=== PATIENT | male | born 1945 | race Caucasian/White ===

== ENCOUNTER 2017-07-12 12:04 | Emergency (ER) | payer OTHER, MEDICARE ==
[~2017-07-12] VITALS: Ht 179.1 cm; Wt 80.9 kg
[~2017-07-12 12:04] MED LIST: ASPI81TA21 PO; ATEN25TA PO; CLOP1TAB54 PO; FISHOIL PO; GEMF600T PO; LISI-729 PO; MULT-506 PO; NITR0.4S UT; ROSU5TAB PO
[2017-07-12 12:20] VITALS: Ht 179.1 cm; Wt 80.9 kg
[2017-07-12] MEDS ORDERED: ASPIRIN 81 MG CHEW PO STA (12:36)
[2017-07-12 12:46] VITALS: TEMP 36.6
--- NOTE | 2017-07-12 12:54 | DIAGNOSTIC IMAGING REPORT ---
CHEST ONE VIEW PORTABLE CLINICAL HISTORY: chest pain dyspnea COMPARISON STUDY: 08/10/2014 FINDINGS: The bones soft tissues and hemidiaphragms are normal. The cardiomediastinal silhouette is normal. The lungs are clear. The pulmonary vasculature is normal. IMPRESSION: Negative chest. The above report was generated using voice recognition software. It may contain grammatical, syntax or spelling errors. Electronically signed by: Abhi Razo M.D. 07/12/2017 12:53 PM Dictated Date/Time: 07/12/2017 12:51 PM
[2017-07-12] MEDS ORDERED: AMLO2.5T PO (13:04)
[2017-07-12] MEDS ORDERED: ATEN50TA8 PO (13:04)
--- NOTE | 2017-07-12 13:09 | EMERGENCY ROOM VISIT NOTE ---
History Report prepared by Carie: Betzy Soares Under the Supervision of: Dr. Giselle Parr M.D. First contact with patient: 12:28 Chief Complaint: CHEST PAIN Stated Complaint: CHEST PAINS-REF BY History of Present Illness The patient is a 72 year old male who presents to the Emergency Room with complaints of intermittent chest pain that initially began this morning when he woke. The patient's states that the patient complained of chest pain at 15 -20 minutes apart. The patient states that the pain lasts 2 seconds at a time. The patient states that this has happened in the past. He states that he took three nitro prior to arrival. The patient states that his last pain was at 1147. He reports a history of stents. The patient states that he took 81 mg of Aspirin today prior to arrival. The patient's reports that this happened to the patient while at a volleyball game a few months ago, noting that the patient's blood pressure was high at the time. The patient denies being a smoker, but was a heavy smoker in the past. He quit in 2007. Source of History: patient Onset: this morning when he woke Position: chest Timing: intermittent Review of Systems See HPI for pertinent positives & negatives. A total of 10 systems reviewed and were otherwise negative. Past Medical & Surgical Medical Problems: (1) Atherosclerotic coronary vascular disease (2) Dyslipidemia (3) History of basal cell carcinoma (4) HTN (hypertension) Surgical Problems: (1) History of inguinal hernia repair (2) S/P angioplasty with stent Family History Blood clots FH: HTN (hypertension) FH: cancer Social History Smoking Status: Never Smoker Alcohol Use: none Drug Use: none Marital Status: Housing Status: lives with significant other Occupation Status: retired Current/Historical Medications Scheduled Amlodipine (Norvasc), 2.5 MG PO HS Aspirin Enteric Coated (Ecotrin Or Generic), 81 MG PO QPM Atenolol (Tenormin), 50 MG PO QAM Clopidogrel Bisulfate (Plavix), 75 MG PO QAM Fish Oil (Oreana-3), 1 CAP PO BID Gemfibrozil (Lopid), 600 MG PO BID Lisinopril (Zestril), 5 MG PO QAM Multivitamin (Multivitamin), 0.5 TABLET PO BID Rosuvastatin Calcium (Crestor), 20 MG PO QPM Scheduled PRN Nitroglycerin (Nitrostat), 0.4 MG UT PRN PRN for Chest Pain Allergies Coded Allergies: Amoxicillin (Verified Allergy, Unknown, Rash, 07/12/17) Source- PT and GMS. Sulfa Antibiotics (Verified Adverse Reaction, Unknown, nausea, 07/12/17) Physical Exam Vital Signs Date Time Temp Pulse Resp B/P (MAP) Pulse Ox O2 Delivery O2 Flow Rate FiO2 07/12/17 15:08 181/94 193/98 07/12/17 14:28 55 15 157/98 97 Room Air 07/12/17 13:30 50 15 151/83 95 Room Air 07/12/17 13:02 58 18 147/83 95 Room Air 07/12/17 12:46 36.6 55 16 141/87 95 Room Air 07/12/17 12:35 52 07/12/17 12:30 95 Room Air 07/12/17 12:20 53 18 183/79 98 Room Air Physical Exam Vital signs reviewed. General: Well-appearing male, in no significant distress. HEENT: No scleral icterus, PERRLA, neck supple. Atraumatic. Cardiovascular: Regular rate and rhythm, no extra sounds. Pulmonary: Clear to auscultation bilaterally, normal work of breathing. Abdomen: Soft, nontender, nondistended, positive bowel sounds. Musculoskeletal: Atraumatic, no peripheral edema. Neurologic: Patient awake alert and oriented x 3, full strength in all 4 extremities. Cranial nerves 2 through 12 grossly intact. Skin: Warm, dry, no rash Medical Decision & Procedures ER Provider Diagnostic Interpretation: X-ray results as stated below per interpretation by me and the radiologist: CHEST ONE VIEW PORTABLE CLINICAL HISTORY: chest pain dyspnea COMPARISON STUDY: 08/10/2014 FINDINGS: The bones soft tissues and hemidiaphragms are normal. The cardiomediastinal silhouette is normal. The lungs are clear. The pulmonary vasculature is normal. IMPRESSION: Negative chest. The above report was generated using voice recognition software. It may contain grammatical, syntax or spelling errors. Electronically signed by: Abhi Razo M.D. 07/12/2017 12:53 PM Dictated Date/Time: 07/12/2017 12:51 PM Laboratory Results 07/12/17 12:39 Red Blood Count 4.31, Mean Corpuscular Volume 90.3, Mean Corpuscular Hemoglobin 31.8, Mean Corpuscular Hemoglobin Concent 35.2, Mean Platelet Volume 10.9, Neutrophils (%) (Auto) 58.7, Lymphocytes (%) (Auto) 29.2, Monocytes (%) (Auto) 6.0, Eosinophils (%) (Auto) 5.3, Basophils (%) (Auto) 0.6, Neutrophils # (Auto) 3.85, Lymphocytes # (Auto) 1.91, Monocytes # (Auto) 0.39, Eosinophils # (Auto) 0.35, Basophils # (Auto) 0.04 07/12/17 12:39 Test 07/12/17 12:39 07/12/17 14:28 White Blood Count 6.55 K/uL (4.8-10.8) Red Blood Count 4.31 M/uL (4.7-6.1) Hemoglobin 13.7 g/dL (14.0-18.0) Hematocrit 38.9 % (42-52) Mean Corpuscular Volume 90.3 fL (80-100) Mean Corpuscular Hemoglobin 31.8 pg (25-34) Mean Corpuscular Hemoglobin Concent 35.2 g/dl (32-36) Platelet Count 155 K/uL (130-400) Mean Platelet Volume 10.9 fL (7.4-10.4) Neutrophils (%) (Auto) 58.7 % Lymphocytes (%) (Auto) 29.2 % Monocytes (%) (Auto) 6.0 % Eosinophils (%) (Auto) 5.3 % Basophils (%) (Auto) 0.6 % Neutrophils # (Auto) 3.85 K/uL (1.4-6.5) Lymphocytes # (Auto) 1.91 K/uL (1.2-3.4) Monocytes # (Auto) 0.39 K/uL (0.11-0.59) Eosinophils # (Auto) 0.35 K/uL (0-0.5) Basophils # (Auto) 0.04 K/uL (0-0.2) RDW Standard Deviation 43.5 fL (36.4-46.3) RDW Coefficient of Variation 13.2 % (11.5-14.5) Immature Granulocyte % (Auto) 0.2 % Immature Granulocyte # (Auto) 0.01 K/uL (0.00-0.02) Prothrombin Time 11.4 SECONDS (9.0-12.0) Prothromb Time International Ratio 1.1 (0.9-1.1) Activated Partial Thromboplast Time 28.0 SECONDS (21.0-31.0) Partial Thromboplastin Ratio 1.1 Anion Gap 7.0 mmol/L (3-11) Est Creatinine Clear Calc Drug Dose 50.0 ml/min Estimated GFR () 59.0 Estimated GFR (Non- 50.9 BUN/Creatinine Ratio 19.9 (10-20) Calcium Level 9.5 mg/dl (8.5-10.1) Total Bilirubin 0.8 mg/dl (0.2-1) Direct Bilirubin 0.2 mg/dl (0-0.2) Aspartate Amino Transf (AST/SGOT) 20 U/L (15-37) Alanine Aminotransferase (ALT/SGPT) 29 U/L (12-78) Alkaline Phosphatase 77 U/L (45-117) Total Creatine Kinase 175 U/L (39-308) Creatine Kinase MB 3.1 ng/ml (0.5-3.6) Creatine Kinase MB Ratio 1.8 (0-3.0) Total Protein 7.5 gm/dl (6.4-8.2) Albumin 4.2 gm/dl (3.4-5.0) Lipase 320 U/L (73-393) Bedside Troponin I < 0.030 ng/ml (0-0.045) Laboratory results per my review. Medications Administered Medications (Trade) Dose Ordered Sig/Sher Route Start Time Stop Time Status Last Admin Dose Admin Aspirin (Aspirin Chew) 243 mg NOW STAT PO 07/12/17 12:36 07/12/17 12:39 DC 07/12/17 13:02 243 MG ECG Indication: chest pain Rate (beats per minute): 50 Rhythm: sinus bradycardia Findings: 1st degree AV block, RBBB, no acute ischemic change ED Course 1235: Past medical records reviewed. The patient was evaluated in room D4B. A complete history and physical examination was performed. 1236: Ordered Aspirin 243 mg PO. 1423: I reevaluated the patient and he is resting comfortably. I discussed the test results with him and I discussed the treatment plan. He verbalized complete understanding and agreement. He is ready to go home. Medical Decision Differential diagnoses includes acute coronary syndrome, pulmonary embolus, aortic dissection, musculoskeletal pain, pneumonia, pleural effusion, pneumothorax, gastritis, peptic ulcer disease. This pt was evaluated and appears to be in no distress. EKG was performed and reveals no acute ischemia. IV access was obtained and pt was placed on the patient monitor. He was given 3 additional baby ASA. CXR is clear. Pt is noted to be moderately HTN. He states his BP consistently rusn 130s/80s at home. He admits to eating at [facility] last night for dinner. His previous BP in the hospital have been elevated for the last several years. Cardiac enzymes are negative x 2, CXR is clear. Pt pain is atypical and maybe r/t BP and salt intake. He is currently pain free. He was educated on the findings and a low Na diet. Pt will f.u with cards as scheduled or sooner if needed. He does monitor BP at home. I do not feel that medication changes are warranted at this time. He will return to the ED for worsening of symptoms or any medical concerns. Medication Reconcilliation Current Medication List: was personally reviewed by me Blood Pressure Screening Patient's blood pressure: Elevated blood pressure Blood pressure disposition: Referred to PCP Impression Primary Impression: Atypical chest pain Additional Impression: Hypertension Scribe Attestation The scribe's documentation has been prepared under my direction and personally reviewed by me in its entirety. I confirm that the note above accurately reflects all work, treatment, procedures, and medical decision making performed by me. Departure Information Dispostion Home / Self-Care Referrals Emiliano Mathis M.D. (PCP) Tenzin Pitt M.D. Forms Call Back Authorization, HOME CARE DOCUMENTATION FORM, IMPORTANT VISIT INFORMATION Patient Instructions My [facility] Additional Instructions Diagnosis: Atypical chest pain, hypertension Please monitor your sodium intake, keep it less than 2000 mg and a day. Continue your medications as prescribed. Monitor your blood pressure 1 time daily, at the same time each day. Follow-up with cardiology as scheduled, call them sooner for any additional issues. Return to the ER for worsening of symptoms or any medical concerns. Problem Qualifiers
[2017-07-12 13:28] LABS: INR 1.1 (0.9-1.1); PARTIAL THROMBOPLASTIN RATIO 1.1; PROTHROMBIN TIME (PATIENT) 11.4 SECONDS (9.0-12.0)
[2017-07-12 13:36] LABS: BASO % 0.6 %; BASO ABS # 0.04 K/uL (0-0.2); COMPLETE YES; EOS % 5.3 %; HEMATOCRIT 38.9 % (42-52); IG% 0.2 %; LYMPH % 29.2 %; LYMPH ABS # 1.91 K/uL (1.2-3.4); MEAN CELL VOLUME 90.3 fL (80-100); MEAN CORPUSCULAR HEMOGLOBIN 31.8 pg (25-34); MEAN CORPUSCULAR HGB CONC 35.2 g/dl (32-36); MEAN PLATELET VOLUME 10.9 fL (7.4-10.4); NEUT % 58.7 %; PLATELET COUNT 155 K/uL (130-400); RED BLOOD COUNT 4.31 M/uL (4.7-6.1); WHITE BLOOD COUNT 6.55 K/uL (4.8-10.8)
[2017-07-12 13:39] LABS: BUN/CREATININE RATIO 19.9 (10-20); CALCIUM 9.5 mg/dl (8.5-10.1); CREATININE 1.36 mg/dl (0.60-1.40); POTASSIUM 3.9 mmol/L (3.5-5.1)
[2017-07-12 13:44] LABS: CKMB/CK RATIO 1.8 (0-3.0)
[2017-07-12 14:28] VITALS: PULSE 55; O2SAT 97
[2017-07-12 15:08] VITALS: BP 193/98
== END 2017-07-12 14:55 | disposition home or self-care (01) ==
LOC: C.EDB 12:05 → C.EDD 14:55
DX: R07.89 Other chest pain (principal); I10 Essential (primary) hypertension; I25.10 Atherosclerotic heart disease of native coronary artery without angina pectoris; E78.5 Hyperlipidemia, unspecified; Z85.828 Personal history of other malignant neoplasm of skin; Z95.5 Presence of coronary angioplasty implant and graft; Z80.9 Family history of malignant neoplasm, unspecified; Z82.49 Family history of ischemic heart disease and other diseases of the circulatory system; Z79.82 Long term (current) use of aspirin; Z79.899 Other long term (current) drug therapy

== ENCOUNTER 2021-12-17 22:12 | Inpatient (IN) ==
[2021-12-17] MEDS ORDERED: fentaNYL citrate 100 MCG/2 ML VIAL IV STA ×2 (22:27→22:58)
[2021-12-17] MEDS ORDERED: SODIUM CHLORIDE 0.9% 1000ML 1,000 ML IV SCH (22:30)
--- NOTE | 2021-12-17 22:45 | Emergency Department Note ---
Impression & Plan Syncope, Abdominal pain, ABLA (acute blood loss anemia), Acute GI bleeding ED Provider Note Provider: Kumar Wells MD DATE OF SERVICE: 12/17/2021 CHIEF COMPLAINT: Syncope, intermittent lower abdominal pain HISTORY OF PRESENT ILLNESS: Patient is a 76-year-old gentleman past medical history significant for HLD, renal artery stenosis, AAA peripheral vascular disease, hypertension, CAD, CKD, autonomic neuropathy, syncope, GI bleed and bacteremia, pneumonia presenting here today via ambulance from home. Report is that the patient evidently had a syncopal event tonight. Was seen here 2 days ago and diagnosed with pneumonia and started on doxycycline. Patient states he was in the bathroom was unable to get details of exactly what happened but that he had passed out. Patient states having some intermittent cramping lower abdominal discomfort and pain. States he feels like he needs to have a bowel movement. Reports some black stools today but not diarrhea. Denies any juliette bloody diarrhea. Denies nausea to me at this time. Denies any chest pain or shortness of breath. Denies striking his head today. EMS report the patient's is coming as well and reported them that she does not want the patient to have additional CAT scans. Patient was hospitalized at the beginning of November for syncope with later transferred to [facility] for GI evaluation of small area of bleeding on nuclear blood scan here. Patient/arrival states is very similar to initial presentation in November. Transfer to [facility] at that time and did not have additional significant intervention. Patient is on Plavix. She reports he was in the bathroom after dinner and became sweaty and pale appearing and then she assisted him down as he passed out and would not wake up. He did vomit up some berries that he had earlier today but she denies it was blood. She reports he did not strike his head. reports that the patient evidently is high and then orthostatic and low blood pressures. REVIEW OF SYSTEMS: A total of 10 review of systems was obtained and negative ex cept as stated above in the HPI. PAST MEDICAL HISTORY: As noted above MEDICATIONS: Reviewed home medications SOCIAL HISTORY: Lives at home with PHYSICAL EXAM: GENERAL: alert and oriented in bed intermittently complaining of lower abdominal pain. Head: normocephalic and atraumatic EYES: No injection, discharge or icterus. NECK: Trachea midline. Supple. ENT: Mucous membranes pink and moist. LUNGS: Airway patent. No retractions. Breath sounds clear with good air entry bilaterally. HEART: Regular rate and rhythm. No chest wall tenderness ABDOMEN: Soft and non-tender, without guarding or rebound. Some intermittent lower abdominal pain but no tenderness on exam or large mass appreciated Rectal: With nurse glass novelty maker Trisha at bedside assisted with changing and clean the patient with some incontinence and is brief. There was a small approximately 2 cm area of black stool at the rectum which was cleaned and Hemoccult positive. NO red blood noted. BACK: No bilateral flank tenderness. SKIN: Acyanotic, warm, diaphoretic somewhat pale in appearance. EXTREMITIES: Without swelling, tenderness or deformity NEUROLOGICAL: No focal deficits. No aphasia. No facial droop or slurred speech. EK bpm normal sinus rhythm with right bundle branch block. No acute ST segment elevation but some slightly increased V1 T wave inversions noted with a QTC of 44. CONTINUOUS CARDIAC MONITORING: was ordered and showed a heart rate of 70s-90s bpm in normal sinus rhythm 1 view chest x-ray per my interpretation no evidence of pneumothorax or significant pleural effusions. There is some bibasilar haziness but no clear lobular pneumonia. Patient's laboratory studies and imaging reviewed. Differential includes Infection, dehydration, metabolic abnormality, hypo/hyperglycemia, electrolyte disturbance, anemia, hypoxia, cardiac sources, intracerebral event, toxicologic, neurologic, as well as other pathologies. IMPRESSION/MEDICAL DECISION MAKING: Patient with a complex past medical history and I did try to review the medical record as able. Additional history from the patient's here. Syncopal here. Intermittent lower abdominal discomfort crampy in nature. Black stools Hemoccult positive the patient did recently start iron supplementation orally. Patient's hemoglobin was checked and basic blood work. No significant trauma is reported. Patient denies chest pain to me. Blood pressures have been variable here. again reports he did not strike his head. There are some question of lower GI bleed and a AVM in the colon evidently not recently intervened upon. The patient is on Plavix. Did receive a total of 1 L of normal saline between EMS and his initial arrival here. Hemoglobin today in the fives. Recent transfusion peer discussed with patient and at bedside. Discussed risk and benefits they wish to proceed with transfusion and they were in agreement. Discussed would like to exclude any AAA issue and ensure that this is a lower GI bleed causing hemoglobin issue and his syncope. Given this they are agreeable to CT and a CT scan of the abdomen pelvis will be completed. Renal function appears near baseline. No significant leukocytosis today. Negative blood cultures from 2 days ago noted in the chart. Doubt this represents sepsis at this point. 2 units of packed red blood cells were ordered initially. Given several doses of fentanyl for pain. Given some Protonix although I doubt this is an upper GI bleed based on the history available to me. Chest x-ray without clear effusions or large lobar pneumonia but has been on treatment with doxycycline. Somewhat hypoxic here likely partially related to his low hemoglobin. Some transient low blood pressures improved some fluid resuscitation. Patient did have 2 black and maroon stools while here again consistent more with a GI bleed. Lactate minimally elevated at 2.5. Review of the CT scan without obvious evidence of aortic dissection or bleed at this point. Final report is below. Discussed with the hospitalist further care here. Patient after the 2 bowel movements and is no longer having abdominal pain. DIAGNOSIS: Acute blood loss anemia, lower GI bleed, lower abdominal pain, syncope DISPOSITION: Hospitalist will evaluate Patient was agreeable with this plan. Critical Care I have personally spent 55 minutes of critical care time in the direct management of this patient. This includes bedside care, interpretation of diagnostic studies, and testing, discussion with consultants, patient, and family members, and other required patient management activities. These 55 minutes is in excess of all separately billable procedures. Preliminary Findings Only See Final Report For Complete Findings CTA ABDOMEN & PELVIS With Contrast: No active GI bleeding visualized. Scattered diverticula without diverticulitis. No bowel obstruction or inflammation. Normal appendix. Liver, spleen, pancreas, adrenal glands are unremarkable. Cholelithiasis without cholecystitis or biliary dilatation. No hydronephrosis. Left kidney cyst. Aortoiliac atherosclerosis. Fusiform infrarenal abdominal aortic aneurysm measuring up to 3.9 cm. Celiac artery is patent. Stenosis in the proximal splenic artery branch. SMA is patent. Bilateral renal arteries are patent. Moderate stenosis proximal right renal artery. CED is patent. Bilateral iliac arteries are patent. Urinary bladder is normal. Prostate is enlarged. No acute osseous findings. Radiologist: Ana Maria Weiss M.D. Study ready at 00:30 and initial results transmitted at 00:42 Past Med/Surg History Medical History (Updated 12/18/21 @ 00:13 by Kumar Wells M.D.) Anemia Iron deficiency anemia 2/2 chronic blood loss (FOBT positive) s/p EGD/Colonscopy 10/24/21 @ [facility] Atypical chest pain Hx of chronic atypical chest pain x several years. [place] "food related" per spouse. No recent issues/rare occurrences. CAD (coronary artery disease) 2003 (stents x2), 2004 (stents x3), 2005 (stents x 2) Chronic kidney disease Follows with nephrology ([facility]); CKD 3B Heart failure Follows with cardiology ([facility]) High cholesterol Controlled History of skin cancer s/p excision HTN (hypertension) Controlled with meds Peripheral vascular disease Follows with vascular (Dr. Najera) Recurrent UTI Renal artery stenosis R Surgical History History of cardiac cath 2003 (stents x2), 2004 (stents x3), 2005 (stents x 2) History of colonoscopy Colonoscopy + EGD (10/24/21): @ [facility], History of esophagogastroduodenoscopy (EGD) History of foot surgery Toe removal History of herniorrhaphy Family History Mother Heart disease Hypertension Family history of reaction to anesthesia PONV Social History Smoking Status: Never smoker Tobacco Type: Cigarettes Second Hand Exposure: No; Hx Alcohol Use: No Hx Substance Use: No Preferred Language: Serbian Communication Ability: Effective Neurophysiological Technician Required: No Beliefs That Will Affect Care: None marital status: Current Living Situation: Spouse current occupational status: retired Feels Safe at Home: Yes Assistive Devices: Glasses, Oxygen - Continuous and Walker Allergies Allergies Allergy/AdvReac Type Severity Reaction Status Date / Time amoxicillin Allergy Intermediate Rash Verified 12/17/21 23:08 linezolid AdvReac Intermediate DIZZINESS, Verified 12/17/21 23:08 CHEST PAIN AFTER 4TH DOSE. Sulfa (Sulfonamide AdvReac Intermediate Hives Verified 12/17/21 23:08 Antibiotics) Home Meds Home Medications Medication Instructions Recorded Confirmed atenolol 25 mg tablet 25 mg PO DAILY 05/18/20 12/17/21 gemfibrozil 600 mg tablet 600 mg PO BID 05/18/20 12/17/21 omega [id number]-[id number]-fish oil 1,200 mg 2 cap PO DAILY 05/18/20 12/17/21 (144 mg-216 mg) capsule (Fish Oil) rosuvastatin 20 mg tablet 20 mg PO DAILY 05/18/20 12/17/21 multivitamin 1 tab PO DAILY 06/13/21 12/17/21 amlodipine 2.5 mg tablet 2.5 mg PO DAILY 11/04/21 12/17/21 omeprazole 20 mg capsule,delayed 20 mg PO QAM 11/04/21 12/17/21 release aspirin 81 mg tablet,delayed 81 mg PO DAILY 12/17/21 12/17/21 release budesonide 1 mg/2 mL suspension 1 mg INHALATION DAILY 12/17/21 12/17/21 for nebulization (Pulmicort) clopidogrel 75 mg tablet 75 mg PO DAILY 12/17/21 12/17/21 ferrous sulfate 325 mg (65 mg 325 mg PO Q OTHER DAY 12/17/21 12/17/21 iron) tablet ipratropium 0.5 mg-albuterol 3 mg 3 ml INHALATION Q4H PRN 12/17/21 12/17/21 (2.5 mg base)/3 mL nebulization soln Previous Rx's Medication Instructions Recorded finasteride 5 mg tablet 5 mg PO DAILY #30 tab 11/16/21 doxycycline hyclate 100 mg capsule 100 mg PO BID 10 Days #20 cap 12/15/21 Results & Data (ED) Vital Signs Vital Signs - 24 hr 12/17/21 22:46 12/17/21 22:52 12/17/21 23:24 Temperature 36.5 C Temperature Source Oral Pulse Rate 76 72 Pulse Rhythm Regular Pulse Strength Normal Respiratory Rate 20 19 Respiratory Effort / Characteristics Non-Labored Respiratory Depth Normal Respiratory Pattern Regular Blood Pressure 91/48 L Blood Pressure [Right Arm] Blood Pressure Mean 62 Blood Pressure Mean [Right Arm] Blood Pressure Position Lying Blood Pressure Position [Right Arm] Pulse Oximetry 98 98 Oxygen Delivery Method Room Air Nasal Cannula Nasal Cannula Oxygen Flow Rate 4 4 Sepsis Recent Fever Within 48 Hours No Sepsis New/Unexplained Change in Mental Status Yes Sepsis Action Taken by Nursing No Action Required 12/17/21 23:25 Temperature Temperature Source Pulse Rate Pulse Rhythm Pulse Strength Respiratory Rate 20 Respiratory Effort / Characteristics Non-Labored Respiratory Depth Normal Respiratory Pattern Regular Blood Pressure Blood Pressure [Right Arm] 111/65 Blood Pressure Mean Blood Pressure Mean [Right Arm] 80 Blood Pressure Position Blood Pressure Position [Right Arm] Lying Pulse Oximetry 94 Oxygen Delivery Method Nasal Cannula Oxygen Flow Rate 4 Sepsis Recent Fever Within 48 Hours Sepsis New/Unexplained Change in Mental Status Sepsis Action Taken by Nursing Laboratory Data Result diagrams: 12/17/21 22:36 12/17/21 22:36 Lab Results 12/17/21 12/17/21 12/17/21 Range/Units 22:36 22:36 22:36 WBC 9.55 (4.8-10.8) K/uL RBC 2.03 L (4.7-6.1) M/uL Hgb 5.9 L* (14.0-18.0) g/dL POC Hgb (14.0-18.0) g/dl Hct 19.0 L* (42-52) % POC Hct (42-52) % MCV 93.6 (80-100) fL MCH 29.1 (25-34) pg MCHC 31.1 L (32-36) g/dL RDW Std Deviation 66.2 H (36.4-46.3) fL RDW Coeff of Jong 19.9 H (11.5-14.5) % Plt Count 216 (130-400) K/uL MPV 10.4 (7.4-10.4) fL Immature Gran % (Auto) 0.4 % Neut % (Auto) 82.4 % Lymph % (Auto) 11.2 % [place] % (Auto) 4.1 % Eos % (Auto) 1.7 % Baso % (Auto) 0.2 % Neut # (Auto) 7.87 H (1.4-6.5) K/uL Lymph # (Auto) 1.07 L (1.2-3.4) K/uL [place] # (Auto) 0.39 (0.11-0.59) K/uL Eos # (Auto) 0.16 (0-0.5) K/uL Baso # (Auto) 0.02 (0-0.2) K/uL Immature Gran # (Auto) 0.04 H (0.00-0.02) K/uL Polychromasia 1+ Anisocytosis Present Echinocytes 1+ Acanthocytes (Spur) 1+ PT (9.0-12.0) Seconds INR (0.9-1.1) POC Sodium (135-144) mmol/L Sodium 141 (136-145) mmol/L POC Potassium (3.3-5.0) mmol/L Potassium 4.2 (3.5-5.1) mmol/L POC Chloride (101-112) mmol/L Chloride 114 H (98-107) mmol/L Carbon Dioxide 16 L (21-32) mmol/L POC Total CO2 (24-31) mmol/L Anion Gap 11 (3-11) POC Anion Gap (16-25) mmol/L POC BUN (7-18) mg/dl BUN 52 H (6-23) mg/dl Creatinine 1.84 H (0.6-1.4) mg/dl POC Creatinine (0.6-1.3) mg/dl Est Cr Clr Drug Dosing 33.4 ml/min Est GFR ( Amer) 39.8 ml/min Est GFR (Non-Af Amer) 34.3 ml/min BUN/Creatinine Ratio 28.3 H (10-20) Glucose 185 H (70-99(Fasting)) mg/dl POC Glucose (other) (70-99) mg/dl Lactate (0.4-2.0) mmol/L Calcium 8.2 L (8.5-10.1) mg/dl POC Ioniz Calcium David (1.12-1.32) mmol/l Magnesium 2.1 (1.7-2.4) mg/dl Total Bilirubin 0.4 (0.2-1.0) mg/dl AST 13 (13-39) U/L ALT 9 (7-52) U/L Alkaline Phosphatase 52 (34-104) U/L Troponin I High Sens 14.0 (0-20) pg/ml Total Protein 4.8 L (6.0-8.3) gm/dl Albumin 3.1 L (3.4-5.0) gm/dl Globulin 1.7 L (2.5-4.0) gm/dl Albumin/Globulin Ratio 1.8 (0.9-2) Lipase (11-82) U/L TSH 3.189 (0.300-4.500) uIu/ml POC Stool Occult Blood (Negative) SARS-CoV-2, RNA, NAAT (NEGATIVE) Blood Type Antibody Screen Crossmatch 12/17/21 12/17/21 12/17/21 Range/Units 22:36 22:47 22:57 WBC (4.8-10.8) K/uL RBC (4.7-6.1) M/uL Hgb (14.0-18.0) g/dL POC Hgb 5.4 L* (14.0-18.0) g/dl Hct (42-52) % POC Hct 16 L* (42-52) % MCV (80-100) fL MCH (25-34) pg MCHC (32-36) g/dL RDW Std Deviation (36.4-46.3) fL RDW Coeff of Jong (11.5-14.5) % Plt Count (130-400) K/uL MPV (7.4-10.4) fL Immature Gran % (Auto) % Neut % (Auto) % Lymph % (Auto) % [place] % (Auto) % Eos % (Auto) % Baso % (Auto) % Neut # (Auto) (1.4-6.5) K/uL Lymph # (Auto) (1.2-3.4) K/uL [place] # (Auto) (0.11-0.59) K/uL Eos # (Auto) (0-0.5) K/uL Baso # (Auto) (0-0.2) K/uL Immature Gran # (Auto) (0.00-0.02) K/uL Polychromasia Anisocytosis Echinocytes Acanthocytes (Spur) PT (9.0-12.0) Seconds INR (0.9-1.1) POC Sodium 141 (135-144) mmol/L Sodium (136-145) mmol/L POC Potassium 4.1 (3.3-5.0) mmol/L Potassium (3.5-5.1) mmol/L POC Chloride 114 H (101-112) mmol/L Chloride (98-107) mmol/L Carbon Dioxide (21-32) mmol/L POC Total CO2 16 L (24-31) mmol/L Anion Gap (3-11) POC Anion Gap 17.0 (16-25) mmol/L POC BUN 57 H (7-18) mg/dl BUN (6-23) mg/dl Creatinine (0.6-1.4) mg/dl POC Creatinine 1.8 H (0.6-1.3) mg/dl Est Cr Clr Drug Dosing ml/min Est GFR ( Amer) ml/min Est GFR (Non-Af Amer) ml/min BUN/Creatinine Ratio (10-20) Glucose (70-99(Fasting)) mg/dl POC Glucose (other) 184 H (70-99) mg/dl Lactate (0.4-2.0) mmol/L Calcium (8.5-10.1) mg/dl POC Ioniz Calcium David 1.18 (1.12-1.32) mmol/l Magnesium (1.7-2.4) mg/dl Total Bilirubin (0.2-1.0) mg/dl AST (13-39) U/L ALT (7-52) U/L Alkaline Phosphatase (34-104) U/L Troponin I High Sens (0-20) pg/ml Total Protein (6.0-8.3) gm/dl Albumin (3.4-5.0) gm/dl Globulin (2.5-4.0) gm/dl Albumin/Globulin Ratio (0.9-2) Lipase 100 H (11-82) U/L TSH (0.300-4.500) uIu/ml POC Stool Occult Blood (Negative) SARS-CoV-2, RNA, NAAT NEGATIVE (NEGATIVE) Blood Type Antibody Screen Crossmatch 12/17/21 12/17/21 12/17/21 Range/Units 23:21 23:35 23:35 WBC (4.8-10.8) K/uL RBC (4.7-6.1) M/uL Hgb (14.0-18.0) g/dL POC Hgb (14.0-18.0) g/dl Hct (42-52) % POC Hct (42-52) % MCV (80-100) fL MCH (25-34) pg MCHC (32-36) g/dL RDW Std Deviation (36.4-46.3) fL RDW Coeff of Jong (11.5-14.5) % Plt Count (130-400) K/uL MPV (7.4-10.4) fL Immature Gran % (Auto) % Neut % (Auto) % Lymph % (Auto) % [place] % (Auto) % Eos % (Auto) % Baso % (Auto) % Neut # (Auto) (1.4-6.5) K/uL Lymph # (Auto) (1.2-3.4) K/uL [place] # (Auto) (0.11-0.59) K/uL Eos # (Auto) (0-0.5) K/uL Baso # (Auto) (0-0.2) K/uL Immature Gran # (Auto) (0.00-0.02) K/uL Polychromasia Anisocytosis Echinocytes Acanthocytes (Spur) PT 13.0 H (9.0-12.0) Seconds INR 1.2 H (0.9-1.1) POC Sodium (135-144) mmol/L Sodium (136-145) mmol/L POC Potassium (3.3-5.0) mmol/L Potassium (3.5-5.1) mmol/L POC Chloride (101-112) mmol/L Chloride (98-107) mmol/L Carbon Dioxide (21-32) mmol/L POC Total CO2 (24-31) mmol/L Anion Gap (3-11) POC Anion Gap (16-25) mmol/L POC BUN (7-18) mg/dl BUN (6-23) mg/dl Creatinine (0.6-1.4) mg/dl POC Creatinine (0.6-1.3) mg/dl Est Cr Clr Drug Dosing ml/min Est GFR ( Amer) ml/min Est GFR (Non-Af Amer) ml/min BUN/Creatinine Ratio (10-20) Glucose (70-99(Fasting)) mg/dl POC Glucose (other) (70-99) mg/dl Lactate 2.5 H* (0.4-2.0) mmol/L Calcium (8.5-10.1) mg/dl POC Ioniz Calcium David (1.12-1.32) mmol/l Magnesium (1.7-2.4) mg/dl Total Bilirubin (0.2-1.0) mg/dl AST (13-39) U/L ALT (7-52) U/L Alkaline Phosphatase (34-104) U/L Troponin I High Sens (0-20) pg/ml Total Protein (6.0-8.3) gm/dl Albumin (3.4-5.0) gm/dl Globulin (2.5-4.0) gm/dl Albumin/Globulin Ratio (0.9-2) Lipase (11-82) U/L TSH (0.300-4.500) uIu/ml POC Stool Occult Blood Positive A (Negative) SARS-CoV-2, RNA, NAAT (NEGATIVE) Blood Type Antibody Screen Crossmatch 12/17/21 Range/Units 23:35 WBC (4.8-10.8) K/uL RBC (4.7-6.1) M/uL Hgb (14.0-18.0) g/dL POC Hgb (14.0-18.0) g/dl Hct (42-52) % POC Hct (42-52) % MCV (80-100) fL MCH (25-34) pg MCHC (32-36) g/dL RDW Std Deviation (36.4-46.3) fL RDW Coeff of Jong (11.5-14.5) % Plt Count (130-400) K/uL MPV (7.4-10.4) fL Immature Gran % (Auto) % Neut % (Auto) % Lymph % (Auto) % [place] % (Auto) % Eos % (Auto) % Baso % (Auto) % Neut # (Auto) (1.4-6.5) K/uL Lymph # (Auto) (1.2-3.4) K/uL [place] # (Auto) (0.11-0.59) K/uL Eos # (Auto) (0-0.5) K/uL Baso # (Auto) (0-0.2) K/uL Immature Gran # (Auto) (0.00-0.02) K/uL Polychromasia Anisocytosis Echinocytes Acanthocytes (Spur) PT (9.0-12.0) Seconds INR (0.9-1.1) POC Sodium (135-144) mmol/L Sodium (136-145) mmol/L POC Potassium (3.3-5.0) mmol/L Potassium (3.5-5.1) mmol/L POC Chloride (101-112) mmol/L Chloride (98-107) mmol/L Carbon Dioxide (21-32) mmol/L POC Total CO2 (24-31) mmol/L Anion Gap (3-11) POC Anion Gap (16-25) mmol/L POC BUN (7-18) mg/dl BUN (6-23) mg/dl Creatinine (0.6-1.4) mg/dl POC Creatinine (0.6-1.3) mg/dl Est Cr Clr Drug Dosing ml/min Est GFR ( Amer) ml/min Est GFR (Non-Af Amer) ml/min BUN/Creatinine Ratio (10-20) Glucose (70-99(Fasting)) mg/dl POC Glucose (other) (70-99) mg/dl Lactate (0.4-2.0) mmol/L Calcium (8.5-10.1) mg/dl POC Ioniz Calcium David (1.12-1.32) mmol/l Magnesium (1.7-2.4) mg/dl Total Bilirubin (0.2-1.0) mg/dl AST (13-39) U/L ALT (7-52) U/L Alkaline Phosphatase (34-104) U/L Troponin I High Sens (0-20) pg/ml Total Protein (6.0-8.3) gm/dl Albumin (3.4-5.0) gm/dl Globulin (2.5-4.0) gm/dl Albumin/Globulin Ratio (0.9-2) Lipase (11-82) U/L TSH (0.300-4.500) uIu/ml POC Stool Occult Blood (Negative) SARS-CoV-2, RNA, NAAT (NEGATIVE) Blood Type A Positive Antibody Screen NEGATIVE Crossmatch See Detail Administered Medications Discontinued Medications Fentanyl Citrate (Fentanyl Citrate 100 Mcg/2 Ml Vial) 25 mcg IV NOW STA Stop: 12/17/21 22:28 Last Admin: 12/17/21 22:41 Dose: 25 mcg Documented by: [id number] Fentanyl Citrate (Fentanyl Citrate 100 Mcg/2 Ml Vial) 25 mcg IV NOW STA Stop: 12/17/21 22:59 Last Admin: 12/17/21 23:12 Dose: 25 mcg Documented by: [id number] Sodium Chloride (Nss 1000ml) 1,000 mls @ 999 mls/hr IV .Q1H1M LOLA Stop: 12/17/21 23:30 Last Admin: 12/17/21 22:44 Dose: 999 mls/hr Documented by: [id number] Ioversol (Optiray 320 125ml) 119 ml IV ONCE ONE Stop: 12/18/21 00:25 Last Admin: 12/18/21 00:24 Dose: 119 ml Documented by: [id number] Discharge Plan Visit Data Chief Complaint: Syncope Stated Complaint: SYNCOPAL EPISODE/ABDOINAL PAIN, DIARRHEA ED Provider: Kumar Wells Discharge Problem: Syncope, Abdominal pain, ABLA (acute blood loss anemia), Acute GI bleeding Patient Disposition: Being Evaluated by Hospitalist Forms Stand Alone Forms: [facility] [employer] Prescriptions Prescriptions: No Action finasteride 5 mg tablet 5 mg PO DAILY Qty: 30 RF: 5 atenolol 25 mg Tablet 25 mg PO DAILY RF: 0 gemfibrozil 600 mg Tablet 600 mg PO BID RF: 0 rosuvastatin 20 mg Tablet 20 mg PO DAILY RF: 0 omega 3-ylk-kby-fish oil [Fish Oil] 1,200 (144-216) mg Capsule 2 cap PO DAILY RF: 0 multivitamin Tablet 1 tab PO DAILY RF: 0 amlodipine 2.5 mg tablet 2.5 mg PO DAILY RF: 0 omeprazole 20 mg capsule,delayed release(DR/EC) 20 mg PO QAM RF: 0 doxycycline hyclate 100 mg capsule 100 mg PO BID 10 Days Qty: 20 RF: 0 clopidogrel 75 mg tablet 75 mg PO DAILY RF: 0 aspirin 81 mg Tablet,Delayed Release (Dr/Ec) 81 mg PO DAILY RF: 0 ipratropium-albuterol [DuoNeb] 0.5 mg-3 mg(2.5 mg base)/3 mL Solution For Nebulization 3 ml INHALATION Q4H PRN (Reason: Dyspnea) RF: 0 ferrous sulfate 325 mg (65 mg iron) tablet 325 mg PO Q OTHER DAY RF: 0 budesonide [Pulmicort] 1 mg/2 mL Suspension For Nebulization 1 mg INHALATION DAILY RF: 0 Referrals Referrals: Jelani Wallace DO [Primary Care Provider] - Discharge Problem: Syncope Qualifiers: Syncope type: unspecified Qualified Code(s): R55 - Syncope and collapse Abdominal pain Qualifiers: Abdominal location: lower abdomen, unspecified Qualified Code(s): R10.30 - Lower abdominal pain, unspecified
[2021-12-17 23:00] LABS: iSTAT Creatinine 1.8 mg/dl (0.6-1.3); iSTAT Hemoglobin 5.4 g/dl (14.0-18.0); iSTAT Ionized Calcium 1.18 mmol/l (1.12-1.32); iSTAT Potassium 4.1 mmol/L (3.3-5.0)
[2021-12-17 23:14] LABS: Hemoglobin 5.9 g/dL (14.0-18.0); Mean Corpuscular Hemoglobin 29.1 pg (25-34); Mean Corpuscular Hgb Conc 31.1 g/dL (32-36); Mean Corpuscular Volume 93.6 fL (80-100); Mean Platelet Volume 10.4 fL (7.4-10.4); Platelet Count 216 K/uL (130-400); RDW Coefficient of Variation 19.9 % (11.5-14.5); RDW Standard Deviation 66.2 fL (36.4-46.3); Red Blood Count 2.03 M/uL (4.7-6.1); White Blood Count 9.55 K/uL (4.8-10.8)
[2021-12-17 23:21] LABS: Acanthocytes 1+; Anisocytosis Present; Basophils # (auto) 0.02 K/uL (0-0.2); Basophils % (auto) 0.2 %; Echinocytes 1+; Eosinophils # (auto) 0.16 K/uL (0-0.5); Eosinophils % (auto) 1.7 %; Immature Granulocytes # (auto) 0.04 K/uL (0.00-0.02); Immature Granulocytes % (auto) 0.4 %; Lymphocytes # (auto) 1.07 K/uL (1.2-3.4); Lymphocytes % (auto) 11.2 %; Monocytes # (auto) 0.39 K/uL (0.11-0.59); Monocytes % (auto) 4.1 %; Neutrophils # (auto) 7.87 K/uL (1.4-6.5); Neutrophils % (auto) 82.4 %; Polychromasia 1+
[2021-12-17 23:25] LABS: Albumin Globulin Ratio 1.8 (0.9-2); Albumin Level 3.1 gm/dl (3.4-5.0); BUN Creatinine Ratio 28.3 (10-20); Bilirubin,Total 0.4 mg/dl (0.2-1.0); Calcium 8.2 mg/dl (8.5-10.1); Creatinine Clr Calc Pharmacy 33.4 ml/min; Est GFR (African American) 39.8 ml/min; Est GFR (Non-African American) 34.3 ml/min; Globulin 1.7 gm/dl (2.5-4.0); Magnesium 2.1 mg/dl (1.7-2.4); Potassium 4.2 mmol/L (3.5-5.1); Total Protein 4.8 gm/dl (6.0-8.3)
[2021-12-17] MEDS ORDERED: SODIUM CHLORIDE 0.9% 250 ML IV PRN (23:29)
[2021-12-17] MEDS ORDERED: PANTOprazole 80 MG in DEXTROSE 5% 100 ML IV STA (23:45)
[2021-12-17 23:55] LABS: INR 1.2 (0.9-1.1)
[2021-12-18] MEDS ORDERED: OPTIRAY 320 125ml IV ONE (00:24)
[2021-12-18] MEDS ORDERED: HYDROmorphone INJ 0.5 MG/0.5 ML SYR IV STA (01:47)
[2021-12-18 02:18] LABS: Adenovirus F 40/41 PCR Not Detected (NotDetected); Astrovirus PCR Not Detected (NotDetected); Campylobacter PCR Not Detected (NotDetected); Cryptosporidium PCR Not Detected (NotDetected); Cyclospora cayetanensis PCR Not Detected (NotDetected); Entamoeba histolytica PCR Not Detected (NotDetected); Enteroaggregative E.coli(EAEC) Not Detected (NotDetected); Enteropathogenic E.coli (EPEC) Not Detected (NotDetected); Enterotoxigenic E.coli (ETEC) Not Detected (NotDetected); Giardia lamblia PCR Not Detected (NotDetected); Norovirus GI/GII PCR Not Detected (NotDetected); Plesiomonas shigelloides PCR Not Detected (NotDetected); Rotavirus A PCR Not Detected (NotDetected); Salmonella PCR Not Detected (NotDetected); Sapovirus PCR Not Detected (NotDetected); Shiga-like Toxin E.coli (STEC) Not Detected (NotDetected); Shigella/Enteroinvasive E.coli Not Detected (NotDetected); Vibrio cholerae PCR Not Detected (NotDetected); Vibrio species PCR Not Detected (NotDetected); Yersinia enterocolitica PCR Not Detected (NotDetected)
[2021-12-18] MEDS ORDERED: ONDANSETRON INJ 2 MG/ML 2 ML VIAL ONE (02:19)
[2021-12-18 03:47] LABS: Cdiff Antigen Negative; Cdiff Toxin A+B Negative Cdiff Toxin (Negative)
[2021-12-18] MEDS ORDERED: SODIUM CHLORIDE 0.9% 250 ML IV PRN (04:35)
[2021-12-18] MEDS ORDERED: NITROGLYCERIN SL 0.4 MG/TAB TAB SL PRN (04:35)
[2021-12-18] MEDS ORDERED: HYDROmorphone INJ 0.5 MG/0.5 ML SYR IV PRN (04:35)
[2021-12-18] MEDS ORDERED: SODIUM CHLORIDE 0.9% 1000ML 1,000 ML IV SCH (04:35)
[2021-12-18] MEDS ORDERED: ONDANSETRON INJ 2 MG/ML 2 ML VIAL IV PRN (04:35)
[2021-12-18] MEDS ORDERED: ALBUT/IPRATROP 3MG/0.5MG NEB 3 ML VIAL INH PRN (04:35)
[2021-12-18] MEDS ORDERED: SODIUM BICARB 8.4% INJ 50 MEQ/50 ML SYR IV ONE (04:35)
[2021-12-18 04:53] LABS: Appearance Urine Clear (Clear); Bacteria Urine Automated Negative (Negative); Bilirubin Urine Negative (Negative); Blood Urine 1+ (Negative); Color Urine Yellow; Epithelial Cell Urine Auto 0-5 /lpf (0-5); Glucose Urine UA Negative (Negative); Ketones Urine Negative (Negative); Leukocyte Esterase Urine Negative (Negative); Nitrite Urine Negative (Negative); Protein Urine Negative (Negative); RBC Urine Automated 0-4 /hpf (0-4); Specific Gravity Urine 1.034 (1.000-1.030); Urobilinogen Urine Negative (Negative); WBC Urine Automated 0 /hpf (0-5)
[2021-12-18] MEDS ORDERED: FUROSEMIDE INJ 20 MG/2 ML VIAL IV ONE (05:00)
--- NOTE | 2021-12-18 05:29 | History and Physical Report ---
DATE OF ADMISSION: 12/18/2021. CHIEF COMPLAINT: Syncope. GI bleed. 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 The patient was recently in the hospital in November 04 with syncope at that time after iron infusion. 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 He received 3 units of PRBC scans and he also had bleeding scan, which showed small nonfocal radiotracer uptake within the right mid pelvis and was transferred to [facility] for device assisted enteroscopy. At that time, cultures also grew Streptococcus salivarius and Streptococcus viridans blood cultures and was on antibiotics. At [facility] no procedure was done as his bleeding stopped and he was advised for 2 weeks of IV Rocephin. His strep culture bacteremia was thought to be from dental care or translocated from the GI. Patient again today he was sleeping in the bed and he became pale and his tried to wake him up, he passed out for 1-2 minutes, then she assisted him to go to bathroom. He had another episode and passed out and EMS came and brought him here. As per the , first time when he passed out when he woke up, he was not confused, on second time he was slightly confused, but when he was in the stretcher seemed to come back to normal.In the ER, he is also having maroon-colored stools and diarrhea and abdominal pain. Hemoglobin was 5.9. 2 units of PRBCs ordered in the ER. Hemodynamically stable. Denies any headache. Complains of some dizziness. No blurred visions, no earache, no runny nose, no sore throat, no cough, no chest pain, no shortness of breath, no nausea or vomiting. Having severe abdominal pain and diarrhea currently, normal bladder movements. No swelling in the legs.As per bee recently PCP started on Doxycycline for possible touch of pneumonia. ALLERGIES: AMOXICILLIN, LINEZOLID, SULFA ANTIBIOTICS. PAST MEDICAL HISTORY: As mentioned above. PAST SURGICAL HISTORY: Colonoscopy, EGD, foot surgery, cardiac stent placement, inguinal hernia repair. FAMILY HISTORY: Significant for father had brain cancer, mother has heart valve replacements, uncle had [place]. SOCIAL HISTORY: , lives with . Quit smoking in 2003, smoked 1 pack a day for 30 years. No alcohol use. No drug use. REVIEW OF SYSTEMS: As per HPI. Rest of review of systems is negative. MEDICATIONS: Currently the patient is on amlodipine 2.5 mg p.o. daily, aspirin 81 mg p.o. daily, atenolol 25 mg p.o. daily, Pulmicort 1 inhalation daily, Plavix 75 mg p.o. daily, ferrous sulfate 325 mg p.o. every other day, finasteride 5 mg p.o. daily, gemfibrozil 600 mg p.o. b.i.d., DuoNebs q. 4 hours p.r.n., multivitamins 1 tablet p.o. daily, [place] fish oil 2 capsules p.o. daily, omeprazole 20 mg p.o. a.m., atorvastatin 20 mg p.o. daily. PHYSICAL EXAMINATION: GENERAL: The patient is alert, oriented, not in acute distress. VITAL SIGNS: Temperature 36.7, pulse 80, respiratory rate 18, blood pressure 136/73, and oxygen 98% on room air. HEENT: Pupils equal, round and reactive to light. Oral mucosa moist. NECK: No JVD, no neck masses. CARDIOVASCULAR: S1 and S2 heard. Regular rate and rhythm. No murmur, no gallop. RESPIRATORY SYSTEM: Normal AP diameter. No accessory muscle use. No wheezing, no crackles. ABDOMEN: Soft, bowel sounds present. Mild diffuse discomfort, no guarding, no rigidity, no distention. CENTRAL NERVOUS SYSTEM: Cranial nerves II through XII are grossly intact, nonfocal. EXTREMITIES: No edema, no erythema. LABORATORY DATA: WBC 9.5, hemoglobin 5.9, hematocrit 19, platelets 216. PT 13, INR 1.2. Sodium 141, potassium 4.2, chloride 114, CO2 of 16, BUN 52, creatinine 1.8, serum glucose 185. Lactate 1.5, calcium 8.2, magnesium 2.1, total bilirubin 0.4, AST 13, ALT 9, alkaline phosphatase 52. Troponin I high sensitivity 14, lipase 100. TSH 3.8. Stool occult blood positive, C. diff detected. SARS-CoV-2 RNA negative. IMAGING DATA: CT of abdomen and pelvis preliminary report, no active bleeding, moderate stenosis proximal right renal artery. CED is patent, bilateral iliac arteries are patent. Prostate is enlarged. Normal appendix, fusiform infrarenal abdominal aortic aneurysm measuring up to 3.9 cm. ASSESSMENT AND PLAN: This is a 76-year-old male who presents with syncope secondary to GI bleed and anemia. 1. Syncope, most secondary to GI bleed and anemia. He had a similar episode on 11/04/2021 at that time his echo was fine. Getting 2 units of PRBC. Consult GI in the a.m. for further recommendations. 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 Further recommendation as per GI. We will keep him n.p.o., IV fluids. Continue Protonix drip. is upset that nothing was done at [facility] on last transfer and does not want to go if not needed.Jermaine as recently had bacteremia probably translocation from GI.Holding aspirin and plavix. Will follow hand h. iv fluids. Pain control. 2. Clostridium difficile positive probably secondary to recent antibiotics for bacteremia. We will place him on p.o. vancomycin. 3. Hypertension: Continue his home medication of atenolol, amlodipine and beta tom. 4. Chronic kidney disease stage III: Baseline creatinine of 1.7, seems to be close to baseline. We will follow the labs. 5. History of coronary artery disease, status post stent, holding his aspirin and Plavix for GI bleed. Continue his metoprolol, statin . 6. Hyperlipidemia: On statin and gemfibrozil. 7. Gastroesophageal reflux disease: Currently on Protonix drip. 8. History of iron deficiency anemia. Currently, acute blood loss anemia. Getting PRBC transfusion and iron supplements. 9. Peripheral vascular disease, on statin. Holding aspirin and Plavix. 10. Abdominal aortic aneurysm 3.9 cm on the CAT scan. Followup. 11. Renal artery stenosis: Needs followup. 12. Deep venous thrombosis prophylaxis: Sequential compression devices for now. DISPOSITION: Closely monitor in tele floor. Level 1 full code Disposition to be determined. Job ID: [id number] [facility]
[2021-12-18] MEDS ORDERED: cefTRIAXone SODIUM 1,000 MG in DEXTROSE 5% 50 ML IV SCH (06:00)
[2021-12-18] MEDS: VANCOMYCIN HCL 250 MG/5 ML SOLN PO SCH ×4 (06:06→18:15)
[2021-12-18] MEDS: RASPBERRY SYRUP 5 ML UDP PO SCH ×3 (06:07→18:15)
[2021-12-18] MEDS: PANTOprazole 40 MG in DEXTROSE 5% 100 ML IV SCH ×4 (06:45→21:06)
[2021-12-18] MEDS: FINASTERIDE 5 MG TAB PO SCH (08:39)
[2021-12-18] MEDS: ATENOLOL 25 MG TABLET PO SCH (08:39)
[2021-12-18] MEDS: gemfibroziL 600 MG TAB PO SCH ×2 (08:39→20:07)
[2021-12-18] MEDS: ROSUVASTATIN CALCIUM 20 MG TAB PO SCH (08:40)
[2021-12-18] MEDS: FERROUS SULFATE 325 MG TAB PO SCH (08:40)
[2021-12-18] MEDS: amLODIPine BESYLATE 5 MG TAB PO SCH (08:40)
--- NOTE | 2021-12-18 08:41 | CT Scan Report ---
CT angio abdomen pelvis w con HISTORY: Generalized abdominal pain, low hemoglobin. Assess for bleed. TECHNIQUE: Multiaxial CT images of the abdomen and pelvis were performed upon the intravenous adminis tration of contrast to evaluate the major arterial structures. Maximal intensity projection images we re also obtained. COMPARISON STUDY: Abdomen and pelvis CT 11/04/2021. FINDINGS: Mild focal narrowing at the proximal celiac artery. The superior mesenteric artery, inferio r mesenteric artery, and common iliac arteries are patent. Extensive calcified plaque within the aort a and iliac arteries with mild multifocal narrowing within the left external iliac artery. The right external iliac artery is patent. There is up to 50% stenosis within the right common femoral artery a nd greater than 75% stenosis at the takeoff of the right superficial femoral artery. There is a focal area of greater than 75% stenosis within the proximal left superficial femoral artery. Bilobed infra renal abdominal aortic aneurysm measuring up to 3.9 cm in diameter. There is also a small suprarenal abdominal aortic aneurysm measuring 3.7 cm in diameter. The heart is mildly enlarged. Mild to moderat e stenosis within the proximal bilateral renal arteries. Patchy groundglass densities within the right lung base with bronchial wall thickening. This may repr esent a pneumonia could be secondary to aspiration. No pneumoperitoneum. No pneumatosis. No fractures within the visualized osseous structures. No retroperitoneal hematoma. Distended and fluid-filled st omach. No bowel wall thickening or obstruction. Colonic diverticulosis. No evidence for acute diverti culitis. Normal appendix. Fluid-filled colon. No retroperitoneal lymphadenopathy. Stable hypodense le jose rafael within the left hepatic lobe likely representing a cyst. Cholelithiasis. No gallbladder wall thi ckening. The spleen and adrenal glands are unremarkable. A 1 cm hypodense lesion within the body of t he pancreas on image 170. No hydronephrosis. A 5.6 cm cyst within the upper pole the left kidney. The re is also an indeterminate 8 mm hypodense lesion within the interpolar region of the left kidney. Mi ld bilateral cortical renal scarring is noted. The bladder is mildly distended. The prostate gland is enlarged. IMPRESSION: 1. Distended and fluid-filled stomach, unchanged. This may represent gastroparesis. 2. No bowel wall thickening or obstruction. 3. Fluid-filled colon. This could be due to diarrhea illness/gastroenteritis or represent the patient 's history of a GI bleed. 4. Abdominal aortic aneurysms again noted measuring up to 3.9 cm. 5. Cholelithiasis. 6. Patchy airspace opacities within the right lung base which have progressed. This may represent a p neumonia and could be due to aspiration. 7. Multifocal stenoses within the bilateral superficial femoral arteries. 8. Additional findings as described above. ACT 112: Negative or not required by law. Electronically signed by: Leandro Perez M.D. 12/18/2021 8:38 AM
--- NOTE | 2021-12-18 08:49 | XRay Report ---
XR chest 1V portable HISTORY: syncope COMPARISON: Chest 12/15/2021. FINDINGS: No pneumothorax. No pleural effusions. The cardiac silhouette remains borderline enlarged. There is right greater the left patchy hazy airspace opacities with interstitial thickening. IMPRESSION: Right greater than left patchy hazy airspace opacities with interstitial thickening. This may represe nt asymmetric pulmonary edema or an atypical pneumonia. ACT 112: Negative or not required by law. Electronically signed by: Leandro Perez M.D. 12/18/2021 8:48 AM
[2021-12-18 09:56] LABS: Basophils # (auto) 0.01 K/uL (0-0.2); Basophils % (auto) 0.1 %; Hematocrit (blood only) 26.3 % (42-52); Hemoglobin 8.5 g/dL (14.0-18.0); Immature Granulocytes # (auto) 0.02 K/uL (0.00-0.02); Immature Granulocytes % (auto) 0.1 %; Lymphocytes # (auto) 0.58 K/uL (1.2-3.4); Lymphocytes % (auto) 4.2 %; Mean Corpuscular Hemoglobin 29.1 pg (25-34); Mean Corpuscular Hgb Conc 32.3 g/dL (32-36); Mean Corpuscular Volume 90.1 fL (80-100); Mean Platelet Volume 10.2 fL (7.4-10.4); Monocytes # (auto) 0.96 K/uL (0.11-0.59); Monocytes % (auto) 6.9 %; Neutrophils # (auto) 12.31 K/uL (1.4-6.5); Neutrophils % (auto) 88.7 %; Platelet Count 189 K/uL (130-400); RDW Coefficient of Variation 18.4 % (11.5-14.5); RDW Standard Deviation 58.9 fL (36.4-46.3); Red Blood Count 2.92 M/uL (4.7-6.1); White Blood Count 13.88 K/uL (4.8-10.8)
--- NOTE | 2021-12-18 10:12 | Gastrointestinal Consultation ---
Date of Consultation December 18, 2021 Assessment & Plan (1) Anemia: (2) Acute GI bleeding: (3) AVM (arteriovenous malformation): acute GI bleeding causing symptomatic anemia, with known hx jejunal AVM, positive bleeding scan on November admission last month; suspect a small bowel bleeding source again, unfortunately no procedure was done at [facility] last admission when he was transferred there despite a positive bleeding scan. recs: --would consider transferring to tertiary care center for device assisted enteroscopy if they will do it. --obtain bleeding scan now to further evaluate --supportive care, IVFs --NPO -protonix 40 mg IV daily for now Thank you for allowing me to participate in the care of this patient History of Present Illness Attending Physician: Delmy Jerry MD History of Present Illness 76-year-old male with past medical history significant for hyperlipidemia, renal artery stenosis, abdominal aortic aneurysm, peripheral vascular disease, hypertension, CAD status post stent, chronic kidney disease stage IIIB, history of neuropathic ulcer in the right foot, idiopathic peripheral autonomic neuropathy, iron deficiency anemia, who presents with syncope. Also noted to have melena and dark red blood per rectum, hgb noted to be 5.9 on admission, now 8.5 s/p 2 units PRBC. He has a hx recurrent anemia and melena and recent workup including EGD, colonoscopy, and capsule endoscopy revealed an AVM in the jejunum. Last admission a bleeding scan was positive and transferred to [facility] for device assisted enteroscopy and unfortunately no procedure [facility] because they felt bleeding stopped. He had an infection as well then and was on IV antibiotics for that, strep culture bacteremia. labs reviewed. Allergies Allergy/AdvReac Type Severity Reaction Status Date / Time amoxicillin Allergy Intermediate Rash Verified 12/17/21 23:08 linezolid AdvReac Intermediate DIZZINESS, Verified 12/17/21 23:08 CHEST PAIN AFTER 4TH DOSE. Sulfa (Sulfonamide AdvReac Intermediate Hives Verified 12/17/21 23:08 Antibiotics) Home Medications Medication Instructions Recorded Confirmed Type atenolol 25 mg tablet 25 mg PO DAILY 05/18/20 12/17/21 History gemfibrozil 600 mg tablet 600 mg PO BID 05/18/20 12/17/21 History omega 4-ccp-cuj-fish oil 1,200 mg 2 cap PO DAILY 05/18/20 12/17/21 History (144 mg-216 mg) capsule (Fish Oil) rosuvastatin 20 mg tablet 20 mg PO DAILY 05/18/20 12/17/21 History multivitamin 1 tab PO DAILY 06/13/21 12/17/21 History amlodipine 2.5 mg tablet 2.5 mg PO DAILY 11/04/21 12/17/21 History omeprazole 20 mg capsule,delayed 20 mg PO QAM 11/04/21 12/17/21 History release finasteride 5 mg tablet 5 mg PO DAILY #30 tab 11/16/21 12/17/21 Rx doxycycline hyclate 100 mg capsule 100 mg PO BID 10 Days #20 cap 12/15/2112/17 Rx aspirin 81 mg tablet,delayed 81 mg PO DAILY 12/17/21 12/17/21 History release budesonide 1 mg/2 mL suspension 1 mg INHALATION DAILY 12/17/21 12/17/21 History for nebulization (Pulmicort) clopidogrel 75 mg tablet 75 mg PO DAILY 12/17/21 12/17/21 History ferrous sulfate 325 mg (65 mg 325 mg PO Q OTHER DAY 12/17/21 12/17/21 History iron) tablet ipratropium 0.5 mg-albuterol 3 mg 3 ml INHALATION Q4H PRN 12/17/21 12/17/21 History (2.5 mg base)/3 mL nebulization soln Patient History Medical History Anemia Iron deficiency anemia 2/2 chronic blood loss (FOBT positive) s/p EGD/Colonscopy 10/24/21 @ [facility] Atypical chest pain Hx of chronic atypical chest pain x several years. [employer] "food related" per spouse. No recent issues/rare occurrences. CAD (coronary artery disease) 2003 (stents x2), 2004 (stents x3), 2005 (stents x 2) Chronic kidney disease Follows with nephrology ([facility]); CKD 3B Heart failure Follows with cardiology ([facility]) High cholesterol Controlled History of skin cancer s/p excision HTN (hypertension) Controlled with meds Peripheral vascular disease Follows with vascular (Dr. Najera) Recurrent UTI Renal artery stenosis R Surgical History History of cardiac cath 2003 (stents x2), 2004 (stents x3), 2005 (stents x 2) History of colonoscopy Colonoscopy + EGD (10/24/21): @ [facility], History of esophagogastroduodenoscopy (EGD) History of foot surgery Toe removal History of herniorrhaphy Family History Mother Heart disease Hypertension Family history of reaction to anesthesia PONV Social History Smoking Status: Never smoker Tobacco Type: Cigarettes Second Hand Exposure: No; Hx Alcohol Use: No Hx Substance Use: No Preferred Language: Ethiopian Communication Ability: Effective Appraisal Manager Required: No Beliefs That Will Affect Care: None marital status: Current Living Situation: Spouse current occupational status: retired Other Information That Helps Us Care for You: No Feels Safe at Home: Yes Safety Concerns: Feels Safe At This Time Assistive Devices: Cane, Oxygen - at Night and Walker Review of Systems Constitutional: no fever, no chills and no weight loss Eyes: as per Subjective / HPI Ear, Nose, Mouth, Throat: as per Subjective / HPI Respiratory: no dyspnea and no dyspnea on exertion Cardiovascular: no chest pain and no palpitations Gastrointestinal: as per Subjective / HPI Musculoskeletal: no joint pain and no swelling Integumentary: no rash and no lesions Neurologic: no numbness and no paresthesia Psychiatric: no depression and no anxiety Endocrine: no fatigue Hematologic / Lymphatic: no easy bleeding and no easy bruising Physical Exam Constitutional: WD/WN, vitals as above Eyes: EOM intact bilaterally Neck: normal visual inspection Respiratory: normal respiratory effort, lungs clear to auscultation Cardiovascular: RRR, no murmur, no edema Gastrointestinal (Abdomen): Inspection/Auscultation: abdomen normal to inspection; abdomen not distended Percussion/Palpation: abdomen soft; abdomen nontender and no hepatosplenomegaly Musculoskeletal: Extremities: no cyanosis Gait: normal gait Skin: no rashes, warm and dry Neurologic: moves all extremities Psychiatric: A+Ox3, euthymic affect Results & Data ([facility]) Vital Signs (Past 12 Hours) Vital Signs Temp Pulse Pulse Resp BP BP Pulse Ox 12/18/21 07:25 36.3 C L 90 18 95/51 L 99 12/18/21 06:32 36.7 C 89 16 137/69 98 12/18/21 06:02 36.7 C 91 H 16 147/68 H 100 12/18/21 05:47 36.7 C 83 16 111/65 99 12/18/21 05:29 36.7 C 83 18 127/65 97 12/18/21 04:38 36.7 C 89 21 137/70 97 12/18/21 04:35 36.7 C 12/18/21 03:05 36.7 C 80 18 136/73 98 12/18/21 03:00 79 16 126/68 99 12/18/21 02:50 81 18 136/73 94 12/18/21 02:45 77 16 123/66 98 12/18/21 02:40 76 15 99 12/18/21 02:30 77 18 112/64 96 12/18/21 02:25 80 18 120/65 99 12/18/21 02:20 84 19 97 12/18/21 02:16 88 17 90/54 L 100 12/18/21 02:10 74 15 100 12/18/21 02:00 75 18 116/65 90 12/18/21 01:57 36.7 C 80 19 120/65 99 12/18/21 01:50 79 17 100 12/18/21 01:40 78 15 100 12/18/21 01:31 77 18 122/60 100 12/18/21 01:30 75 20 98 12/18/21 01:27 36.6 C 74 15 116/65 100 12/18/21 01:20 79 19 100 12/18/21 01:12 36.6 C 75 19 110/58 L 100 12/18/21 01:10 78 17 100 12/18/21 01:00 75 16 112/60 97 12/18/21 00:53 79 18 119/60 100 12/18/21 00:50 78 17 102/69 12/18/21 00:49 36.5 C 79 19 106/51 L 100 12/18/21 00:48 79 16 106/51 L 98 12/18/21 00:40 79 19 108/63 91 12/18/21 00:30 81 17 113/59 L 98 12/18/21 00:28 82 8 L 12/18/21 00:01 78 19 95/40 L 100 12/18/21 00:00 79 21 90 12/17/21 23:50 83 19 145/98 H 99 12/17/21 23:40 77 18 114/65 96 12/17/21 23:31 80 18 100 12/17/21 23:30 79 21 100 12/17/21 23:25 20 111/65 94 12/17/21 23:20 78 18 96 12/17/21 23:10 87 24 98 12/17/21 23:00 80 17 111/65 98 12/17/21 22:55 80 21 116/59 L 98 12/17/21 22:52 72 19 98 12/17/21 22:50 76 18 98 12/17/21 22:46 36.5 C 76 20 91/48 L 98 12/17/21 22:40 78 19 100 12/17/21 22:33 80 18 91/48 L 100 12/17/21 22:30 76 16 98 12/17/21 22:26 78 20 102/55 L 99 12/17/21 22:24 79 15 97 PG Care Time/CCT Total # of Minutes Spent Total Time Spent with Patient: Total time spent is greater than 50% in coordination of care (as documented) at patient's floor/unit and/or counseling patient: Coding Level of Care Code 50318 Initial Inpt Care Lvl 3 Diagnoses Anemia D64.9 Anemia type: unspecified type Acute GI bleeding K92.2 AVM (arteriovenous malformation) Q27.30 (1) Anemia Anemia type: unspecified type Qualified Code(s): D64.9 - Anemia, unspecified
[2021-12-18 10:17] LABS: BUN Creatinine Ratio 34.8 (10-20); Calcium 8.4 mg/dl (8.5-10.1); Est GFR (African American) 47.8 ml/min; Est GFR (Non-African American) 41.3 ml/min; Potassium 3.7 mmol/L (3.5-5.1)
--- NOTE | 2021-12-18 10:30 | Electrocardiogram Report ---
Test Reason : Blood Pressure : / mmHG Vent. Rate : 080 BPM Atrial Rate : 080 BPM P-R Int : 186 ms QRS Dur : 134 ms QT Int : 420 ms P-R-T Axes : 051 049 016 degrees QTc Int : 484 ms Normal sinus rhythm Right bundle branch block non dx inferior Q waves Abnormal ECG When compared with ECG of 15-DEC-2021 10:17, No significant change was found Confirmed by Yury Westbrook ([id number]) on 12/18/2021 10:30:20 AM Referred By: REFERRED SELF Confirmed By:Yury Westbrook
[2021-12-18] MEDS: BUDESONIDE 0.5 MG/2 ML VIAL (PULMICORT) INH SCH (11:18)
--- NOTE | 2021-12-18 11:26 | Communication Note ---
Date of Service: December 18, 2021 Patient seen and examined RN reports patient had 4 maroon colored stool overnight Agree with findings and plans as detailed by Dr Garcia on admission. Completed [address] Kyle recommend possible transfer to tertiary center for possible assistive enteroscopy I called transfer center at [facility] and spoke to GI Dr Betzy Mayfield. We discussed patient. She recommended doing initial investigations first such as EGD and colonoscopy. Dr Kyle plan to do EGD and colonoscopy tomorrow Nuc med GI bleed scan ordered per GI Monitor Hb Keep NPO Continue IVF for now I called and updated her
[2021-12-18] MEDS: D5W AND 1/2NSS 1,000 ML IV SCH ×2 (11:49→22:30)
[2021-12-18] MEDS: ACETAMINOPHEN 325 MG TAB PO PRN ×2 (11:56→19:43)
--- NOTE | 2021-12-18 12:13 | Communication Note ---
Date of Service: December 18, 2021 [facility] and are requesting repeating endoscopic workup. recs: EGD and colonoscopy tomorrow morning prep with golytely 4 L starting tonight at 6 pm, NPO except for prep and meds supportive care Saroj Patel MD Gastroenterology
[2021-12-18 13:17] LABS: Hematocrit (blood only) 26.5 % (42-52); Hemoglobin 8.6 g/dL (14.0-18.0)
[2021-12-18] MEDS ORDERED: LAVAGE SOLUTION 4000ML PO SCH (18:00)
[2021-12-18 20:20] LABS: Hematocrit (blood only) 26.3 % (42-52); Hemoglobin 8.6 g/dL (14.0-18.0)
[2021-12-19] MEDS: RASPBERRY SYRUP 5 ML UDP PO SCH ×6 (00:49→23:06)
[2021-12-19] MEDS: VANCOMYCIN HCL 250 MG/5 ML SOLN PO SCH ×2 (00:49→05:12)
[2021-12-19] MEDS: PANTOprazole 40 MG in DEXTROSE 5% 100 ML IV SCH ×2 (02:11→07:48)
[2021-12-19] MEDS: BUDESONIDE 0.5 MG/2 ML VIAL (PULMICORT) INH SCH (07:49)
--- NOTE | 2021-12-19 07:58 | Anesthesiology Consultation ---
Date of Service December 19, 2021 Assessment & Plan (1) Encounter for pre-operative examination: Chart Review Chart Review: Acceptable Risk for Surgery, Patient NOT seen in Pre Admission Testing and order entry clerk initiated Consults Requested none ASA ASA3 Proposed Anesthesia Anesthesia Type: MAC Risk / Benefits Reviewed With: PT / POA / Parent / Guardian, Accepts Plan and Informed Consent Obtained History Surgery Operation Date: 12/19/21 16:30 Proposed Procedures p Colonoscopy EGD Dr Carlos Eduardo Thibodeaux, Operation Date: 12/19/21 16:45 Proposed Procedures p Colonoscopy Dr Carlos Eduardo Thibodeaux, DO Height/Weight Height: 5 ft 10 in Weight: 71.6 kg Allergies Allergy/AdvReac Type Severity Reaction Status Date / Time amoxicillin Allergy Intermediate Rash Verified 12/17/21 23:08 linezolid AdvReac Intermediate DIZZINESS, Verified 12/17/21 23:08 CHEST PAIN AFTER 4TH DOSE. Sulfa (Sulfonamide AdvReac Intermediate Hives Verified 12/17/21 23:08 Antibiotics) Medications Home Medications Medication Instructions Recorded Confirmed Last Taken atenolol 25 mg tablet 25 mg PO DAILY 05/18/20 12/17/21 12/17/21 gemfibrozil 600 mg tablet 600 mg PO BID 05/18/20 12/17/21 12/17/21 omega 5-qup-ntn-fish oil 1,200 mg 2 cap PO DAILY 05/18/20 12/17/21 12/17/21 (144 mg-216 mg) capsule (Fish Oil) rosuvastatin 20 mg tablet 20 mg PO DAILY 05/18/20 12/17/21 12/17/21 multivitamin 1 tab PO DAILY 06/13/21 12/17/21 12/17/21 amlodipine 2.5 mg tablet 2.5 mg PO DAILY 11/04/21 12/17/21 12/17/21 omeprazole 20 mg capsule,delayed 20 mg PO QAM 11/04/21 12/17/21 12/17/21 release finasteride 5 mg tablet 5 mg PO DAILY #30 tab 11/16/21 12/17/21 12/17/21 doxycycline hyclate 100 mg capsule 100 mg PO BID 10 Days #20 cap 12/15/21 12/17/21 12/17/21 aspirin 81 mg tablet,delayed 81 mg PO DAILY 12/17/21 12/17/21 12/17/21 release budesonide 1 mg/2 mL suspension 1 mg INHALATION DAILY 12/17/21 12/17/21 Unknown for nebulization (Pulmicort) clopidogrel 75 mg tablet 75 mg PO DAILY 12/17/21 12/17/21 12/17/21 ferrous sulfate 325 mg (65 mg 325 mg PO Q OTHER DAY 12/17/21 12/17/21 12/16/21 iron) tablet ipratropium 0.5 mg-albuterol 3 mg 3 ml INHALATION Q4H PRN 12/17/21 12/17/21 Unknown (2.5 mg base)/3 mL nebulization soln Active Medications Generic Name Dose Route Start Last Admin Trade Name Freq PRN Reason Stop Dose Admin Acetaminophen 650 mg 12/18/21 04:35 12/18/21 19:43 Acetaminophen 325 Mg Tab PO 01/17/22 04:34 650 mg Q4H PRN Administration Pain or Fever Amlodipine Besylate 2.5 mg 12/18/21 09:00 12/18/21 08:40 Amlodipine Besylate 5 Mg Tab PO 01/17/22 08:59 2.5 mg DAILY LOLA Administration Atenolol 25 mg 12/18/21 09:00 12/18/21 08:39 Atenolol 25 Mg Tablet PO 01/17/22 08:59 25 mg DAILY LOLA Administration Budesonide 1 mg 12/18/21 08:00 12/19/21 07:49 Budesonide 0.5 Mg/2 Ml Vial (Pulmicort) INH 01/17/22 07:59 Not Given QDR LOLA Ferrous Sulfate 325 mg 12/18/21 09:00 12/18/21 08:40 Ferrous Sulfate 325 Mg Tab PO 01/17/22 08:59 325 mg Q48H LOAL Administration Finasteride 5 mg 12/18/21 09:00 12/18/21 08:39 Finasteride 5 Mg Tab PO 01/17/22 08:59 5 mg DAILY LOLA Administration Gemfibrozil 600 mg 12/18/21 09:00 12/18/21 20:07 Gemfibrozil 600 Mg Tab PO 01/17/22 08:59 600 mg BID LOLA Administration Hydromorphone HCl 0.5 mg 12/18/21 04:35 12/18/21 22:29 Hydromorphone Inj 0.5 Mg/0.5 Ml Syr IV 01/01/22 04:34 0.5 mg Q3H PRN Administration Pain Pantoprazole Sodium 40 mg/ 100 mls @ 20 mls/hr 12/18/21 05:00 12/19/21 07:48 Dextrose IV 01/17/22 04:59 8 mg/hr Q5H LOLA 20 mls/hr Administration 8 MG/HR Dextrose/Sodium Chloride 1,000 mls @ 75 mls/hr 12/18/21 11:30 12/19/21 07:51 D5w And 1/2nss IV 01/17/22 11:29 0 mls/hr .[id number] LOLA Infusion Polyethylene Glycol/Electrolytes 16 dose 12/18/21 18:00 12/18/21 18:15 Lavage Solution 4000ml PO 12/19/21 09:00 16 dose TODAY@1800 LOLA Administration Raspberry 5 ml 12/18/21 06:00 12/19/21 05:12 Raspberry Syrup 5 Ml Udp PO 12/28/21 05:59 5 ml Q6 LOLA Administration Rosuvastatin Calcium 20 mg 12/18/21 09:00 12/18/21 08:40 Rosuvastatin Calcium 20 Mg Tab PO 01/17/22 08:59 20 mg DAILY LOLA Administration Vancomycin HCl 250 mg 12/18/21 03:40 12/19/21 05:12 Vancomycin Hcl 250 Mg/5 Ml Soln PO 12/28/21 03:39 250 mg Q6 LOLA Administration Past Medical History Medical History (Updated 12/19/21 @ 08:01 by Jim Carrasco MD) Anemia 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 [place] "food related" per spouse. No recent issues/rare occurrences. CAD (coronary artery disease) 2003 (stents x2), 2004 (stents x3), 2006 (stents x 2) Chronic kidney disease Follows with nephrology ([facility]); CKD 3B Encounter for pre-operative examination Heart failure Follows with cardiology ([facility]) High cholesterol Controlled History of skin cancer s/p excision HTN (hypertension) Controlled with meds Peripheral vascular disease Follows with vascular (Dr. Reinaldo) Recurrent UTI Renal artery stenosis R Past Family History Family History Mother Heart disease Hypertension Family history of reaction to anesthesia PONV Past Surgical History Surgical History History of cardiac cath 2003 (stents x2), 2004 (stents x3), 2005 (stents x 2) History of colonoscopy Colonoscopy + EGD (10/24/21): @ [facility], History of esophagogastroduodenoscopy (EGD) History of foot surgery Toe removal History of herniorrhaphy Social History Smoking Status: Never smoker Hx Alcohol Use: No Hx Substance Use: No substance use type: does not use Physical Exam Vital Signs Last Vital Signs Temp 36.4 C L 12/19/21 07:40 Pulse 72 12/19/21 07:57 Resp 17 12/19/21 07:40 BP 101/57 L 12/19/21 07:40 Pulse Ox 98 12/19/21 07:40 Testing Laboratory Results 12/18/21 20:11 12/18/21 09:46 PT 13.0 Seconds (9.0-12.0) H 12/17/21 23:35 INR 1.2 (0.9-1.1) H 12/17/21 23:35 Urine Color Yellow 12/18/21 04:30 Urine Appearance Clear (Clear) 12/18/21 04:30 Urine pH 6.0 (4.5-7.5) 12/18/21 04:30 Ur Specific [place] 1.034 (1.000-1.030) H 12/18/21 04:30 Urine Protein Negative (Negative) 12/18/21 04:30 Urine Glucose (UA) Negative (Negative) 12/18/21 04:30 Urine Ketones Negative (Negative) 12/18/21 04:30 Urine Nitrite Negative (Negative) 12/18/21 04:30 Ur Leukocyte Esterase Negative (Negative) 12/18/21 04:30 Urine WBC (Auto) 0 /hpf (0-5) 12/18/21 04:30 Urine RBC (Auto) 0-4 /hpf (0-4) 12/18/21 04:30 U Hyaline Cast (Auto) 1-5 /lpf (0-5) 12/18/21 04:30 U Epithel Cells (Auto) 0-5 /lpf (0-5) 12/18/21 04:30 Urine Bacteria (Auto) Negative (Negative) 12/18/21 04:30 Blood Type A Positive 12/17/21 23:35 Antibody Screen NEGATIVE 12/17/21 23:35 Electrocardiogram Date: 12/17/21 Normal sinus rhythm Right bundle branch block non dx inferior Q waves Abnormal ECG When compared with ECG of 15-DEC-2021 10:17, No significant change was found Confirmed by Yury Westbrook ([id number]) on 12/18/2021 10:30:20 AM Chest X-Ray Date: 12/17/21 HISTORY: syncope COMPARISON: Chest 12/15/2021. FINDINGS: No pneumothorax. No pleural effusions. The cardiac silhouette remains borderline enlarged. There is right greater the left patchy hazy airspace opacities with interstitial thickening. IMPRESSION: Right greater than left patchy hazy airspace opacities with interstitial thickening. This may represent asymmetric pulmonary edema or an atypical pneumonia.
[2021-12-19] MEDS ORDERED: MIDAZOLAM HCL 1 MG/ML 2ML VIAL ONE (08:02)
[2021-12-19] MEDS ORDERED: LIDOCAINE 2% 2 ML VIAL/AMP(20MG/ML) INFIL ONE (08:12)
[2021-12-19] MEDS ORDERED: ONDANSETRON INJ 2 MG/ML 2 ML VIAL ONE (08:12)
[2021-12-19] MEDS ORDERED: PROPOFOL IV EMULSION 10 MG/ML 20 ML VIAL IV ONE (08:12)
--- NOTE | 2021-12-19 08:43 | History & Physical Bridge Note ---
Date of Service December 19, 2021 History & Physical Bridge Note I have examined the patient, reviewed the History & Physical and in the interval since the performance of the History & Physical I have noted the following changes of clinical significance: no changes noted. She with recurrent anemia thought to be related to gastrointestinal losses. Based on the patient's history I wonder if this is related to the ongoing use of aspirin and Plavix. We are certainly happy to provide endoscopic evaluation for relook at the gastrointestinal tract to see if there is an obvious site of bleeding. I have discussed the risks of the procedures with the patient to include bleeding, infection, perforation, pain, aspiration and need for follow-up studies.
[2021-12-19] MEDS ORDERED: PHENYLEPHRINE HCL 10 MG/ML VIAL ONE (09:30)
--- NOTE | 2021-12-19 09:35 | GI REPORT ---
Patient Name: Farooq Alvarez Procedure Date: 12/19/2021 8:38 AM Date of : 1945 Admit Type: Inpatient Age: 76 Gender: Male Attending MD: Jenny Thibodeaux DO Procedure: Small bowel enteroscopy Providers: Jenny Thibodeaux DO Referring MD: Delmy Jerry Md Indications: Melena Medicines: Monitored Anesthesia Care Complications: No immediate complications. Estimated blood loss: Minimal. Estimated Blood Loss: Estimated blood loss was minimal. Procedure: Pre-Anesthesia Assessment: - Prior to the procedure, a History and Physical was performed, and patient medications, allergies and sensitivities were reviewed. The patient's tolerance of previous anesthesia was reviewed. - The risks and benefits of the procedure and the sedation options and risks were discussed with the patient. All questions were answered and informed consent was obtained. - Patient identification and proposed procedure were verified prior to the procedure by the physician, the nurse and the computer networking instructor. The procedure was verified in the procedure room. - Pre-procedure physical examination revealed no contraindications to sedation. - ASA Grade Assessment: III - A patient with severe systemic disease. - After reviewing the risks and benefits, the patient was deemed in satisfactory condition to undergo the procedure. - The anesthesia plan was to use monitored anesthesia care (MAC). - Immediately prior to administration of medications, the patient was re-assessed for adequacy to receive sedatives. - The heart rate, respiratory rate, oxygen saturations, blood pressure, adequacy of pulmonary ventilation, and response to care were monitored throughout the procedure. - The physical status of the patient was re-assessed after the procedure. After obtaining informed consent, the endoscope was passed under direct vision. Throughout the procedure, the patient's blood pressure, pulse, and oxygen saturations were monitored continuously. The Colonoscope was introduced through the mouth, and advanced to the jejunum. After obtaining informed consent, the endoscope was passed under direct vision. Throughout the procedure, the patient's blood pressure, pulse, and oxygen saturations were monitored continuously.The small bowel enteroscopy was accomplished without difficulty. The patient tolerated the procedure well. Findings: The examined esophagus was normal. One non-obstructing non-bleeding superficial gastric ulcer of mild severity with no stigmata of bleeding was found in the cardia. The lesion was 5 mm in largest dimension. The gastric body, incisura and gastric antrum were normal. There was no evidence of significant pathology in the entire examined duodenum. There was no evidence of significant pathology in the proximal jejunum. Impression: - Normal esophagus. - Non-obstructing non-bleeding gastric ulcer with no stigmata of bleeding. NSAID induced etiology. - Normal gastric body, incisura and antrum. - Normal examined duodenum. - The examined portion of the jejunum was normal. - No specimens collected. Recommendation: - Use Protonix (pantoprazole) 20 mg PO daily. - Use sucralfate tablets 1 gram PO QID for 2 weeks. - Repeat the small bowel enteroscopy in 3 months for surveillance. Jenny Thibodeaux D.O. Jenny Thibodeaux, 12/19/2021 9:34:24 AM This report has been signed electronically. Note Initiated On: 12/19/2021 8:38 AM Number of Addenda: 0 I attest to the content of the Intraoperative Record and orders documented therein, exceptions below {[id number]}
--- NOTE | 2021-12-19 09:40 | GI REPORT ---
Patient Name: Farooq Alvarez Procedure Date: 12/19/2021 8:37 AM Date of : 1945 Admit Type: Inpatient Age: 76 Gender: Male Attending MD: Jenny Thibodeaux DO Procedure: Colonoscopy Providers: Jenny Thibodeaux DO Referring MD: Delmy Jerry Md Indications: Melena Medicines: Monitored Anesthesia Care Complications: No immediate complications. Estimated blood loss: Minimal. Estimated Blood Loss: Estimated blood loss was minimal. Procedure: Pre-Anesthesia Assessment: - Prior to the procedure, a History and Physical was performed, and patient medications, allergies and sensitivities were reviewed. The patient's tolerance of previous anesthesia was reviewed. - The risks and benefits of the procedure and the sedation options and risks were discussed with the patient. All questions were answered and informed consent was obtained. - Patient identification and proposed procedure were verified prior to the procedure by the physician, the nurse and the epic radiant analyst. The procedure was verified in the procedure room. - Pre-procedure physical examination revealed no contraindications to sedation. - ASA Grade Assessment: III - A patient with severe systemic disease. - After reviewing the risks and benefits, the patient was deemed in satisfactory condition to undergo the procedure. - The anesthesia plan was to use monitored anesthesia care (MAC). - Immediately prior to administration of medications, the patient was re-assessed for adequacy to receive sedatives. - The heart rate, respiratory rate, oxygen saturations, blood pressure, adequacy of pulmonary ventilation, and response to care were monitored throughout the procedure. - The physical status of the patient was re-assessed after the procedure. After I obtained informed consent, the scope was passed under direct vision. Throughout the procedure, the patient's blood pressure, pulse, and oxygen saturations were monitored continuously. The Colonoscope was introduced through the anus and advanced to the terminal ileum. The colonoscopy was performed without difficulty. The patient tolerated the procedure well. The quality of the bowel preparation was fair. Findings: Hemorrhoids were found on perianal exam. The terminal ileum appeared normal. The transverse colon, hepatic flexure, ascending colon and cecum appeared normal. Segmental severe inflammation characterized by congestion (edema), granularity and serpentine ulcerations was found in the rectum, in the sigmoid colon, in the descending colon and at the splenic flexure. Biopsies were taken with a cold forceps for histology. Fluid aspiration was performed through the scope suction channel. Sample(s) were sent for bacterial cultures and Clostridium difficile. The pathology specimen was placed into Bottle A. Estimated blood loss was minimal. Impression: - Preparation of the colon was fair. - Hemorrhoids found on perianal exam. - The examined portion of the ileum was normal. - The transverse colon, hepatic flexure, ascending colon and cecum are normal. - Segmental severe inflammation was found in the rectum, in the sigmoid colon, in the descending colon and at the splenic flexure secondary to ischemic colitis or C diff colitis. Biopsied. Fluid aspiration performed. Recommendation: - Return patient [facility] for [facility] care. - Given the positive C diff PCR would suggest a Course of Vancomycin 125 mg QID for 14 days. Jenny Thibodeaux D.O. Jenny Thibodeaux, 12/19/2021 9:39:08 AM This report has been signed electronically. Note Initiated On: 12/19/2021 8:37 AM Number of Addenda: 0 I attest to the content of the Intraoperative Record and orders documented therein, exceptions below {[id number]}
--- NOTE | 2021-12-19 09:40 | Communication Note ---
Date of Service: December 19, 2021 The patient underwent upper endoscopy and colonoscopy today. The upper endoscopy was notable for small superficial ulceration in the gastric cardia. The colonoscopy was notable for diffuse inflammatory changes and ulceration of the left colon. Given the history I wonder if the patient may have C. difficile colitis or perhaps ischemic colitis. Recommendation Protonix or omeprazole 20 mg 1 time daily Carafate 1 g 4 times daily for 2 weeks Vancomycin 125 mg 4 times daily for 14 days Repeat upper endoscopy and colonoscopy in 3 to 4 months
[2021-12-19 10:46] LABS: Hematocrit (blood only) 22.5 % (42-52); Hemoglobin 7.2 g/dL (14.0-18.0); Mean Corpuscular Hemoglobin 29.3 pg (25-34); Mean Corpuscular Volume 91.5 fL (80-100); Mean Platelet Volume 9.3 fL (7.4-10.4); Platelet Count 137 K/uL (130-400); RDW Coefficient of Variation 19.4 % (11.5-14.5); RDW Standard Deviation 62.9 fL (36.4-46.3); Red Blood Count 2.46 M/uL (4.7-6.1); White Blood Count 8.45 K/uL (4.8-10.8)
[2021-12-19] MEDS: ROSUVASTATIN CALCIUM 20 MG TAB PO SCH (10:57)
[2021-12-19] MEDS: FINASTERIDE 5 MG TAB PO SCH (10:58)
[2021-12-19] MEDS: ATENOLOL 25 MG TABLET PO SCH (10:58)
[2021-12-19] MEDS: gemfibroziL 600 MG TAB PO SCH ×2 (10:59→20:08)
[2021-12-19] MEDS: amLODIPine BESYLATE 5 MG TAB PO SCH (11:00)
[2021-12-19] MEDS: VANCOMYCIN HCL 125 MG/2.5ML SOLN PO SCH ×3 (11:02→23:06)
[2021-12-19 11:10] LABS: BUN Creatinine Ratio 23.2 (10-20); Calcium 8.5 mg/dl (8.5-10.1); Creatinine Clr Calc Pharmacy 43.4 ml/min; Est GFR (African American) 54.4 ml/min; Potassium 3.5 mmol/L (3.5-5.1)
[2021-12-19] MEDS: PANTOprazole 40 MG TAB PO SCH (12:01)
--- NOTE | 2021-12-19 12:21 | Hospitalist Progress Note ---
Date of Service December 19, 2021 Assessment & Plan (1) Acute GI bleeding: (2) Syncope: (3) C. difficile colitis: (4) Acute blood loss anemia: Plan: Patient presented with syncope and was having brown-colored stool in the ER. Hemoglobin was 5.9 on presentation and got 2 units of blood yesterday. Patient had EGD and colonoscopy today. EGD showed normal esophagus, nonobstructing nonbleeding gastric ulcer. Colonoscopy showed segmental severe inflammation in the rectum and sigmoid colon, descending colon normal splenic flexure suggestive of ischemic colitis or c diff colitis Discussed with gastroenterology who recommend continuing PPI daily for 2 weeks and to add Carafate 1 g 4 times daily. Patient C. difficile test was positive in view of inflammation noted on colonoscopy, will treat to C. difficile colitis. Patient already on p.o. vancomycin. Continue this for 2 weeks Electronics Mechanic recommend resuming home ASA and plavix in view of possible ischemic colitis Continue to monitor hemoglobin. Transfuse as needed to keep hemoglobin above 7. (5) Chronic kidney disease: Plan: Cr is 1.42 Avoid nephrotoxins (6) Atherosclerotic coronary vascular disease: Plan: S/p stents PVD Resume aspirin and plavix as above Continue rosuvastatin Admission and Anticipated Discharge Date Admission Date: December 18, 2021 Subjective Patient seen and examined Patient reports he had low abdominal pain earlier but none at this time Denied any nausea, vomiting Per RN, bowel movements cleared up overnight with bowel prep for colonoscopy Denied any chest pain, palpitation Denied cough, shortness of breath Denied dysuria, freq, hematuria Denied fever, chills Physical Exam Constitutional: + well hydrated; no acute distress Eyes: PERRL, conjunctivae normal, anicteric sclerae ENMT: external ear and nose normal, oropharynx normal Respiratory: normal respiratory effort, lungs clear to auscultation Cardiovascular: Rate/Rhythm: regular rate S1 S2 Gastrointestinal (Abdomen): normal bowel sounds, soft, nontender, no hepatosplenomegaly Neurologic: PERRL, EOMI, accommodation nl, no face palsy, no dysarthria Alert and oriented to person, place, month and year only Results & Data Results & Data ([facility]) Vital Signs (Past 12 Hours) Vital Signs Temp Pulse Pulse Resp BP Pulse Ox 12/19/21 11:16 36.6 C 78 16 130/65 96 05/16/22 10:58 68 124/64 12/19/21 10:05 67 16 117/57 L 97 12/19/21 09:50 62 16 95/43 L 98 12/19/21 09:35 61 16 109/58 L 99 12/19/21 08:35 37.2 C 79 18 135/64 97 12/19/21 07:57 72 12/19/21 07:40 36.4 C L 74 17 101/57 L 98 12/19/21 04:22 36.8 C 89 16 124/63 96 Laboratory Results Abnormal lab results 12/18/21 12/19/21 12/19/21 Range/Units 20:11 10:35 10:35 RBC 2.46 L (4.7-6.1) M/uL Hgb 8.6 L 7.2 L (14.0-18.0) g/dL Hct 26.3 L 22.5 L (42-52) % RDW Std Deviation 62.9 H (36.4-46.3) fL RDW Coeff of Jong 19.4 H (11.5-14.5) % Chloride 115 H (98-107) mmol/L BUN 33 H D (6-23) mg/dl Creatinine 1.42 H (0.6-1.4) mg/dl BUN/Creatinine Ratio 23.2 H (10-20) (1) Syncope Syncope type: unspecified Qualified Code(s): R55 - Syncope and collapse
--- NOTE | 2021-12-19 15:06 | Anesthesiology Progress Note ---
Date of Service December 19, 2021 Anesthesia Post Procedure Vital Signs Vital Signs: Temp Pulse Pulse Resp BP Pulse Ox 12/19/21 11:16 36.6 C 78 16 130/65 96 12/19/21 10:58 68 124/64 12/19/21 10:05 67 16 117/57 L 97 12/19/21 09:50 62 16 95/43 L 98 12/19/21 09:35 61 16 109/58 L 99 12/19/21 08:35 37.2 C 79 18 135/64 97 12/19/21 07:57 72 12/19/21 07:40 36.4 C L 74 17 101/57 L 98 12/19/21 04:22 36.8 C 89 16 124/63 96 12/18/21 23:05 36.5 C 81 18 111/62 91 12/18/21 20:22 36.7 C 83 20 112/57 L 91 12/18/21 15:28 81 12/18/21 15:10 36.4 C L 78 19 113/47 L 99 Pain Intensity Bilateral Abdomen: Pain Intensity: 7 Transfer of Care Handoff Completed per policy Notes Mental Status: alert / awake / arousable and participated in evaluation Patient Amnestic to Procedure: Yes Nausea / Vomiting: adequately controlled Pain: adequately controlled Airway Patency, RR, SpO2: stable & adequate BP & HR: stable & adequate Hydration State: stable & adequate Anesthetic Complications: no major complications apparent and Pt Satisfied with anesthetic care
--- NOTE | 2021-12-19 15:19 | Nuclear Medicine Report ---
NUCLEAR GI BLEEDING SCAN CLINICAL HISTORY: GI bleeding. COMPARISON STUDY: Abdominal CT dated 12/18/2021. Nuclear bleeding scan dated 11/04/2021. TECHNIQUE: Following the IV administration of 27.3 mCi of technetium 99m UltraTag labeled red blood c ells, nuclear bleeding scan was performed. Anterior flow images were obtained every 2 seconds for a t otal 58 seconds. Anterior static images were obtained every 5 minutes for a total of 50 minutes. FINDINGS: There is expected tracer activity within the abdominal aorta, as well as expected accumulation within the liver and spleen. There is no abnormal tracer deposition identified typical for active GI bleedi ng. IMPRESSION: There is no scintigraphic evidence of active GI bleeding at the time of examination. ACT 112: Negative or not required by law. Electronically signed by: Antoine Rojo M.D. 12/19/2021 3:17 PM
[2021-12-19 16:29] LABS: Hematocrit (blood only) 23.9 % (42-52); Hemoglobin 7.7 g/dL (14.0-18.0); Mean Corpuscular Hemoglobin 29.3 pg (25-34); Mean Corpuscular Hgb Conc 32.2 g/dL (32-36); Mean Corpuscular Volume 90.9 fL (80-100); Mean Platelet Volume 10.3 fL (7.4-10.4); Platelet Count 175 K/uL (130-400); RDW Coefficient of Variation 19.9 % (11.5-14.5); RDW Standard Deviation 63.4 fL (36.4-46.3); Red Blood Count 2.63 M/uL (4.7-6.1); White Blood Count 9.74 K/uL (4.8-10.8)
[2021-12-19] MEDS: SUCRALFATE 1 GM/10 ML UDC PO SCH ×3 (16:33→20:09)
[2021-12-19] MEDS: D5W AND 1/2NSS 1,000 ML IV SCH (16:45)
[2021-12-19 23:09] LABS: Hematocrit (blood only) 20.9 % (42-52); Hemoglobin 6.7 g/dL (14.0-18.0)
[2021-12-19] MEDS ORDERED: SODIUM CHLORIDE 0.9% 250 ML IV PRN (23:15)
[2021-12-20] MEDS: RASPBERRY SYRUP 5 ML UDP PO SCH ×5 (05:35→23:01)
[2021-12-20] MEDS: VANCOMYCIN HCL 125 MG/2.5ML SOLN PO SCH ×5 (05:35→23:01)
[2021-12-20 06:33] LABS: Hematocrit (blood only) 23.4 % (42-52); Hemoglobin 7.7 g/dL (14.0-18.0); Mean Corpuscular Hemoglobin 30.3 pg (25-34); Mean Corpuscular Hgb Conc 32.9 g/dL (32-36); Mean Corpuscular Volume 92.1 fL (80-100); Mean Platelet Volume 10.3 fL (7.4-10.4); Platelet Count 161 K/uL (130-400); RDW Coefficient of Variation 18.6 % (11.5-14.5); RDW Standard Deviation 61.6 fL (36.4-46.3); Red Blood Count 2.54 M/uL (4.7-6.1); White Blood Count 6.38 K/uL (4.8-10.8)
[2021-12-20 06:58] LABS: Calcium 8.6 mg/dl (8.5-10.1); Creatinine Clr Calc Pharmacy 43.8 ml/min; Est GFR (African American) 54.9 ml/min; Est GFR (Non-African American) 47.4 ml/min; Potassium 3.8 mmol/L (3.5-5.1)
[2021-12-20] MEDS: BUDESONIDE 0.5 MG/2 ML VIAL (PULMICORT) INH SCH (07:46)
--- NOTE | 2021-12-20 08:46 | Gastroenterology Progress Note ---
Date of Service December 20, 2021 Assessment & Plan (1) C. difficile colitis: Plan: S/P EGD/Colonoscopy for melena and anemia, EGD w/ ulceration and colonoscopy concerning for colitis, given c.diff gene positive started on therapy for c.diff colitis, biopsy is pending Continue Protonix or omeprazole 20 mg 1 time daily Continue Carafate 1 g 4 times daily for 2 weeks Continue Vancomycin 125 mg 4 times daily for 14 days Repeat upper endoscopy and colonoscopy in 3 to 4 months GI to sign off. Recall if needed. Continue conserative measures. Admission and Anticipated Discharge Date Admission Date: December 18, 2021 Supervising Physician Co-Signing Physician Notes I saw and evaluated the patient. He does appear to be improved from yesterday notes having no abdominal discomfort or hematochezia. Of note the patient was found to have evidence of ulcerative changes within the left colon suggestive of ischemic colitis. Given the history of C. difficile infection I wonder if this is C. difficile associated colitis or ischemic colitis. For the present time we would recommend a 14-day course of vancomycin and follow-up upper endoscopy and colonoscopy in 3 months. With regard to the small ulcer in the stomach would suggest a course of omeprazole 20 mg/day. Subjective Pt was seen and evaluated, chart reviewed. Denies abd pain. Tolerating PO. Denies nausea, vomiting. Bowels moved last evening. Soft stool. No black or bloody stools. No fever, chils, CP, SOB. c.diff toxin positive, started on vancomycin EGD: notable for small superficial ulceration in the gastric cardia Colonoscopy: notable for diffuse inflammatory changes and ulceration of the left colon. Review of Systems Review of Systems: All systems reviewed & are unremarkable except as noted in HPI & below Physical Exam Constitutional: WD/WN, vitals as above Neck: trachea midline, no thyromegaly Respiratory: normal respiratory effort, lungs clear to auscultation Cardiovascular: Rate/Rhythm: regular rate and regular rhythm Gastrointestinal (Abdomen): normal bowel sounds, soft, nontender, no hepatosplenomegaly Skin: no rashes, warm and dry Results & Data ([facility]) Vital Signs (Past 12 Hours) Vital Signs Temp Pulse Pulse Resp BP BP Pulse Ox 12/20/21 07:08 36.4 C L 70 19 151/72 H 92 12/20/21 06:08 60 12/20/21 02:50 36.6 C 67 18 123/60 92 12/20/21 02:21 36.5 C 67 18 121/51 L 91 12/20/21 01:21 36.7 C 69 18 145/74 H 94 12/20/21 00:51 36.8 C 63 18 131/65 90 12/20/21 00:38 36.7 C 65 18 138/69 94 12/20/21 00:17 36.4 C L 65 20 122/55 L 92 12/19/21 23:45 36.8 C 76 18 134/72 93 12/19/21 22:52 75 Laboratory Results 12/20/21 12/20/21 12/19/21 Range/Units 06:16 06:16 22:25 WBC 6.38 (4.8-10.8) K/uL RBC 2.54 L (4.7-6.1) M/uL Hgb 7.7 L 6.7 L* (14.0-18.0) g/dL Hct 23.4 L 20.9 L* (42-52) % MCV 92.1 (80-100) fL MCH 30.3 (25-34) pg MCHC 32.9 (32-36) g/dL RDW Std Deviation 61.6 H (36.4-46.3) fL RDW Coeff of Jong 18.6 H (11.5-14.5) % Plt Count 161 (130-400) K/uL MPV 10.3 (7.4-10.4) fL Sodium 141 (136-145) mmol/L Potassium 3.8 (3.5-5.1) mmol/L Chloride 116 H (98-107) mmol/L Carbon Dioxide 20 L (21-32) mmol/L Anion Gap 5 (3-11) BUN 31 H (6-23) mg/dl Creatinine 1.41 H (0.6-1.4) mg/dl Est Cr Clr Drug Dosing 43.8 ml/min Est GFR ( Amer) 54.9 ml/min Est GFR (Non-Af Amer) 47.4 ml/min BUN/Creatinine Ratio 22.0 H (10-20) Glucose 91 (70-99(Fasting)) mg/dl Calcium 8.6 (8.5-10.1) mg/dl Stool Leukocyte Stl C. diff Tox B Gene (Neg) Stool H. pylori Ag Stl Shiga Toxins (EIA) Campylobacter Antigen Salmonella/Shigella Blood Type Antibody Screen Crossmatch 12/19/21 12/19/21 12/19/21 Range/Units 15:55 10:35 10:35 WBC 9.74 8.45 (4.8-10.8) K/uL RBC 2.63 L 2.46 L (4.7-6.1) M/uL Hgb 7.7 L 7.2 L (14.0-18.0) g/dL Hct 23.9 L 22.5 L (42-52) % MCV 90.9 91.5 (80-100) fL MCH 29.3 29.3 (25-34) pg MCHC 32.2 32.0 (32-36) g/dL RDW Std Deviation 63.4 H 62.9 H (36.4-46.3) fL RDW Coeff of Jong 19.9 H 19.4 H (11.5-14.5) % Plt Count 175 137 (130-400) K/uL MPV 10.3 9.3 (7.4-10.4) fL Sodium 144 (136-145) mmol/L Potassium 3.5 (3.5-5.1) mmol/L Chloride 115 H (98-107) mmol/L Carbon Dioxide 23 (21-32) mmol/L Anion Gap 6 (3-11) BUN 33 H D (6-23) mg/dl Creatinine 1.42 H (0.6-1.4) mg/dl Est Cr Clr Drug Dosing 43.4 ml/min Est GFR ( Amer) 54.4 ml/min Est GFR (Non-Af Amer) 47.0 ml/min BUN/Creatinine Ratio 23.2 H (10-20) Glucose 91 (70-99(Fasting)) mg/dl Calcium 8.5 (8.5-10.1) mg/dl Stool Leukocyte Stl C. diff Tox B Gene (Neg) Stool H. pylori Ag Stl Shiga Toxins (EIA) Campylobacter Antigen Salmonella/Shigella Blood Type Antibody Screen Crossmatch 12/19/21 12/19/21 12/19/21 Range/Units 09:15 09:15 09:15 WBC (4.8-10.8) K/uL RBC (4.7-6.1) M/uL Hgb (14.0-18.0) g/dL Hct (42-52) % MCV (80-100) fL MCH (25-34) pg MCHC (32-36) g/dL RDW Std Deviation (36.4-46.3) fL RDW Coeff of Jong (11.5-14.5) % Plt Count (130-400) K/uL MPV (7.4-10.4) fL Sodium (136-145) mmol/L Potassium (3.5-5.1) mmol/L Chloride (98-107) mmol/L Carbon Dioxide (21-32) mmol/L Anion Gap (3-11) BUN (6-23) mg/dl Creatinine (0.6-1.4) mg/dl Est Cr Clr Drug Dosing ml/min Est GFR ( Amer) ml/min Est GFR (Non-Af Amer) ml/min BUN/Creatinine Ratio (10-20) Glucose (70-99(Fasting)) mg/dl Calcium (8.5-10.1) mg/dl Stool Leukocyte Pending Stl C. diff Tox B Gene Negative Cdiff Gene (Neg) Stool H. pylori Ag Pending Stl Shiga Toxins (EIA) Pending Campylobacter Antigen Pending Salmonella/Shigella Pending Blood Type Antibody Screen Crossmatch 12/17/21 Range/Units 23:35 WBC (4.8-10.8) K/uL RBC (4.7-6.1) M/uL Hgb (14.0-18.0) g/dL Hct (42-52) % MCV (80-100) fL MCH (25-34) pg MCHC (32-36) g/dL RDW Std Deviation (36.4-46.3) fL RDW Coeff of Jong (11.5-14.5) % Plt Count (130-400) K/uL MPV (7.4-10.4) fL Sodium (136-145) mmol/L Potassium (3.5-5.1) mmol/L Chloride (98-107) mmol/L Carbon Dioxide (21-32) mmol/L Anion Gap (3-11) BUN (6-23) mg/dl Creatinine (0.6-1.4) mg/dl Est Cr Clr Drug Dosing ml/min Est GFR ( Amer) ml/min Est GFR (Non-Af Amer) ml/min BUN/Creatinine Ratio (10-20) Glucose (70-99(Fasting)) mg/dl Calcium (8.5-10.1) mg/dl Stool Leukocyte Stl C. diff Tox B Gene (Neg) Stool H. pylori Ag Stl Shiga Toxins (EIA) Campylobacter Antigen Salmonella/Shigella Blood Type A Positive Antibody Screen NEGATIVE Crossmatch See Detail
[2021-12-20] MEDS: amLODIPine BESYLATE 5 MG TAB PO SCH (09:12)
[2021-12-20] MEDS: PANTOprazole 40 MG TAB PO SCH (09:13)
[2021-12-20] MEDS: gemfibroziL 600 MG TAB PO SCH ×2 (09:13→19:51)
[2021-12-20] MEDS: FINASTERIDE 5 MG TAB PO SCH (09:13)
[2021-12-20] MEDS: ROSUVASTATIN CALCIUM 20 MG TAB PO SCH (09:14)
[2021-12-20] MEDS: ATENOLOL 25 MG TABLET PO SCH (09:14)
[2021-12-20] MEDS: FERROUS SULFATE 325 MG TAB PO SCH (09:14)
[2021-12-20] MEDS: ASPIRIN 81 MG ECTAB PO SCH (09:14)
[2021-12-20] MEDS: CLOPIDOGREL BISULFATE 75 MG TAB PO SCH (09:14)
[2021-12-20] MEDS: SUCRALFATE 1 GM/10 ML UDC PO SCH ×4 (09:15→19:50)
--- NOTE | 2021-12-20 12:10 | Hospitalist Progress Note ---
Date of Service December 20, 2021 Assessment & Plan (1) Acute GI bleeding: (2) Syncope: (3) C. difficile colitis: (4) Acute blood loss anemia: Plan: Patient presented with syncope and was having brown-colored stool in the ER. Hemoglobin was 5.9 on presentation and got 2 units of blood on presentation Patient had EGD and colonoscopy today. EGD showed normal esophagus, nonobstructing nonbleeding gastric ulcer. Colonoscopy showed segmental severe inflammation in the rectum and sigmoid colon, descending colon normal splenic flexure suggestive of ischemic colitis or c diff colitis Yesterday, I discussed with gastroenterology who recommend continuing PPI daily for 2 weeks and to add Carafate 1 g 4 times daily. Patient C. difficile test was positive and in view of inflammation noted on colonoscopy, will treat to C. difficile colitis. Patient already on p.o. van comycin. Continue this for 2 weeks Customer Resolution Specialist recommend resuming home ASA and plavix in view of possible ischemic colitis Got 1 PRBC overnight - Total 3 so far Hb is 7.7 this morning Continue to monitor hemoglobin. Transfuse as needed to keep hemoglobin above 7. (5) Chronic kidney disease: Plan: Cr is 1.42 Avoid nephrotoxins (6) Atherosclerotic coronary vascular disease: Plan: S/p stents PVD Resume aspirin and plavix as above Continue rosuvastatin Plan: In view of urinary symptoms this morning, will get UA UA on admission was unremarkable. Hold off antibiotics for now Updated Admission and Anticipated Discharge Date Admission Date: December 18, 2021 Subjective Patient seen and examined Patient reports feeling fine Denied any nausea, vomiting, abd pain Denied any chest pain, palpitation Denied cough, shortness of breath Denied fever, chills Got 1 pRBC overnight Reported some initial dysuria on urinating this morning. RN reported urine was clear but with a few drops of terminal bloody urine. RN reported BM this AM was liquid brown. Physical Exam Constitutional: + well hydrated; no acute distress Eyes: PERRL, conjunctivae normal, anicteric sclerae ENMT: external ear and nose normal, oropharynx normal Respiratory: normal respiratory effort, lungs clear to auscultation Cardiovascular: Rate/Rhythm: regular rate and regular rhythm S1 S2 Gastrointestinal (Abdomen): normal bowel sounds, soft, nontender, no hepatosplenomegaly Musculoskeletal: No pedal edema Neurologic: PERRL, EOMI, accommodation nl, no face palsy, no dysarthria Genitourinary: No CVA tenderness Results & Data Results & Data ([facility]) Vital Signs (Past 12 Hours) Vital Signs Temp Pulse Pulse Resp BP BP Pulse Ox 12/20/21 11:18 36.8 C 64 18 149/55 H 96 12/20/21 07:08 36.4 C L 70 19 151/72 H 92 12/20/21 06:08 60 12/20/21 02:50 36.6 C 67 18 123/60 92 12/20/21 02:21 36.5 C 67 18 121/51 L 91 12/20/21 01:21 36.7 C 69 18 145/74 H 94 12/20/21 00:51 36.8 C 63 18 131/65 90 12/20/21 00:38 36.7 C 65 18 138/69 94 12/20/21 00:17 36.4 C L 65 20 122/55 L 92 Laboratory Results Abnormal lab results 12/17/21 12/19/21 12/19/21 Range/Units 23:35 15:55 22:25 RBC 2.63 L (4.7-6.1) M/uL Hgb 7.7 L 6.7 L* (14.0-18.0) g/dL Hct 23.9 L 20.9 L* (42-52) % RDW Std Deviation 63.4 H (36.4-46.3) fL RDW Coeff of Jong 19.9 H (11.5-14.5) % Chloride (98-107) mmol/L Carbon Dioxide (21-32) mmol/L BUN (6-23) mg/dl Creatinine (0.6-1.4) mg/dl BUN/Creatinine Ratio (10-20) Crossmatch See Detail 12/20/21 12/20/21 Range/Units 06:16 06:16 RBC 2.54 L (4.7-6.1) M/uL Hgb 7.7 L (14.0-18.0) g/dL Hct 23.4 L (42-52) % RDW Std Deviation 61.6 H (36.4-46.3) fL RDW Coeff of Jong 18.6 H (11.5-14.5) % Chloride 116 H (98-107) mmol/L Carbon Dioxide 20 L (21-32) mmol/L BUN 31 H (6-23) mg/dl Creatinine 1.41 H (0.6-1.4) mg/dl BUN/Creatinine Ratio 22.0 H (10-20) Crossmatch (1) Syncope Syncope type: unspecified Qualified Code(s): R55 - Syncope and collapse
[2021-12-20 13:12] LABS: Appearance Urine Clear (Clear); Bacteria Urine Automated Negative (Negative); Bilirubin Urine Negative (Negative); Blood Urine 1+ (Negative); Cast Urine Automated 0 /lpf (0-5); Color Urine Yellow; Glucose Urine UA Negative (Negative); Ketones Urine Negative (Negative); Leukocyte Esterase Urine Negative (Negative); Nitrite Urine Negative (Negative); Protein Urine Negative (Negative); Specific Gravity Urine 1.016 (1.000-1.030); Urobilinogen Urine Negative (Negative); WBC Urine Automated 0 /hpf (0-5); pH Urine 6.5 (4.5-7.5)
[2021-12-20 14:37] LABS: Hematocrit (blood only) 25.4 % (42-52); Hemoglobin 8.2 g/dL (14.0-18.0)
[2021-12-21] MEDS: RASPBERRY SYRUP 5 ML UDP PO SCH ×4 (05:42→23:10)
[2021-12-21] MEDS: VANCOMYCIN HCL 125 MG/2.5ML SOLN PO SCH ×4 (05:42→23:10)
[2021-12-21] MEDS: BUDESONIDE 0.5 MG/2 ML VIAL (PULMICORT) INH SCH (07:34)
[2021-12-21 07:52] LABS: Hematocrit (blood only) 27.2 % (42-52); Hemoglobin 8.8 g/dL (14.0-18.0); Mean Corpuscular Hgb Conc 32.4 g/dL (32-36); Mean Corpuscular Volume 92.8 fL (80-100); Mean Platelet Volume 10.4 fL (7.4-10.4); Platelet Count 200 K/uL (130-400); RDW Coefficient of Variation 18.3 % (11.5-14.5); RDW Standard Deviation 60.6 fL (36.4-46.3); Red Blood Count 2.93 M/uL (4.7-6.1); White Blood Count 6.03 K/uL (4.8-10.8)
[2021-12-21 08:18] LABS: BUN Creatinine Ratio 17.2 (10-20); Calcium 8.7 mg/dl (8.5-10.1); Creatinine Clr Calc Pharmacy 40.8 ml/min; Est GFR (African American) 50.5 ml/min; Est GFR (Non-African American) 43.6 ml/min; Potassium 3.8 mmol/L (3.5-5.1)
[2021-12-21] MEDS: PANTOprazole 40 MG TAB PO SCH (09:16)
[2021-12-21] MEDS: FINASTERIDE 5 MG TAB PO SCH (09:16)
[2021-12-21] MEDS: ATENOLOL 25 MG TABLET PO SCH (09:16)
[2021-12-21] MEDS: ROSUVASTATIN CALCIUM 20 MG TAB PO SCH (09:16)
[2021-12-21] MEDS: gemfibroziL 600 MG TAB PO SCH ×2 (09:16→20:03)
[2021-12-21] MEDS: SUCRALFATE 1 GM/10 ML UDC PO SCH ×4 (09:16→20:04)
[2021-12-21] MEDS: CLOPIDOGREL BISULFATE 75 MG TAB PO SCH (09:16)
[2021-12-21] MEDS: amLODIPine BESYLATE 5 MG TAB PO SCH (09:17)
[2021-12-21] MEDS: ASPIRIN 81 MG ECTAB PO SCH (09:17)
[2021-12-21 14:17] LABS: Hematocrit (blood only) 25.9 % (42-52); Hemoglobin 8.4 g/dL (14.0-18.0)
--- NOTE | 2021-12-21 18:21 | Hospitalist Progress Note ---
Date of Service December 21, 2021 Assessment & Plan (1) Acute GI bleeding: (2) Syncope: (3) C. difficile colitis: (4) Acute blood loss anemia: Plan: Patient presented with syncope and was having brown-colored stool in the ER. Acute GI bleed Acute blood loss anemia C. difficile/Ischemic colitis --S/P PRBCs --S/P EGD:Non-obstructing non-bleeding gastric ulcer with no stigmata of bleeding. --S/P Colonoscopy:Hemorrhoids found on perianal exam. The examined portion of the ileum was normal. The transverse colon, hepatic flexure, ascending colon and cecum are normal. Segmental severe inflammation was found in the rectum, in the sigmoid colon, in the descending colon and at the splenic flexure secondary to ischemic colitis or C diff colitis. Biopsied. Fluid aspiration performed. --Pathology:Changes consistent with ischemic colitis Appreciate GI input Avoid NSAIDs Continue PPI daily Continue Carafate 1 g 4 times a day for 2 weeks Continue vancomycin for 2 weeks Will need repeat upper endoscopy and colonoscopy in 3 to 4 months Needs follow-up with GI upon discharge Monitor CBC Okay to resume aspirin, Plavix as per GI given h/o PAD, CAD Hb 8.4 today (5) Chronic kidney disease: Plan: Cr at baseline Avoid nephrotoxins Monitor (6) Atherosclerotic coronary vascular disease: Plan: S/p stents PVD Continue aspirin, plavix, rosuvastatin Plan: DVT Px: SCDs Code Status Full Code Disposition PT/OT prior to discharge Admission and Anticipated Discharge Date Admission Date: December 18, 2021 Subjective Patient is seen and examined at bedside Offers no new complaints today Hemoglobin stable Discussed with patient's over the phone Denies any diarrhea, abdominal pain, chest pain, shortness of breath, dizziness, nausea Review of Systems Review of Systems: All systems reviewed & are unremarkable except as noted in Subjective Physical Exam Physical Exam: Physical Exam: Vitals signs as noted above General Appearance:Moderately built and nourished, no apparent distress Head: normocephalic, Atraumatic Eyes: normal inspection, EOMI Neck: supple, Trachea midline Respiratory/Chest: Normal breath sounds, CTA, No accessory muscle use Cardiovascular: S1, S2, No murmur Abdomen/GI:Soft, Non tender, Bowel sounds present Extremities/Musculoskeletal:normal inspection, no edema Neurologic/Psych:AAO, grossly no focal neurological deficits Skin: normal color, warm Results & Data Results & Data ([facility]) Vital Signs (Past 12 Hours) Vital Signs Temp Pulse Pulse Resp BP Pulse Ox 12/21/21 15:36 36.5 C 70 17 168/94 H 95 12/21/21 15:02 70 12/21/21 11:21 36.4 C L 67 18 188/81 H 97 12/21/21 09:03 72 12/21/21 06:47 36.4 C L 64 18 156/66 H 92 Laboratory Results Short CBC 12/20/21 12/21/21 12/21/21 Range/Units 22:21 07:13 13:55 WBC 6.03 (4.8-10.8) K/uL Hgb 8.0 L 8.8 L 8.4 L (14.0-18.0) g/dL Hct 24.0 L 27.2 L 25.9 L (42-52) % Plt Count 200 (130-400) K/uL BMP 12/21/21 07:13 Sodium 141 Potassium 3.8 Chloride 114 H Carbon Dioxide 20 L BUN 26 H Creatinine 1.51 H Glucose 94 Calcium 8.7 (1) Syncope Syncope type: unspecified Qualified Code(s): R55 - Syncope and collapse
[2021-12-21 22:36] LABS: Hematocrit (blood only) 25.6 % (42-52); Hemoglobin 8.4 g/dL (14.0-18.0)
[2021-12-22] MEDS: VANCOMYCIN HCL 125 MG/2.5ML SOLN PO SCH ×2 (05:04→11:15)
[2021-12-22] MEDS: RASPBERRY SYRUP 5 ML UDP PO SCH ×2 (05:04→11:15)
[2021-12-22] MEDS: gemfibroziL 600 MG TAB PO SCH (09:41)
[2021-12-22] MEDS: amLODIPine BESYLATE 5 MG TAB PO SCH (09:41)
[2021-12-22] MEDS: FERROUS SULFATE 325 MG TAB PO SCH (09:42)
[2021-12-22] MEDS: ATENOLOL 25 MG TABLET PO SCH (09:42)
[2021-12-22] MEDS: ROSUVASTATIN CALCIUM 20 MG TAB PO SCH (09:42)
[2021-12-22] MEDS: PANTOprazole 40 MG TAB PO SCH (09:42)
[2021-12-22] MEDS: ASPIRIN 81 MG ECTAB PO SCH (09:42)
[2021-12-22] MEDS: CLOPIDOGREL BISULFATE 75 MG TAB PO SCH (09:42)
[2021-12-22] MEDS: SUCRALFATE 1 GM/10 ML UDC PO SCH ×2 (09:43→12:31)
[2021-12-22] MEDS: FINASTERIDE 5 MG TAB PO SCH (09:43)
[2021-12-22 11:43] LABS: Hematocrit (blood only) 29.2 % (42-52); Hemoglobin 9.5 g/dL (14.0-18.0)
[2021-12-22 13:09] LABS: BUN Creatinine Ratio 15.3 (10-20); Calcium 9.2 mg/dl (8.5-10.1); Creatinine Clr Calc Pharmacy 46.1 ml/min; Est GFR (Non-African American) 51.8 ml/min; Potassium 3.7 mmol/L (3.5-5.1)
--- NOTE | 2021-12-22 13:53 | Hospitalist Progress Note ---
Date of Service December 22, 2021 Assessment & Plan (1) Acute GI bleeding: (2) Syncope: (3) C. difficile colitis: (4) Acute blood loss anemia: Plan: Patient presented with syncope and was having brown-colored stool in the ER. Acute GI bleed Acute blood loss anemia C. difficile/Ischemic colitis --S/P PRBCs --S/P EGD:Non-obstructing non-bleeding gastric ulcer with no stigmata of bleeding. --S/P Colonoscopy:Hemorrhoids found on perianal exam. The examined portion of the ileum was normal. The transverse colon, hepatic flexure, ascending colon and cecum are normal. Segmental severe inflammation was found in the rectum, in the sigmoid colon, in the descending colon and at the splenic flexure secondary to ischemic colitis or C diff colitis. Biopsied. Fluid aspiration performed. --Pathology:Changes consistent with ischemic colitis Appreciate GI input Avoid NSAIDs Continue PPI daily Continue Carafate 1 g 4 times a day for 2 weeks Continue vancomycin for 2 weeks Will need repeat upper endoscopy and colonoscopy in 3 to 4 months Needs follow-up with GI upon discharge Monitor CBC Okay to resume aspirin, Plavix as per GI given h/o PAD, CAD Hb 9.5 today Plan to discharge home today (5) Chronic kidney disease: Plan: Cr at baseline Avoid nephrotoxins Monitor (6) Atherosclerotic coronary vascular disease: Plan: S/p stents PVD Continue aspirin, plavix, rosuvastatin Plan: DVT Px: SCDs Code Status Full Code Disposition Plan to discharge home today Admission and Anticipated Discharge Date Admission Date: December 18, 2021 Subjective Patient is seen and examined at bedside States feeling well No new complaints Denies any bleeding issues Hemoglobin stable 9.5 today Discussed with patient's over the phone Also denies any diarrhea, abdominal pain, chest pain, shortness of breath, dizziness, nausea Review of Systems Review of Systems: All systems reviewed & are unremarkable except as noted in Subjective Physical Exam Physical Exam: Physical Exam: Vitals signs as noted above General Appearance:Moderately built and nourished, no apparent distress Head: normocephalic, Atraumatic Eyes: normal inspection, EOMI Neck: supple, Trachea midline Respiratory/Chest: Normal breath sounds, CTA, No accessory muscle use Cardiovascular: S1, S2, No murmur Abdomen/GI:Soft, Non tender, Bowel sounds present Extremities/Musculoskeletal:normal inspection, no edema Neurologic/Psych:AAO, grossly no focal neurological deficits Skin: normal color, warm Results & Data Results & Data ([facility]) Vital Signs (Past 12 Hours) Vital Signs Temp Pulse Pulse Resp BP Pulse Ox 12/22/21 11:37 36.5 C 54 L 20 169/64 H 97 12/22/21 08:03 58 L 18 95 12/22/21 08:00 85 12/22/21 04:08 36.8 C 62 18 164/72 H 95 Laboratory Results Short CBC 12/21/21 12/21/21 12/22/21 Range/Units 13:55 22:03 11:22 Hgb 8.4 L 8.4 L 9.5 L (14.0-18.0) g/dL Hct 25.9 L 25.6 L 29.2 L (42-52) % BMP 12/22/21 11:22 Sodium 142 Potassium 3.7 Chloride 112 H Carbon Dioxide 22 BUN 20 Creatinine 1.31 Glucose 101 H Calcium 9.2 (1) Syncope Syncope type: unspecified Qualified Code(s): R55 - Syncope and collapse
--- NOTE | 2021-12-22 14:04 | Discharge Summary ---
Date of Service December 22, 2021 Admission HPI Per Admitting Provider CHIEF COMPLAINT: Syncope. GI bleed. 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 The patient was recently in the hospital in November 04 with syncope at that time after iron infusion. 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 He received 3 units of PRBC scans and he also had bleeding scan, which showed small nonfocal radiotracer uptake within the right mid pelvis and was transferred to [facility] for device assisted enteroscopy. At that time, cultures also grew Streptococcus salivarius and Streptococcus viridans blood cultures and was on antibiotics. At [facility] no procedure was done as his bleeding stopped and he was advised for 2 weeks of IV Rocephin. His strep culture bacteremia was thought to be from dental care or translocated from the GI. Patient again today he was sleeping in the bed and he became pale and his tried to wake him up, he passed out for 1-2 minutes, then she assisted him to go to bathroom. He had another episode and passed out and EMS came and brought him here. As per the , first time when he passed out when he woke up, he was not confused, on second time he was slightly confused, but when he was in the stretcher seemed to come back to normal.In the ER, he is also having maroon-colored stools and diarrhea and abdominal pain. Hemoglobin was 5.9. 2 units of PRBCs ordered in the ER. Hemodynamically stable. Denies any headache. Complains of some dizziness. No blurred visions, no earache, no runny nose, no sore throat, no cough, no chest pain, no shortness of breath, no nausea or vomiting. Having severe abdominal pain and diarrhea currently, normal bladder movements. No swelling in the legs.As per bee recently PCP started on Doxycycline for possib le touch of pneumonia. Admission Exam Per Admitting Provider PHYSICAL EXAMINATION: GENERAL: The patient is alert, oriented, not in acute distress. VITAL SIGNS: Temperature 36.7, pulse 80, respiratory rate 18, blood pressure 136/73, and oxygen 98% on room air. HEENT: Pupils equal, round and reactive to light. Oral mucosa moist. NECK: No JVD, no neck masses. CARDIOVASCULAR: S1 and S2 heard. Regular rate and rhythm. No murmur, no gallop. RESPIRATORY SYSTEM: Normal AP diameter. No accessory muscle use. No wheezing, no crackles. ABDOMEN: Soft, bowel sounds present. Mild diffuse discomfort, no guarding, no rigidity, no distention. CENTRAL NERVOUS SYSTEM: Cranial nerves II through XII are grossly intact, nonfocal. EXTREMITIES: No edema, no erythema. Principal Diagnosis Acute gastrointestinal bleeding Acute blood loss anemia C. difficile/Ischemic colitis Discharge Data Allergies Allergy/AdvReac Type Severity Reaction Status Date / Time amoxicillin Allergy Intermediate Rash Verified 12/19/21 08:33 linezolid AdvReac Intermediate DIZZINESS, Verified 12/19/21 08:33 CHEST PAIN AFTER 4TH DOSE. Sulfa (Sulfonamide AdvReac Intermediate Hives Verified 12/19/21 08:33 Antibiotics) Consultations 12/18/21 00:40 ED Decision to Admit Stat 12/18/21 08:00 Consult Gastroenterology Routine Procedures Performed Operation Date: 12/19/21 16:30 Actual Procedures p Esophagogastroduodenoscopy - Jenny Thibodeaux DO s Colonoscopy Biopsy Cytology - Jenny Thibodeaux DO Operation Date: 12/19/21 16:45 <No data on this case meets the specified criteria> Ordered Studies 12/17/21 23:29 CT angio abdomen pelvis w con Urgent Hospital Course (1) Acute GI bleeding: (2) Syncope: (3) C. difficile colitis: (4) Acute blood loss anemia: Patient presented with syncope and was having brown-colored stool in the ER. Acute GI bleed Acute blood loss anemia C. difficile/Ischemic colitis --S/P PRBCs --S/P EGD:Non-obstructing non-bleeding gastric ulcer with no stigmata of bleeding. --S/P Colonoscopy:Hemorrhoids found on perianal exam. The examined portion of the ileum was normal. The transverse colon, hepatic flexure, ascending colon and cecum are normal. Segmental severe inflammation was found in the rectum, in the sigmoid colon, in the descending colon and at the splenic flexure secondary to ischemic colitis or C diff colitis. Biopsied. Fluid aspiration performed. --Pathology:Changes consistent with ischemic colitis Appreciate GI input Avoid NSAIDs Continue PPI daily Continue Carafate 1 g 4 times a day for 2 weeks Continue vancomycin for 2 weeks Will need repeat upper endoscopy and colonoscopy in 3 to 4 months Needs follow-up with GI upon discharge Monitor CBC Okay to resume aspirin, Plavix as per GI given h/o PAD, CAD Hb 9.5 today Plan to discharge home today (5) Chronic kidney disease: Cr at baseline Avoid nephrotoxins Monitor (6) Atherosclerotic coronary vascular disease: S/p stents PVD Continue aspirin, plavix, rosuvastatin DVT Px: SCDs Code Status Full Code Disposition Plan to discharge home today Total Time Total Time Spent Total Time Spent (In Minutes): 48 minutes Discharge Plan Discharge Items Patient Disposition: Home - Self-Care Reason For Visit: SYNCOPE Discharge Diagnosis: Acute gastrointestinal bleeding Acute blood loss anemia C. difficile/Ischemic colitis Activity: Per Instructions section Exercise/Sports: Gradually increase as tolerated Non-emergency contact: Primary Care Provider and Insurance Verifier Call non-emergency contact if: you have any medication questions, your symptoms worsen, your pain is concerning for you and you have a fever Follow-up/Referrals: Jelani Wallace, DO [Primary Care Provider] - Diet: Heart Healthy Addtl Attending Provider Instructions: Follow-up with your primary care physician Dr. Jelani Wallace in 1 week Follow-up with your cupola liner in 3-4 weeks --Get repeat Colonoscopy and endoscopy in 3 to 4 months as advised by your cupola liner. Seek immediate medical attention if your symptoms reoccur or worsen Please take all medications as instructed on discharge list below. Please call if you have any questions or problems. You can reach a [facility] hospitalist on duty at [facility] 24 hours a day by calling [phone] Pending Studies at Discharge: No Stand-Alone Forms: My [facility] [employer], Smoking Cessation Medications and DC Order Prescriptions: New sucralfate [Carafate] 1 gram tablet 1 g PO QID 14 Days Qty: 56 RF: 0 vancomycin [Vancocin] 125 mg capsule 125 mg PO QID 14 Days Qty: 56 RF: 0 Continued finasteride 5 mg tablet 5 mg PO DAILY Qty: 30 RF: 5 atenolol 25 mg Tablet 25 mg PO DAILY RF: 0 gemfibrozil 600 mg Tablet 600 mg PO BID RF: 0 rosuvastatin 20 mg Tablet 20 mg PO DAILY RF: 0 omega 7-lge-tba-fish oil [Fish Oil] 1,200 (144-216) mg Capsule 2 cap PO DAILY RF: 0 multivitamin Tablet 1 tab PO DAILY RF: 0 amlodipine 2.5 mg tablet 2.5 mg PO DAILY RF: 0 omeprazole 20 mg capsule,delayed release(DR/EC) 20 mg PO QAM RF: 0 clopidogrel 75 mg tablet 75 mg PO DAILY RF: 0 aspirin 81 mg Tablet,Delayed Release (Dr/Ec) 81 mg PO DAILY RF: 0 ipratropium-albuterol [DuoNeb] 0.5 mg-3 mg(2.5 mg base)/3 mL Solution For Nebulization 3 ml INHALATION Q4H PRN (Reason: Dyspnea) RF: 0 ferrous sulfate 325 mg (65 mg iron) tablet 325 mg PO Q OTHER DAY RF: 0 budesonide [Pulmicort] 1 mg/2 mL Suspension For Nebulization 1 mg INHALATION DAILY RF: 0 Discontinued doxycycline hyclate 100 mg capsule 100 mg PO BID 10 Days Qty: 20 RF: 0 Discharge Orders: Discharge Order (Routine); Ordered 12/22/21 Ordered By: Mateo Royal Admission Data Admit Date/Time: 12/18/21 04:20 Attending Provider: Mateo Royal Admit Provider: Tiburcio Garcia Primary Care Provider: Jelani Wallace Other Providers: Tiburcio Garcia ; Jeff Calle ; Margarita Donaldson ; Alis Arthur ; Lisa Muller ; Vadim Nichols ; Jenny Thibodeaux ; Zaire Khalil ; Akbar Gould ; Pricila Fay ; Lani Griffin ; Brianne Patel ; Jill Barr ; Alex Mendoza Other Interventions: Discharge Summary Assessment (RN) Last Done: 12/19/21 10:04
== END 2021-12-22 15:00 | disposition home or self-care (01) | DRG 371 ==
LOC: ED 22:12 → 2S 12-18 03:55 → SUATTDRO 12-18 04:20 → 2S 12-18 04:20
DX: E78.5 Hyperlipidemia, unspecified; Z79.02 Long term (current) use of antithrombotics/antiplatelets; Z20.822 Contact with and (suspected) exposure to COVID-19; Z95.5 Presence of coronary angioplasty implant and graft; Z87.891 Personal history of nicotine dependence; I70.1 Atherosclerosis of renal artery; G90.9 Disorder of the autonomic nervous system, unspecified; I25.10 Atherosclerotic heart disease of native coronary artery without angina pectoris; Z88.2 Allergy status to sulfonamides; A04.72 Enterocolitis due to Clostridium difficile, not specified as recurrent; I71.4 Abdominal aortic aneurysm, without rupture; Z79.4 Long term (current) use of insulin; Z88.1 Allergy status to other antibiotic agents; K55.9 Vascular disorder of intestine, unspecified; K25.9 Gastric ulcer, unspecified as acute or chronic, without hemorrhage or perforation; D62 Acute posthemorrhagic anemia; N18.32 Chronic kidney disease, stage 3b; J18.9 Pneumonia, unspecified organism; Z99.81 Dependence on supplemental oxygen; R41.0 Disorientation, unspecified; I12.9 Hypertensive chronic kidney disease with stage 1 through stage 4 chronic kidney disease, or unspecified chronic kidney disease; I73.9 Peripheral vascular disease, unspecified; Z79.899 Other long term (current) drug therapy; Z88.0 Allergy status to penicillin

== ENCOUNTER 2024-05-14 16:50 | Inpatient (IN) ==
--- NOTE | 2024-05-14 17:06 | ED Triage Note ---
Date of Service May 14, 2024 Provider in Triage Author: Debo Zaldivar History of Present Illness This patient was briefly evaluated while in triage. An abbreviated physical exam was performed. This patient is a 79-year-old Male who presents to the ED for evaluation of a possible UTI. His states that he has been confused since last night before bed. She states that this has happened twice before and both times he had a UTI. He did have a slightly elevated temperature of 99.4 Fahrenheit this morning. Physical Exam GENERAL: Non-toxic and in no acute distress. HEENT: Pupils equal. No obvious scleral icterus. HEART: Regular rate and rhythm. LUNGS: Clear to auscultation. No accessory muscle use. NEURO: Alert and oriented. No obvious neurological deficits on quick neuro exam. Initial orders for labs and / or imaging were placed and patient was placed in the waiting area until a bed is available. Please see further documentation for the full ED course. MDM / Impression Impression Impression: Acute confusion, Generalized weakness, COVID-19
--- NOTE | 2024-05-14 17:31 | CT Scan Report ---
CT head/brain wo con CLINICAL HISTORY: confusion Technique: Contiguous axial CT images of the head were acquired from the base of the skull to the nneka iris without intravenous contrast administration. Images were viewed in brain, subdural and bone [facility]. Automated dose lowering techniques and/or adjustment according to patient size were utilized for this exam. Comparison: Comparison is made to CTA head and neck 02/03/2024 Findings: Areas of decreased attenuation are present in the periventricular and subcortical white matter bilate rally consistent with small vessel ischemic disease. Generalized cerebral atrophy with commensurate e nlargement of the ventricles, sulci, and cisterns is also present. There is no acute intracranial hem orrhage or evidence of acute territorial infarction. No shift of the midline structures, mass effect, or extra-axial abnormalities are shown. Atherosclerotic calcifications are present in the intracran ial segments of the internal carotid arteries. Imaged portions of the paranasal sinuses and mastoid air cells are clear. The orbits appear normal. There are no acute fractures of the calvaria or scalp swelling. Impression: No acute intracranial hemorrhage, no evidence of acute territorial infarction or other acute intracra nial disease process. ACT 112: Negative or not required by law. Electronically signed by: Jose Carlos Duron M.D. 05/14/2024 5:29 PM
[2024-05-14 17:38] LABS: Basophils # (auto) 0.01 K/uL (0.00-0.20); Basophils % (auto) 0.1 %; Hematocrit (blood only) 40.5 % (42.0-52.0); Immature Granulocytes # (auto) 0.02 K/uL (0.01-0.20); Immature Granulocytes % (auto) 0.3 %; Lymphocytes # (auto) 0.56 K/uL (1.20-3.40); Lymphocytes % (auto) 7.5 %; Mean Corpuscular Hemoglobin 30.3 pg (25.0-34.0); Mean Corpuscular Hgb Conc 34.6 g/dL (32.0-36.0); Mean Corpuscular Volume 87.7 fL (80.0-100.0); Mean Platelet Volume 10.1 fL (9.4-12.4); Monocytes % (auto) 13.3 %; Neutrophils # (auto) 5.91 K/uL (1.40-6.50); Neutrophils % (auto) 78.8 %; Platelet Count 127 K/uL (130-400); RDW Coefficient of Variation 13.7 % (11.5-14.5); RDW Standard Deviation 43.5 fL (36.4-46.3); Red Blood Count 4.62 M/uL (4.70-6.10)
[2024-05-14 17:41] LABS: Alanine Aminotransferase 19 U/L (7-52); Albumin Globulin Ratio 1.8 (0.9-2); Albumin Level 4.6 gm/dl (3.4-5.0); Alkaline Phosphatase 83 U/L (34-104); Anion Gap 9 (3-11); Aspartate Aminotransferase 23 U/L (13-39); BUN Creatinine Ratio 17.3 (10-20); Blood Urea Nitrogen 29 mg/dl (6-23); Calcium 9.7 mg/dl (8.6-10.3); Carbon Dioxide 24 mmol/L (21-32); Chloride 107 mmol/L (98-107); Globulin 2.5 gm/dl (2.5-4.0); Glucose 108 mg/dl (70-99(Fasting)); Sodium 140 mmol/L (136-145); Total Protein 7.1 gm/dl (6.0-8.3)
--- NOTE | 2024-05-14 18:11 | Emergency Department Note ---
Impression & Plan Acute confusion, Generalized weakness, COVID-19 ED Provider Note ED Provider Note NAME: KAREEM HUMPHREY AGE:79 SEX: Male : 1945 ARRIVES VIA: Private vehicle INFORMANT: Patient ED PROVIDER(s): Tania Ureña DO CHIEF COMPLAINT: Increased confusion, weakness, possible UTI HPI: This is an 79-year-old male presents emergency department due to concern for possible UTI. at bedside states that he refused dinner last night and appeared slightly unsteady. She states due to concern for recurrent UTIs as he has had similar symptoms previously, she contacted [facility] to inquire about having a urine test done. She states she never got a return call until they were already driving here. She states throughout the day he became more unsteady, weak, and more confused which is similar to his last UTI approximately a year ago. He does have a remote history of kidney stones and does have a history of kidney dysfunction. No other recent change in medications. He does note a cough that began yesterday additionally, no fevers or chills. The patient denies any abdominal pain, back pain, or nausea. She states he had very little to eat today, and she was having a hard time keeping him hydrated. PAST MEDICAL HISTORY:See Below PAST SURGICAL HISTORY:See Below FAMILY HISTORY:See Below SOCIAL HISTORY:See Below HOME MEDICATIONS:See Below ALLERGIES:See Below VITALS:See Below PHYSICAL EXAMINATION: GENERAL: alert, well appearing, well nourished, no distress, non-toxic EYE EXAM: normal conjunctiva, PERRL and EOM's grossly intact OROPHARYNX: no exudate, no erythema, lips, buccal mucosa, and tongue normal and mucous membranes are moist NECK: supple, no nuchal rigidity, no adenopathy, non-tender LUNGS: Clear to auscultation. Normal chest wall mechanics, no w/r/r HEART: no murmurs, S1 normal and S2 normal ABDOMEN: abdomen soft, non-tender, normo-active bowel sounds, no masses, no rebound or guarding. SKIN: no rashes, petechiae, orbruising UPPER EXTREMITIES: upper extremities are grossly normal. FROM, nml pulses b/l. LOWER EXTREMITIES: No pitting edema. FROM, nml pulses b/l. NEURO EXAM: cranial nerves II-XII grossly intact, normal speech, no facial droop,nogross weakness of arms, no gross weakness of legs. Gross sensation intact. No ataxia. Tremulous. Vital Signs: reviewed and remarkable Differential Diagnosis: UTI, urinary retention, bladder stone, pyelonephritis, HARLAN, dehydration, medication ADR, as well as others were considered MEDICAL DECISION MAKING: This is an 79-year-old male brought in by due to concern for confusion, decreased appetite, increased fatigue, and possible recurrent UTI which has previously caused similar symptoms. He was afebrile vital signs stable on arrival. Labs drawn and sent, IV established, chest ray performed at bedside interpreted me and patient monitored on telemetry. Urine collected and sent additionally. Urine negative, chest x-ray without any obvious infection despite also noting a cough that began today. Labs reassuring. After further discussion and repeat evaluation at bedside, a BioFire was added. This ultimately revealed COVID. I suspect this is more likely the reason for his weakness, fatigue, confusion, decreased appetite. Case discussed with the hospitalist for additional evaluation and management. While awaiting hospitalist evaluation, patient did become hypoxic and was started on oxygen via nasal cannula. The hospitalist was updated. Patient's updated at bedside additionally. Consultation(s): 2001: Discussed with Dr. Garcia, [facility] hospitalist team, for additional evaluation and management. ER Treatment Provided: See below 2044: While awaiting hospitalist evaluation patient became hypoxic at 88%. He was started on oxygen via nasal cannula. Diagnostics Interpreted By Me: -Cardiac Monitoring: An order was placed for continuous cardiac monitoring. The monitor shows a rate of 78 with normal sinus rhythm. -Laboratory studies: As stated above and show below. -Imaging studies: X-ray Chest: A single view study of the chest was reviewed and was negative for cardiomegaly, focal infiltrate, effusion, pulmonary edema, or wide mediastinum. Triage Nursing Note Reviewed Prior/Outside Records Reviewed Past Med/Surg History Problem List (Updated 05/14/24 @ 20:05 by Tania Ureña DO) COVID-19 (Acute) Generalized weakness (Acute) Acute confusion (Acute) HTN (hypertension) (Chronic) Hypertensive urgency (Acute 08/10/14) Dyslipidemia (Chronic) History of basal cell carcinoma (Chronic) "R neck 2008" Chest pain (Acute) S/P angioplasty with stent (Chronic) "last procedure 2005. " History of inguinal hernia repair (Chronic 1991) BPH without obstruction/lower urinary tract symptoms Encounter for pre-operative examination Syncope (Acute) Anemia (Acute) HARLAN (acute kidney injury) (Acute) Vomiting (Acute) Abdominal pain (Acute) Dysuria (Acute) Acute urinary retention (Acute) Hypoxia (Acute) Hypotension (Acute) Metabolic acidosis Altered mental state GI bleed Bacteremia Abdominal pain (Acute) ABLA (acute blood loss anemia) (Acute) Acute GI bleeding (Acute) AVM (arteriovenous malformation) Encounter for pre-operative examination C. difficile colitis Acute blood loss anemia Medical History History of blood transfusion Toe ulcer Memory problem Follows neuro/[facility]. Enlarged prostate AAA (abdominal aortic aneurysm) Mild Abdominal aortic aneurysms again noted measuring up to 3.9 cm per 12/17/21 abdomen/pelvis CTA Hx of Clostridium difficile infection 12/2021- resolved Sleep apnea suspected sleep apnea, states he has never had sleep study uses o2 at 2lpm via nc at hs Renal artery stenosis R Anemia hx : Iron deficiency anemia 2/2 chronic blood loss (FOBT positive) s/p EGD/Colonscopy 10/24/21 @ [facility] CAD (coronary artery disease) 2003 (stents x2), 2004 (stents x3), 2005 (stents x 2) -- [facility] [place] - follows w/ Dr Pitt last visit 09/2022 Chronic kidney disease Follows with nephrology ([facility]); CKD 3B Heart failure EF 60-65%, follows with cardiology ([facility]) Peripheral vascular disease Follows with vascular (Dr. Najera) "Atherosclerotic PVD with left leg claudication" History of skin cancer s/p excision High cholesterol Controlled HTN (hypertension) Controlled with meds Labile Atypical chest pain Hx of chronic atypical chest pain x several years. [place] "food related" per spouse. No recent issues/rare occurrences. Atherosclerotic coronary vascular disease "S/p multiple coronary interventions on all 3 coronary vasculatures. last cardiac cath 2005." Surgical History History of esophagogastroduodenoscopy (EGD) History of herniorrhaphy History of foot surgery Toe removal History of colonoscopy Colonoscopy + EGD (10/24/21): @ [facility], History of cardiac cath 2003 (stents x2), 2004 (stents x3), 2005 (stents x 2) Family History Mother Heart disease Hypertension Family history of reaction to anesthesia PONV Social History Smoking Status: Never smoker Tobacco Type: Cigarettes Cigarettes Per Day: quit 2003; Second Hand Exposure: No; Do You Dip or Chew Tobacco: No; Hx Alcohol Use: No Hx Substance Use: No Preferred Language: Nigerien Communication Ability: Effective Communication Ability Comment: PT HX POOR HISOTRIAN FOR MED ? S. PT REQ TO DO PHONE INTERVIEW. 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 monoferric Allergy Severe syncope, Uncoded 05/14/24 20:38 vomiting Home Meds Home Medications Medication Instructions Recorded Confirmed atenolol 25 mg tablet 25 mg PO QAM 05/18/20 05/14/24 omega 6-vda-riu-fish oil 1,200 mg 1 cap PO QAM 05/18/20 05/14/24 (144 mg-216 mg) capsule (Fish Oil) rosuvastatin 20 mg tablet 20 mg PO QAM 05/18/20 05/14/24 multivitamin 0.5 tab PO BID 06/13/21 05/14/24 amlodipine 2.5 mg tablet 2.5 mg PO BID 11/04/21 05/14/24 omeprazole 20 mg capsule,delayed 40 mg PO QAM 11/04/21 05/14/24 release clopidogrel 75 mg tablet 75 mg PO QAM 12/17/21 05/14/24 finasteride 5 mg tablet 5 mg PO QAM 01/03/23 05/14/24 memantine 5 mg tablet 5 mg PO BID 01/03/23 05/14/24 fluorouracil 5 % topical cream 1 applic topical BID PRN FLARE 02/03/24 05/14/24 nitroglycerin 0.4 mg sublingual 0.4 mg sublingual DAILY PRN Chest 02/03/24 05/14/24 tablet Pain Results & Data (ED) Vital Signs Vital Signs - 24 hr 05/14/24 17:03 05/14/24 17:45 05/14/24 17:53 Temperature 37.0 C Temperature Source Temporal Artery Scan Pulse Rate 75 69 Pulse Rate [Left Apical] 73 Respiratory Rate 19 16 22 Respiratory Effort / Characteristics Non-Labored Spontaneous Respiratory Depth Normal Respiratory Pattern Regular Blood Pressure 137/62 Blood Pressure [Right Arm] 163/76 H Blood Pressure Mean 87 Blood Pressure Mean [Right Arm] 105 Pulse Oximetry 92 93 Oxygen Delivery Method Room Air Room Air Sepsis Recent Fever Within 48 Hours Yes Sepsis New/Unexplained Change in Mental Status N/A Sepsis Action Taken by Nursing No Action Required 05/14/24 17:56 05/14/24 18:00 05/14/24 18:02 Temperature Temperature Source Pulse Rate 71 76 Pulse Rate [Left Apical] Respiratory Rate 17 Respiratory Effort / Characteristics Respiratory Depth Respiratory Pattern Blood Pressure 154/75 H Blood Pressure [Right Arm] Blood Pressure Mean 104 Blood Pressure Mean [Right Arm] Pulse Oximetry Oxygen Delivery Method Sepsis Recent Fever Within 48 Hours Sepsis New/Unexplained Change in Mental Status Sepsis Action Taken by Nursing 05/14/24 18:06 05/14/24 18:12 05/14/24 18:34 Temperature Temperature Source Pulse Rate 71 70 Pulse Rate [Left Apical] Respiratory Rate 19 23 Respiratory Effort / Characteristics Respiratory Depth Respiratory Pattern Blood Pressure 164/80 H Blood Pressure [Right Arm] Blood Pressure Mean 103 Blood Pressure Mean [Right Arm] Pulse Oximetry Oxygen Delivery Method Sepsis Recent Fever Within 48 Hours Sepsis New/Unexplained Change in Mental Status Sepsis Action Taken by Nursing 05/14/24 18:39 05/14/24 18:48 05/14/24 19:00 Temperature Temperature Source Pulse Rate 69 67 67 Pulse Rate [Left Apical] Respiratory Rate 15 21 23 Respiratory Effort / Characteristics Respiratory Depth Respiratory Pattern Blood Pressure 167/75 H Blood Pressure [Right Arm] Blood Pressure Mean 105 Blood Pressure Mean [Right Arm] Pulse Oximetry 93 Oxygen Delivery Method Room Air Sepsis Recent Fever Within 48 Hours Sepsis New/Unexplained Change in Mental Status Sepsis Action Taken by Nursing 05/14/24 19:21 Temperature Temperature Source Pulse Rate 70 Pulse Rate [Left Apical] Respiratory Rate 22 Respiratory Effort / Characteristics Respiratory Depth Respiratory Pattern Blood Pressure Blood Pressure [Right Arm] Blood Pressure Mean Blood Pressure Mean [Right Arm] Pulse Oximetry 92 Oxygen Delivery Method Room Air Sepsis Recent Fever Within 48 Hours Sepsis New/Unexplained Change in Mental Status Sepsis Action Taken by Nursing Laboratory Data 05/15/24 05:19 05/15/24 05:19 Lab Results 05/14/24 05/14/24 05/14/24 Range/Units 17:11 18:17 19:15 WBC 7.50 (4.8-10.8) K/ul RBC 4.62 L (4.70-6.10) M/uL Hgb 14.0 (14.0-18.0) g/dl Hct 40.5 L (42.0-52.0) % MCV 87.7 (80.0-100.0) fL MCH 30.3 (25.0-34.0) pg MCHC 34.6 (32.0-36.0) g/dL RDW Std Deviation 43.5 (36.4-46.3) fL RDW Coeff of Jong 13.7 (11.5-14.5) % Plt Count 127 L (130-400) K/uL MPV 10.1 (9.4-12.4) fL Immature Gran % (Auto) 0.3 % Neut % (Auto) 78.8 % Lymph % (Auto) 7.5 % [place] % (Auto) 13.3 % Eos % (Auto) 0.0 % Baso % (Auto) 0.1 % Neut # (Auto) 5.91 (1.40-6.50) K/uL Lymph # (Auto) 0.56 L (1.20-3.40) K/uL [place] # (Auto) 1.00 H (0.11-0.59) K/uL Eos # (Auto) 0.00 (0.00-0.50) K/uL Baso # (Auto) 0.01 (0.00-0.20) K/uL Immature Gran # (Auto) 0.02 (0.01-0.20) K/uL Sodium 140 (136-145) mmol/L Potassium 4.0 (3.5-5.1) mmol/L Chloride 107 (98-107) mmol/L Carbon Dioxide 24 (21-32) mmol/L Anion Gap 9 (3-11) BUN 29 H (6-23) mg/dl Creatinine 1.68 H (0.6-1.4) mg/dl Est Cr Clr Drug Dosing Not Reportable eGFR 40.57 BUN/Creatinine Ratio 17.3 (10-20) Glucose 108 H (70-99(Fasting)) mg/dl Calcium 9.7 (8.6-10.3) mg/dl Total Bilirubin 2.0 H (0.2-1.0) mg/dl AST 23 (13-39) U/L ALT 19 (7-52) U/L Alkaline Phosphatase 83 (34-104) U/L Total Protein 7.1 (6.0-8.3) gm/dl Albumin 4.6 (3.4-5.0) gm/dl Globulin 2.5 (2.5-4.0) gm/dl Albumin/Globulin Ratio 1.8 (0.9-2) Urine Color Yellow Urine Appearance Clear (Clear) Urine pH 6.0 (4.5-7.5) Ur Specific [place] 1.022 (1.000-1.030) Urine Protein Trace H (Negative) Urine Glucose (UA) Negative (Negative) Urine Ketones Negative (Negative) Urine Blood Negative (Negative) Urine Nitrite Negative (Negative) Urine Bilirubin Negative (Negative) Urine Urobilinogen Positive H (Negative) Ur Leukocyte Esterase Negative (Negative) Urine WBC (Auto) 0-5 (0-5) /hpf Urine RBC (Auto) 0-2 (0-2) /hpf U Hyaline Cast (Auto) 0-2 (0-2) /lpf U Epithel Cells (Auto) 0-2 (0-2) /hpf Urine Bacteria (Auto) None Seen (None Seen) Adenovirus (PCR) Not Detected (NotDetected) B. pertussis DNA (PCR) Not Detected (NotDetected) B.parapertussis DNA PCR Not Detected (NotDetected) C. pneumoniae DNA (PCR) Not Detected (NotDetected) Coronavirus OC43 (PCR) Not Detected (NotDetected) Coronavirus HKU1 (PCR) Not Detected (NotDetected) Coronavirus 229E (PCR) Not Detected (NotDetected) SARS-CoV-2 (PCR) DETECTED A (NotDetected) Coronavirus NL63 (PCR) Not Detected (NotDetected) Human Metapneumovir PCR Not Detected (NotDetected) Influenza Type A (PCR) Not Detected (NotDetected) Influenza Type B (PCR) Not Detected (NotDetected) M. pneumoniae (PCR) Not Detected (NotDetected) Parainfluenza 1 (PCR) Not Detected (NotDetected) Parainfluenza 2 (PCR) Not Detected (NotDetected) Parainfluenza 3 (PCR) Not Detected (NotDetected) Parainfluenza 4 (PCR) Not Detected (NotDetected) RSV (PCR) Not Detected (NotDetected) Entero/Rhino (PCR) Not Detected (NotDetected) Administered Medications Amlodipine Besylate (Amlodipine Besylate 5 Mg Tab) 2.5 mg PO BID [facility] Stop: 06/13/24 22:37 Last Admin: 05/15/24 20:09 Dose: 2.5 mg Documented By: Admin: 05/15/24 08:28 Dose: 2.5 mg Documented By: Admin: 05/14/24 23:11 Dose: 2.5 mg Documented By: MARKUS Atenolol (Atenolol 25 Mg Tablet) 25 mg PO [facility] Stop: 06/14/24 08:59 Last Admin: 05/15/24 08:35 Dose: 25 mg Documented By: FABIANO Clopidogrel Bisulfate (Clopidogrel Bisulfate 75 Mg Tab) 75 mg PO [facility] Stop: 06/14/24 08:59 Last Admin: 05/15/24 08:35 Dose: 75 mg Documented By: FABIANO Finasteride (Finasteride 5 Mg Tab) 5 mg PO [facility] Stop: 06/14/24 08:59 Last Admin: 05/15/24 08:35 Dose: 5 mg Documented By: FABIANO Heparin Sodium (Porcine) (Heparin Sod 5,000 Unit/0.5 Ml Vial) 5,000 units SQ Q8 [facility] Stop: 06/13/24 22:59 Last Admin: 05/15/24 21:55 Dose: 5,000 units Documented By: Admin: 05/15/24 13:51 Dose: 5,000 units Documented By: Admin: 05/15/24 05:31 Dose: 5,000 units Documented By: senior corporate recruiter: 05/14/24 23:12 Dose: 5,000 units Documented By: MARKUS Remdesivir 100 mg/ Sodium (Chloride) 250 mls @ 250 mls/hr IV Q24H [facility] Stop: 05/18/24 20:59 Last Infusion: 05/15/24 21:08 Dose: Infused Documented By: Admin: 05/15/24 20:08 Dose: 250 mls/hr Documented By: ANMOL Memantine (Memantine Hcl 5 Mg Tab) 5 mg PO BID [facility] Stop: 06/13/24 22:37 Last Admin: 05/15/24 20:10 Dose: 5 mg Documented By: Admin: 05/15/24 08:28 Dose: 5 mg Documented By: Admin: 05/14/24 23:11 Dose: 5 mg Documented By: MARKUS Miscellaneous (Fluorouracil 5 % Cream - Order Awaiting Action) 1 each N/A QS [facility] Stop: 06/14/24 00:00 Last Admin: 05/16/24 00:52 Dose: Not Given Documented By: Admin: 05/15/24 15:01 Dose: Not Given Documented By: Admin: 05/15/24 08:35 Dose: Not Given Documented By: Admin: 05/15/24 01:20 Dose: Not Given Documented By: RUPERT Multivitamins (Multivitamin Tab) 0.5 tab PO BID [facility] Stop: 06/13/24 22:37 Last Admin: 05/15/24 20:10 Dose: 0.5 tab Documented By: Admin: 05/15/24 08:34 Dose: 0.5 tab Documented By: Admin: 05/14/24 23:11 Dose: 0.5 tab Documented By: MARKUS Pantoprazole Sodium (Pantoprazole 40 Mg Tab) 40 mg PO [facility] Stop: 06/14/24 08:59 Last Admin: 05/15/24 08:35 Dose: 40 mg Documented By: FABIANO Rosuvastatin Calcium (Rosuvastatin Calcium 20 Mg Tab) 20 mg PO [facility] Stop: 06/14/24 08:59 Last Admin: 05/15/24 08:35 Dose: 20 mg Documented By: FABIANO Discontinued Medications Lactated Ringer's (Lr) 1,000 mls @ 75 mls/hr IV .[id number] [facility] Stop: 05/15/24 11:57 Last Infusion: 05/15/24 17:40 Dose: Infused Documented By: Infusion: 05/15/24 13:52 Dose: 0 mls/hr Documented By: Infusion: 05/15/24 13:52 Dose: 0 mls/hr Documented By: Admin: 05/15/24 01:04 Dose: 75 mls/hr Documented By: RUPERT Remdesivir 200 mg/ Sodium (Chloride) 250 mls @ 125 mls/hr IV ONE STA; Protocol Stop: 05/15/24 00:40 Last Infusion: 05/15/24 01:06 Dose: Infused Documented By: senior corporate recruiter: 05/14/24 23:08 Dose: 125 mls/hr Documented By: MARKUS Dexamethasone 6 mg/ Syringe 1.5 mls @ 1 mls/min IV DAILY [facility] Stop: 05/25/24 08:59 Last Admin: 05/15/24 08:28 Dose: 1 mls/min Documented By: FABIANO Imaging Data Radiologist's Impression: Head CT 05/14/24 17:07 CT head/brain wo con CLINICAL HISTORY: confusion Technique: Contiguous axial CT images of the head were acquired from the base of the skull to the vertex without intravenous contrast administration. Images were viewed in brain, subdural and bone windows. Automated dose lowering techniques and/or adjustment according to patient size were utilized for this exam. Comparison: Comparison is made to CTA head and neck 02/03/2024 Findings: Areas of decreased attenuation are present in the periventricular and subcortical white matter bilaterally consistent with small vessel ischemic disease. Generalized cerebral atrophy with commensurate enlargement of the ventricles, sulci, and cisterns is also present. There is no acute intracranial hemorrhage or evidence of acute territorial infarction. No shift of the midline structures, mass effect, or extra-axial abnormalities are shown. Atherosclerotic calcifications are present in the intracranial segments of the internal carotid arteries. Imaged portions of the paranasal sinuses and mastoid air cells are clear. The orbits appear normal. There are no acute fractures of the calvaria or scalp swelling. Impression: No acute intracranial hemorrhage, no evidence of acute territorial infarction or other acute intracranial disease process. ACT 112: Negative or not required by law. Electronically signed by: Jose Carlos Duron M.D. 05/14/2024 5:29 PM Abdomen/Pelvis CT 05/14/24 18:04 CT abd pelvis wo con CLINICAL HISTORY: uti, hx stones an harlan TECHNIQUE: Helical axial images of the abdomen and pelvis were obtained. Automated dose lowering techniques and/or adjustment according to patient size were utilized for this exam. This exam was performed without intravenous contrast. CT DOSE: 1057.25 mGy.cm COMPARISON: Comparison is made to CT abdomen pelvis 12/18/2021 FINDINGS: Lower chest: Bibasilar atelectasis versus scarring is seen. Liver: Hepatic cysts are seen. Gallbladder and biliary tree: Cholelithiasis is seen without evidence of cholecystitis. No intra- or extrahepatic biliary ductal dilation. Pancreas: Unremarkable, no focal lesions. Spleen: Unremarkable. Adrenals: Nodularity of the adrenal glands is noted. Kidneys and ureters: A left renal cyst is seen. Bladder: Unremarkable. Reproductive organs: Unremarkable. Bowel: Diverticulosis is seen without diverticulitis. The appendix is normal. Lymph nodes Retroperitoneal: Unremarkable. Pelvic: Unremarkable. Mesenteric: Unremarkable. Peritoneum: Normal. Vessels: Infrarenal aortic aneurysm measures 45 x 37 mm. Abdominal wall: Unremarkable. Bones: Degenerative changes in the visualized spine. L3 bone hemangioma is incidentally noted. IMPRESSION: 1. No acute abnormalities and in particular no evidence of obstructive stone or hydronephrosis. 2. Diverticulosis without diverticulitis. 3. Cholelithiasis without cholecystitis. 4. Additional findings as above. ACT 112: Negative or not required by law. Electronically signed by: Jose Carlos Duron M.D. 05/14/2024 6:38 PM Chest X-Ray 05/14/24 18:13 XR chest 1V portable CLINICAL HISTORY: cough TECHNIQUE: Single frontal radiograph of the chest was obtained. Comparison: Comparison is made to chest radiograph 02/03/2024 FINDINGS: No lines and tubes are seen. Calcified aortic knob is seen. The lungs are clear. No evidence of pleural effusion or pneumothorax. IMPRESSION: No acute chest disease. ACT 112: Negative or not required by law. Electronically signed by: Jose Carlos Duron M.D. 05/14/2024 7:00 PM Discharge Plan Visit Data Chief Complaint: Urinary Symptoms Stated Complaint: UTI, CONFUSION, DIMENTIA ED Provider: Tania Ureña Discharge Problem: Acute confusion, Generalized weakness, COVID-19 Patient Disposition: Admitted As Inpatient Discharge Instructions Interventions: ED Discharge Assessment Last Done: 05/14/24 22:15
--- NOTE | 2024-05-14 18:39 | CT Scan Report ---
CT abd pelvis wo con CLINICAL HISTORY: uti, hx stones an armando TECHNIQUE: Helical axial images of the abdomen and pelvis were obtained. Automated dose lowering tech niques and/or adjustment according to patient size were utilized for this exam. This exam was perfor med without intravenous contrast. CT DOSE: 1057.25 mGy.cm COMPARISON: Comparison is made to CT abdomen pelvis 12/18/2021 FINDINGS: Lower chest: Bibasilar atelectasis versus scarring is seen. Liver: Hepatic cysts are seen. Gallbladder and biliary tree: Cholelithiasis is seen without evidence of cholecystitis. No intra- or extrahepatic biliary ductal dilation. Pancreas: Unremarkable, no focal lesions. Spleen: Unremarkable. Adrenals: Nodularity of the adrenal glands is noted. Kidneys and ureters: A left renal cyst is seen. Bladder: Unremarkable. Reproductive organs: Unremarkable. Bowel: Diverticulosis is seen without diverticulitis. The appendix is normal. Lymph nodes Retroperitoneal: Unremarkable. Pelvic: Unremarkable. Mesenteric: Unremarkable. Peritoneum: Normal. Vessels: Infrarenal aortic aneurysm measures 45 x 37 mm. Abdominal wall: Unremarkable. Bones: Degenerative changes in the visualized spine. L3 bone hemangioma is incidentally noted. IMPRESSION: 1. No acute abnormalities and in particular no evidence of obstructive stone or hydronephrosis. 2. Diverticulosis without diverticulitis. 3. Cholelithiasis without cholecystitis. 4. Additional findings as above. ACT 112: Negative or not required by law. Electronically signed by: Jose Carlos Duron M.D. 05/14/2024 6:38 PM
--- NOTE | 2024-05-14 19:02 | XRay Report ---
XR chest 1V portable CLINICAL HISTORY: cough TECHNIQUE: Single frontal radiograph of the chest was obtained. Comparison: Comparison is made to chest radiograph 02/03/2024 FINDINGS: No lines and tubes are seen. Calcified aortic knob is seen. The lungs are clear. No evidence of pleur al effusion or pneumothorax. IMPRESSION: No acute chest disease. ACT 112: Negative or not required by law. Electronically signed by: Jose Carlos Duron M.D. 05/14/2024 7:00 PM
[2024-05-14 19:40] LABS: Appearance Urine Clear (Clear); Bacteria Urine Automated None Seen (None Seen); Bilirubin Urine Negative (Negative); Blood Urine Negative (Negative); Cast Urine Automated 0-2 /lpf (0-2); Color Urine Yellow; Epithelial Cell Urine Auto 0-2 /hpf (0-2); Glucose Urine UA Negative (Negative); Ketones Urine Negative (Negative); Leukocyte Esterase Urine Negative (Negative); Nitrite Urine Negative (Negative); Protein Urine Trace (Negative); RBC Urine Automated 0-2 /hpf (0-2); Specific Gravity Urine 1.022 (1.000-1.030); Urobilinogen Urine Positive (Negative); WBC Urine Automated 0-5 /hpf (0-5)
[2024-05-14 19:51] LABS: Adenovirus PCR Not Detected (NotDetected); Bordetella parapertussis PCR Not Detected (NotDetected); Bordetella pertussis PCR Not Detected (NotDetected); Chlamydia pneumoniae PCR Not Detected (NotDetected); Coronavirus 229E PCR Not Detected (NotDetected); Coronavirus CoV-2 (COVID19)PCR DETECTED (NotDetected); Coronavirus HKU1 PCR Not Detected (NotDetected); Coronavirus NL63 PCR Not Detected (NotDetected); Coronavirus OC43PCR Not Detected (NotDetected); Human Metapneumovirus PCR Not Detected (NotDetected); Influenza A PCR Not Detected (NotDetected); Influenza B PCR Not Detected (NotDetected); Mycoplasma pneumoniae PCR Not Detected (NotDetected); Parainfluenza Virus 1 PCR Not Detected (NotDetected); Parainfluenza Virus 2 PCR Not Detected (NotDetected); Parainfluenza Virus 3 PCR Not Detected (NotDetected); Parainfluenza Virus 4 PCR Not Detected (NotDetected); Respiratory Syncytial VirusPCR Not Detected (NotDetected); Rhinovirus/Enterovirus PCR Not Detected (NotDetected)
--- NOTE | 2024-05-14 21:08 | History & Physical Report ---
Date of Service May 14, 2024 Assessment & Plan (1) Acute confusion: Plan: 79-year-old male with past medical history significant for dyslipidemia, cystic mass of pancreas, nocturnal hypoxemia use 2 L while sleeping, history of pneumonia, history of renal artery stenosis, history of abdominal aortic aneurysm, history of atherosclerosis of leg with intermittent claudication, peripheral vascular disease, hypertension, history of CAD s/p stent, CKD stage III, BPH, restless leg syndrome, idiopathic peripheral autonomic neuropathy, iron deficiency anemia, history of memory loss, who lives at home is brought in because of some confusion and poor appetite and found to have COVID. As per since last night patient seemed somewhat confused. He could not remember the bathroom. He could not dress himself. And had low-grade temperatures. Having lot of cough. And poor appetite. No nausea or vomiting. No chest pain. No abdominal pain. No back pain. No headache. No body aches. Has some runny nose. Some sore throat. Has some blurred vision. No difficulty swallowing. Normal bowel and bladder movements. And today was also shaky and was having unsteady gait. thought he might be having UTI as he had similar symptoms when he had UTI in the past and brought him to the ER .Currently in the ER he was saturating 88 to 90% on room air,and was placed on oxygen. Seems comfortable. in the room. As per patient had COVID booster in early April. Acute confusion COVID possible cause of confusion UA is negative Chest x-ray is okay Was saturating 88% room air requiring 2 L oxygen COVID precautions Remdesivir and Decadron Will follow remdesivir labs Monitoring med/telemetry History of CAD status post stents On atenolol, Plavix and Crestor History of PVD On Plavix and Crestor Hypertension On amlodipine and atenolol BPH On Proscar Dementia on memantine GERD On omeprazole Hyperlipidemia On statin Nocturnal hypoxia Uses 2 L oxygen while sleeping Thrombocytopenia Platelets 127 Will follow DVT prophylaxis Heparin subcu Monitor platelets Disposition Med/telemetry Full code. History of Present Illness Chief Complaint: COVID Primary Care Provider: Jelani Wallace DO 79-year-old male with past medical history significant for dyslipidemia, cystic mass of pancreas, nocturnal hypoxemia use 2 L while sleeping, history of pneumonia, history of renal artery stenosis, history of abdominal aortic aneurysm, history of atherosclerosis of leg with intermittent claudication, peripheral vascular disease, hypertension, history of CAD s/p stent, CKD stage III, BPH, restless leg syndrome, idiopathic peripheral autonomic neuropathy, iron deficiency anemia, history of memory loss, who lives at home is brought in because of some confusion and poor appetite and found to have COVID. As per since last night patient seemed somewhat confused. He could not remember the bathroom. He could not dress himself. And had low-grade temperatures. Having lot of cough. And poor appetite. No nausea or vomiting. No chest pain. No abdominal pain. No back pain. No headache. No body aches. Has some runny nose. Some sore throat. Has some blurred vision. No difficulty swallowing. Normal bowel and bladder movements. And today was also shaky and was having unsteady gait. thought he might be having UTI as he had similar symptoms when he had UTI in the past and brought him to the ER .Currently in the ER he was saturating 88 to 90% on room air,and was placed on oxygen. Seems comfortable. in the room. As per patient had COVID booster in early April. Past medical history. As mentioned above. Past surgical history. Colonoscopy. EGD. Cardiac stents placed. Inguinal hernia repair. Social history. . Quit smoking 2003. Smoked 1 pack a day for 30 years. Currently no alcohol use. No drug use. Family history. Father had brain cancer. Mother had heart valve replacement. Uncle had MN. Allergies Allergy/AdvReac Type Severity Reaction Status Date / Time amoxicillin Allergy Severe Rash Verified 05/14/24 20:38 Sulfa (Sulfonamide AdvReac Intermediate Hives Verified 05/14/24 20:38 Antibiotics) linezolid AdvReac Unknown DIZZINESS, Verified 05/14/24 20:38 CHEST PAIN AFTER 4TH DOSE.pt not sure. monoferric Allergy Severe syncope, Uncoded 05/14/24 20:38 vomiting Home Medications Medication Instructions Recorded Confirmed Type atenolol 25 mg tablet 25 mg PO QAM 05/18/20 05/14/24 History omega [id number]-fish oil 1,200 mg 1 cap PO QAM 05/18/20 05/14/24 History (144 mg-216 mg) capsule (Fish Oil) rosuvastatin 20 mg tablet 20 mg PO QAM 05/18/20 05/14/24 History multivitamin 0.5 tab PO BID 06/13/21 05/14/24 History amlodipine 2.5 mg tablet 2.5 mg PO BID 11/04/21 05/14/24 History omeprazole 20 mg capsule,delayed 40 mg PO QAM 11/04/21 05/14/24 History release clopidogrel 75 mg tablet 75 mg PO QAM 12/17/21 05/14/24 History finasteride 5 mg tablet 5 mg PO QAM 01/03/23 05/14/24 History memantine 5 mg tablet 5 mg PO BID 01/03/23 05/14/24 History fluorouracil 5 % topical cream 1 applic topical BID PRN FLARE 02/03/24 05/14/24 History nitroglycerin 0.4 mg sublingual 0.4 mg sublingual DAILY PRN Chest 02/03/24 05/14/24 History tablet Pain Past Med/Surg History Problem List (Updated 05/14/24 @ 20:05 by Tania Ureña DO) COVID-19 (Acute) Generalized weakness (Acute) Acute confusion (Acute) HTN (hypertension) (Chronic) Hypertensive urgency (Acute 08/10/14) Dyslipidemia (Chronic) History of basal cell carcinoma (Chronic) "R neck 2008" Chest pain (Acute) S/P angioplasty with stent (Chronic) "last procedure 2005. " History of inguinal hernia repair (Chronic 1991) BPH without obstruction/lower urinary tract symptoms Encounter for pre-operative examination Syncope (Acute) Anemia (Acute) HARLAN (acute kidney injury) (Acute) Vomiting (Acute) Abdominal pain (Acute) Dysuria (Acute) Acute urinary retention (Acute) Hypoxia (Acute) Hypotension (Acute) Metabolic acidosis Altered mental state GI bleed Bacteremia Abdominal pain (Acute) ABLA (acute blood loss anemia) (Acute) Acute GI bleeding (Acute) AVM (arteriovenous malformation) Encounter for pre-operative examination C. difficile colitis Acute blood loss anemia Medical History History of blood transfusion Toe ulcer Memory problem Follows neuro/[facility]. Enlarged prostate AAA (abdominal aortic aneurysm) Mild Abdominal aortic aneurysms again noted measuring up to 3.9 cm per 12/17/21 abdomen/pelvis CTA Hx of Clostridium difficile infection 12/2021- resolved Sleep apnea suspected sleep apnea, states he has never had sleep study uses o2 at 2lpm via nc at hs Renal artery stenosis R Anemia hx : Iron deficiency anemia 2/2 chronic blood loss (FOBT positive) s/p EGD/Colonscopy 10/24/21 @ [facility] CAD (coronary artery disease) 2003 (stents x2), 2004 (stents x3), 2006 (stents x 2) -- [facility] [place] - follows w/ Dr Pitt last visit 09/2022 Chronic kidney disease Follows with nephrology ([facility]); CKD 3B Heart failure EF 60-65%, follows with cardiology ([facility]) Peripheral vascular disease Follows with vascular (Dr. Najera) "Atherosclerotic PVD with left leg claudication" History of skin cancer s/p excision High cholesterol Controlled HTN (hypertension) Controlled with meds Labile Atypical chest pain Hx of chronic atypical chest pain x several years. [place]ell "food related" per spouse. No recent issues/rare occurrences. Atherosclerotic coronary vascular disease "S/p multiple coronary interventions on all 3 coronary vasculatures. last cardiac cath 2005." Surgical History History of esophagogastroduodenoscopy (EGD) History of herniorrhaphy History of foot surgery Toe removal History of colonoscopy Colonoscopy + EGD (10/24/21): @ [facility], History of cardiac cath 2003 (stents x2), 2004 (stents x3), 2006 (stents x 2) Family History Mother Heart disease Hypertension Family history of reaction to anesthesia PONV Social History Smoking Status: Never smoker Tobacco Type: Cigarettes Cigarettes Per Day: quit 2003; Second Hand Exposure: No; Do You Dip or Chew Tobacco: No; Hx Alcohol Use: No Hx Substance Use: No Preferred Language: Luxembourger Communication Ability: Effective Communication Ability Comment: PT HX POOR HISOTRIAN FOR MED ? S. PT REQ TO DO PHONE INTERVIEW. 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 ENT- oropharynx clear Neck- supple, no JVD. Lungs- clear to auscultation and percussion Heart- regular rhythm; no murmur, no gallop, no rub appreciated Abdomen- normal bowel sounds, soft, nontender, no distension Extremities- no pretibial edema, no erythema Neuro- alert, oriented PERRL, no facial palsy; no dysarthria; moves extremities Skin- warm & dry Results & Data Results & Data Vital Signs (Past 12 Hours) Vital Signs Temp Pulse Pulse Resp BP BP Pulse Ox 05/14/24 20:02 68 23 90 05/14/24 20:00 152/73 H 05/14/24 19:59 67 19 91 05/14/24 19:30 68 18 153/74 H 93 05/14/24 19:21 70 22 92 05/14/24 19:00 67 23 167/75 H 05/14/24 18:48 67 21 05/14/24 18:39 69 15 93 05/14/24 18:34 164/80 H 05/14/24 18:12 70 23 05/14/24 18:06 71 19 05/14/24 18:02 76 05/14/24 18:00 154/75 H 05/14/24 17:56 71 17 05/14/24 17:53 69 22 05/14/24 17:45 73 16 163/76 H 93 05/14/24 17:03 37.0 C 75 19 137/62 92 O2 Del Method 05/14/24 20:02 Room Air 05/14/24 20:00 05/14/24 19:59 Room Air 05/14/24 19:30 Room Air 05/14/24 19:21 Room Air 05/14/24 19:00 05/14/24 18:48 05/14/24 18:39 Room Air 05/14/24 18:34 05/14/24 18:12 05/14/24 18:06 05/14/24 18:02 05/14/24 18:00 05/14/24 17:56 05/14/24 17:53 05/14/24 17:45 Room Air 05/14/24 17:03 Room Air Diagnostic Findings Laboratory Results WBC 7.50 K/ul (4.8-10.8) 05/14/24 17:11 RBC 4.62 M/uL (4.70-6.10) L 05/14/24 17:11 Hgb 14.0 g/dl (14.0-18.0) 05/14/24 17:11 Hct 40.5 % (42.0-52.0) L 05/14/24 17:11 MCV 87.7 fL (80.0-100.0) 05/14/24 17:11 MCH 30.3 pg (25.0-34.0) 05/14/24 17:11 MCHC 34.6 g/dL (32.0-36.0) 05/14/24 17:11 RDW Std Deviation 43.5 fL (36.4-46.3) 05/14/24 17:11 RDW Coeff of Jong 13.7 % (11.5-14.5) 05/14/24 17:11 Plt Count 127 K/uL (130-400) L 05/14/24 17:11 MPV 10.1 fL (9.4-12.4) 05/14/24 17:11 Immature Gran % (Auto) 0.3 % 05/14/24 17:11 Neut % (Auto) 78.8 % 05/14/24 17:11 Lymph % (Auto) 7.5 % 05/14/24 17:11 Allen % (Auto) 13.3 % 05/14/24 17:11 Eos % (Auto) 0.0 % 05/14/24 17:11 Baso % (Auto) 0.1 % 05/14/24 17:11 Neut # (Auto) 5.91 K/uL (1.40-6.50) 05/14/24 17:11 Lymph # (Auto) 0.56 K/uL (1.20-3.40) L 05/14/24 17:11 Allen # (Auto) 1.00 K/uL (0.11-0.59) H 05/14/24 17:11 Eos # (Auto) 0.00 K/uL (0.00-0.50) 05/14/24 17:11 Baso # (Auto) 0.01 K/uL (0.00-0.20) 05/14/24 17:11 Immature Gran # (Auto) 0.02 K/uL (0.01-0.20) 05/14/24 17:11 Sodium 140 mmol/L (136-145) 05/14/24 17:11 Potassium 4.0 mmol/L (3.5-5.1) 05/14/24 17:11 Chloride 107 mmol/L (98-107) 05/14/24 17:11 Carbon Dioxide 24 mmol/L (21-32) 05/14/24 17:11 Anion Gap 9 (3-11) 05/14/24 17:11 BUN 29 mg/dl (6-23) H 05/14/24 17:11 Creatinine 1.68 mg/dl (0.6-1.4) H 05/14/24 17:11 Est Cr Clr Drug Dosing Not Reportable 05/14/24 17:11 eGFR 40.57 05/14/24 17:11 BUN/Creatinine Ratio 17.3 (10-20) 05/14/24 17:11 Glucose 108 mg/dl (70-99(Fasting)) H 05/14/24 17:11 Calcium 9.7 mg/dl (8.6-10.3) 05/14/24 17:11 Total Bilirubin 2.0 mg/dl (0.2-1.0) H 05/14/24 17:11 AST 23 U/L (13-39) 05/14/24 17:11 ALT 19 U/L (7-52) 05/14/24 17:11 Alkaline Phosphatase 83 U/L (34-104) 05/14/24 17:11 Total Protein 7.1 gm/dl (6.0-8.3) 05/14/24 17:11 Albumin 4.6 gm/dl (3.4-5.0) 05/14/24 17:11 Globulin 2.5 gm/dl (2.5-4.0) 05/14/24 17:11 Albumin/Globulin Ratio 1.8 (0.9-2) 05/14/24 17:11 Urine Color Yellow 05/14/24 19:15 Urine Appearance Clear (Clear) 05/14/24 19:15 Urine pH 6.0 (4.5-7.5) 05/14/24 19:15 Ur Specific [place] 1.022 (1.000-1.030) 05/14/24 19:15 Urine Protein Trace (Negative) H 05/14/24 19:15 Urine Glucose (UA) Negative (Negative) 05/14/24 19:15 Urine Ketones Negative (Negative) 05/14/24 19:15 Urine Blood Negative (Negative) 05/14/24 19:15 Urine Nitrite Negative (Negative) 05/14/24 19:15 Urine Bilirubin Negative (Negative) 05/14/24 19:15 Urine Urobilinogen Positive (Negative) H 05/14/24 19:15 Ur Leukocyte Esterase Negative (Negative) 05/14/24 19:15 Urine WBC (Auto) 0-5 /hpf (0-5) 05/14/24 19:15 Urine RBC (Auto) 0-2 /hpf (0-2) 05/14/24 19:15 U Hyaline Cast (Auto) 0-2 /lpf (0-2) 05/14/24 19:15 U Epithel Cells (Auto) 0-2 /hpf (0-2) 05/14/24 19:15 Urine Bacteria (Auto) None Seen (None Seen) 05/14/24 19:15 Adenovirus (PCR) Not Detected (NotDetected) 05/14/24 18:17 B. pertussis DNA (PCR) Not Detected (NotDetected) 05/14/24 18:17 B.parapertussis DNA PCR Not Detected (NotDetected) 05/14/24 18:17 C. pneumoniae DNA (PCR) Not Detected (NotDetected) 05/14/24 18:17 Coronavirus OC43 (PCR) Not Detected (NotDetected) 05/14/24 18:17 Coronavirus HKU1 (PCR) Not Detected (NotDetected) 05/14/24 18:17 Coronavirus 229E (PCR) Not Detected (NotDetected) 05/14/24 18:17 SARS-CoV-2 (PCR) DETECTED (NotDetected) A 05/14/24 18:17 Coronavirus NL63 (PCR) Not Detected (NotDetected) 05/14/24 18:17 Human Metapneumovir PCR Not Detected (NotDetected) 05/14/24 18:17 Influenza Type A (PCR) Not Detected (NotDetected) 05/14/24 18:17 Influenza Type B (PCR) Not Detected (NotDetected) 05/14/24 18:17 M. pneumoniae (PCR) Not Detected (NotDetected) 05/14/24 18:17 Parainfluenza 1 (PCR) Not Detected (NotDetected) 05/14/24 18:17 Parainfluenza 2 (PCR) Not Detected (NotDetected) 05/14/24 18:17 Parainfluenza 3 (PCR) Not Detected (NotDetected) 05/14/24 18:17 Parainfluenza 4 (PCR) Not Detected (NotDetected) 05/14/24 18:17 RSV (PCR) Not Detected (NotDetected) 05/14/24 18:17 Entero/Rhino (PCR) Not Detected (NotDetected) 05/14/24 18:[address] 05/14/24 17:07 CT head/brain wo con CLINICAL HISTORY: confusion Technique: Contiguous axial CT images of the head were acquired from the base of the skull to the vertex without intravenous contrast administration. Images were viewed in brain, subdural and bone windows. Automated dose lowering techniques and/or adjustment according to patient size were utilized for this exam. Comparison: Comparison is made to CTA head and neck 02/03/2024 Findings: Areas of decreased attenuation are present in the periventricular and subcortical white matter bilaterally consistent with small vessel ischemic disease. Generalized cerebral atrophy with commensurate enlargement of the ventricles, sulci, and cisterns is also present. There is no acute intracranial hemorrhage or evidence of acute territorial infarction. No shift of the midline structures, mass effect, or extra-axial abnormalities are shown. Atherosclerotic calcifications are present in the intracranial segments of the internal carotid arteries. Imaged portions of the paranasal sinuses and mastoid air cells are clear. The orbits appear normal. There are no acute fractures of the calvaria or scalp swelling. Impression: No acute intracranial hemorrhage, no evidence of acute territorial infarction or other acute intracranial disease process. ACT 112: Negative or not required by law. Electronically signed by: Jose Carlos Duron M.D. 05/14/2024 5:29 PM Abdomen/Pelvis CT 05/14/24 18:04 CT abd pelvis wo con CLINICAL HISTORY: uti, hx stones an harlan TECHNIQUE: Helical axial images of the abdomen and pelvis were obtained. Automated dose lowering techniques and/or adjustment according to patient size were utilized for this exam. This exam was performed without intravenous contrast. CT DOSE: 1057.25 mGy.cm COMPARISON: Comparison is made to CT abdomen pelvis 12/18/2021 FINDINGS: Lower chest: Bibasilar atelectasis versus scarring is seen. Liver: Hepatic cysts are seen. Gallbladder and biliary tree: Cholelithiasis is seen without evidence of cholecystitis. No intra- or extrahepatic biliary ductal dilation. Pancreas: Unremarkable, no focal lesions. Spleen: Unremarkable. Adrenals: Nodularity of the adrenal glands is noted. Kidneys and ureters: A left renal cyst is seen. Bladder: Unremarkable. Reproductive organs: Unremarkable. Bowel: Diverticulosis is seen without diverticulitis. The appendix is normal. Lymph nodes Retroperitoneal: Unremarkable. Pelvic: Unremarkable. Mesenteric: Unremarkable. Peritoneum: Normal. Vessels: Infrarenal aortic aneurysm measures 45 x 37 mm. Abdominal wall: Unremarkable. Bones: Degenerative changes in the visualized spine. L3 bone hemangioma is incidentally noted. IMPRESSION: 1. No acute abnormalities and in particular no evidence of obstructive stone or hydronephrosis. 2. Diverticulosis without diverticulitis. 3. Cholelithiasis without cholecystitis. 4. Additional findings as above. ACT 112: Negative or not required by law. Electronically signed by: Jose Carlos Duron M.D. 05/14/2024 6:38 PM Chest X-Ray 05/14/24 18:13 XR chest 1V portable CLINICAL HISTORY: cough TECHNIQUE: Single frontal radiograph of the chest was obtained. Comparison: Comparison is made to chest radiograph 02/03/2024 FINDINGS: No lines and tubes are seen. Calcified aortic knob is seen. The lungs are clear. No evidence of pleural effusion or pneumothorax. IMPRESSION: No acute chest disease. ACT 112: Negative or not required by law. Electronically signed by: Jose Carlos Duron M.D. 05/14/2024 7:00 PM Code Status & VTE Plan VTE Prophylaxis Plan VTE Prophylaxis will be ordered: Yes
[2024-05-14] MEDS ORDERED: NITROGLYCERIN SL 0.4 MG/TAB TAB SL PRN (22:38)
[2024-05-14] MEDS ORDERED: POLYETHYLENE (MIRALAX) 17 GM PACK PO PRN (22:38)
[2024-05-14] MEDS: REMDESIVIR 200 MG in SODIUM CHLORIDE 0.9% 210 ML IV STA (23:08)
[2024-05-14] MEDS: amLODIPine BESYLATE 5 MG TAB PO SCH (23:11)
[2024-05-14] MEDS: MEMANTINE HCL 5 MG TAB PO SCH (23:11)
[2024-05-14] MEDS: MULTIVITAMIN TAB PO SCH (23:11)
[2024-05-14] MEDS: HEPARIN SOD 5,000 UNIT/0.5 ML VIAL SQ SCH (23:12)
[2024-05-14] MEDS ORDERED: PNEUMOCOCCAL VACCINE (PCV20) 20-VAL CONJ-DIP CRM/PF 0.5 ML SYR IM ONE (23:26)
[2024-05-14] MEDS ORDERED: INFLUENZA VACC TS2024-25(65y+)/PF (IIV3) 0.5mL Syr IM ONE (23:26)
[2024-05-15] MEDS: LACTATED RINGER'S 1,000 ML IV SCH (01:04)
[2024-05-15 06:17] LABS: Basophils # (auto) 0.02 K/uL (0.00-0.20); Basophils % (auto) 0.4 %; Eosinophils # (auto) 0.01 K/uL (0.00-0.50); Eosinophils % (auto) 0.2 %; Hematocrit (blood only) 35.2 % (42.0-52.0); Hemoglobin 12.4 g/dl (14.0-18.0); Immature Granulocytes # (auto) 0.02 K/uL (0.01-0.20); Immature Granulocytes % (auto) 0.4 %; Lymphocytes % (auto) 12.7 %; Mean Corpuscular Hemoglobin 30.7 pg (25.0-34.0); Mean Corpuscular Hgb Conc 35.2 g/dL (32.0-36.0); Mean Corpuscular Volume 87.1 fL (80.0-100.0); Mean Platelet Volume 10.3 fL (9.4-12.4); Monocytes # (auto) 0.98 K/uL (0.11-0.59); Monocytes % (auto) 17.7 %; Neutrophils % (auto) 68.6 %; Platelet Count 107 K/uL (130-400); RDW Coefficient of Variation 13.8 % (11.5-14.5); RDW Standard Deviation 44.5 fL (36.4-46.3); Red Blood Count 4.04 M/uL (4.70-6.10); White Blood Count 5.53 K/ul (4.8-10.8)
[2024-05-15 06:37] LABS: Albumin Level 3.9 gm/dl (3.4-5.0); BUN Creatinine Ratio 20.8 (10-20); Bilirubin Direct 0.3 mg/dl (0-0.2); Bilirubin,Total 1.6 mg/dl (0.2-1.0); Calcium 8.8 mg/dl (8.6-10.3); Creatinine Clr Calc Pharmacy 37.6 ml/min; Magnesium 2.1 mg/dl (1.7-2.4); Potassium 3.8 mmol/L (3.5-5.1)
[2024-05-15] MEDS: dexAMETHasone 6 MG in SYRINGE 0 ML IV SCH (08:28)
[2024-05-15] MEDS: FINASTERIDE 5 MG TAB PO SCH (08:35)
[2024-05-15] MEDS: ROSUVASTATIN CALCIUM 20 MG TAB PO SCH (08:35)
[2024-05-15] MEDS: PANTOprazole 40 MG TAB PO SCH (08:35)
[2024-05-15] MEDS: ATENOLOL 25 MG TABLET PO SCH (08:35)
[2024-05-15] MEDS: CLOPIDOGREL BISULFATE 75 MG TAB PO SCH (08:35)
--- OUTSIDE RECORDS SUMMARY | 2024-05-15 12:33 | External Medical Summary | Summary of Care ---
Author Name Unknown Organization [facility] Address [address] [place] [address] Phone [phone] Care Team Providers [facility] Name Role Phone Jelani Wallace Primary Care Provider Reason for Visit * Reason Comments Follow Up 6 month follow up Encounter Details Date Type Department Care Team (Late st Contact Info) Description 04/11/2024 11:45 AM EDT Office Visit Hematology/Oncology [facility] [place] [address] [facility] [place] [phone] Marquez Fiore MD [address] [facility] [address] Iron deficiency anemia, unspecified iron deficiency anemia type* Allergies Active Allergy Reactions Criticality Noted Date Comments Amoxicillin Rash High 10/19/2006 Other reaction(s): Rash Linezolid Other (Please comment) High 09/07/2021 Dizziness, Chest pain - occurred after patient took 4th dose, resolved after stopping (reported by patient's ) Other reaction(s): DIZZINESS, CHEST PAIN AFTER 4TH DOSE. Ferric Derisomaltose Nausea/vomiting,Oth er (Please comment) High 01/24/2022 reports pt threw up and passed out the evening of monoferric infusion and ended up in hospital for 5 days Other Allergy (See Comments) 01/11/2022 Sulfa Drugs Sulfa Antibiotics Hives High 05/03/2021 Other reaction(s): Hives, nausea documented as of this encounter (statuses as of 04/11/2024) Medications Medication Sig Dispensed Refills Start Date End Date Status MULTIVITAMIN TABS OR one pill each day 100 0 05/03/2004 Active oxygen IN GASIndications:Noct urnal hypoxemia Use as directed 2 L/min(Oxygen) at bedtime . & with all and any sleep 1 Each 01/16/2022 Active Fish Oil 1000 MG Oral CapsuleIndications: S/P angioplasty with stent,Mixed dyslipidemia Take 1 Capsule by mouth in the morning. 64 Capsule 09/08/2022 Active Ferrous Sulfate 325 (65 Fe) MG Oral Tablet (Feosol)Indications :Low serum iron Take 1 Tablet by mouth every other day. 45 Tablet 3 10/11/2022 Active Additional Information Patient not taking.Reported on 03/26/2024 Rosuvastatin Calcium 20 MG Oral Tablet (Crestor)Indication s:Dyslipidemia, goal LDL below 100 TAKE 1 TABLET BY MOUTH DAILY 90 Tablet 3 04/29/2023 Active Finasteride 5 MG Oral Tablet (Proscar) TAKE 1 TABLET BY MOUTH IN THE MORNING 90 Tablet 3 06/14/2023 Active amLODIPine Besylate 2.5 MG Oral Tablet (Norvasc)Indication s:HTN, goal below 130/80 TAKE 1 TABLET BY MOUTH TWICE DAILY 180 Tablet 3 06/14/2023 Active Nitroglycerin 0.4 MG Sublingual Tablet Sublingual (Nitrostat)Indicati ons:Coronary artery disease involving seneca-cayuga coronary artery of seneca-cayuga heart without angina pectoris Place 1 Tablet under the tongue every 5 minutes as needed for Pain, Chest. up to 3 doses in 15 minutes 25 Tablet 11 06/18/2023 Active Additional Information Patient not taking.Reported on 03/26/2024 Atenolol 25 MG Oral Tablet (Tenormin)Indicatio ns:HTN, goal below 140/90 TAKE 1 TABLET BY MOUTH DAILY 90 Tablet 2 08/28/2023 Active Clopidogrel Bisulfate 75 MG Oral Tablet (pLAVix)Indications :Chronic ischemic heart disease,S/P angioplasty with stent TAKE 1 TABLET BY MOUTH DAILY 90 Tablet 3 11/21/2023 Active Fluorouracil 5 % External Cream (Efudex) Apply to lesions on face and hands two times a day for 3-4 weeks. 40 g 12/06/2023 Active Memantine HCl 5 MG Oral Tablet (Namenda)Indication s:MCI (mild cognitive impairment),Memory loss TAKE 1 TABLET BY MOUTH TWICE DAILY WITH MORNING AND EVENING MEALS 180 Tablet 3 12/26/2023 Active Albuterol Sulfate HFA 108 (90 Base) MCG/ACT Inhalation Aerosol Solution Inhale 2 Puffs by mouth every 6 hours as needed for Shortness of Breath. 01/28/2024 Active LORazepam 0.5 MG Oral Tablet (Ativan)Indications :Situational anxiety Take 1 tablet by mouth 30 min prior to the MRI. 1 Tablet 02/14/2024 Active Omeprazole 40 MG Oral Capsule Delayed Release (PriLOSEC) Take 1 Capsule by mouth in the morning. 90 Capsule 1 03/26/2024 Active documented as of this encounter (statuses as of 04/11/2024) Active Problems Problem Noted Date Diagnosed Date Insomnia 03/26/2024 Pneumonia of lower lobe due to infectious organi sm 03/26/2024 RLS (restless legs syndrome) 03/26/2024 PLMD (periodic limb movement disorder) REM sleep behavior disorder 03/26/2024 Cystic mass of pancreas 03/15/2024 Overview: Unchanged Mar 2024 - 1 year f/u recommended Memory loss 09/19/2022 Nocturnal hypoxemia 12/13/2021 Anemia 11/08/2021 Myocardial injury 11/07/2021 Enlarged prostate with lower urinary tract sympt oms (LUTS) 11/07/2021 Other iron deficiency anemias 10/28/2021 Dyslipidemia, goal LDL below 70 08/24/2021 Idiopathic peripheral autonomic neuropathy 06/28 Coronary artery disease invo lving seneca-cayuga coronary artery of seneca-cayuga heart without angina pectoris 07/07/2020 Hypertensive kidney disease with stage 3b chronic kidney disease 06/14/2020 Overview: Per CKD protocol Acquired hammer toe deformity of lesser toe of r ight foot 05/25/2020 Atherosclerosis of leg with intermittent claudic ation 05/09/2018 HAL (renal artery stenosis) 11/05/2017 Abdominal aortic aneurysm (AAA) without rupture 11/05/2017 Abdominal aortic ectasia 09/25/2014 HTN, goal below 130/80 07/20/2010 S/P angioplasty with stent 05/03/2004 History of tobacco use 01/08/2004 PVD (peripheral vascular disease) documented as of this encounter (statuses as of 04/11/2024) Resolved Problems Problem Noted Date Diagnosed Date Resolved Date Unspecified dementia, unspec ified severity, without behavioral disturbance, psychotic disturbance, mood disturbance, and anxiety 01/31/2024 02/01/2024 Anemia in stage 4 chronic kidney disease 09/19/2022 06/25/2023 GI bleed 11/07/2021 11/08/2021 Acute blood loss anemia 11/07/2021 04/12/2021 HARLAN (acute kidney injury) 11/07/2021 Syncope and collapse 11/07/2021 024 Aspiration pneumonia 11/07/2021 022 Streptococcal bacteremia 11/07/2021 Acute respiratory failure with hypoxia 11/07/2021 11/08/2021 Neuropathic ulcer of right f oot with fat layer exposed 06/28/2021 01/31/2024 Chronic kidney disease, stage 3b 12/14/2020 04/13/2022 Overview: Per CKD protocol History of kidney stones 05/14/201909/2019 Hypertensive kidney disease with chronic kidney disease stage III 10/24/2018 06/17/2020 Overview: Per CKD protocol Screening for prostate cancer 05/09/2018 05/14/2019 Hx of actinic keratosis 05/12/201509/2019 Overview: Efudex (05/24-hands/temples/cheeks) Stage 3b chronic kidney disease 10/19/2014 09/16/2020 Overview: Per CKD protocol #1 Cough 06/29/2012 12/18/2017 HX-SKIN MALIGNANCY NEC - NMSC 02/10/2010 07/07/2020 Overview: Hx NMSC - 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 Also Hx another NMSC on face, but pt forgets type and year (Dr. Meek). Dyslipidemia 07/15/2009 04/13/2022 Overview: Per Lipid Taxonomy. Other cataract 06/04/2008 07/07/2020 ADVANCE DIRECTIVE INFORMATION 02/20/2006 07/07/2020 Overview: Pt will check with , and get back to us. CHR ISCHEMIC HRT DIS NOS 04/15/200409/2019 Mixed dyslipidemia 01/08/2004 9 Overview: Per Lipid Taxonomy. HTN, goal below 140/90 01/08/200407/20 Calculus of kidney 01/08/2004 9 documented as of this encounter (statuses as of 04/11/2024) Immunizations Name Administration Dates Next Due COVID-19 mRNA, LNP-s, No Pre serve, 2-Dose Series (Moderna) 10/16/2020,09/18/2020 Pneumococcal Conjugate Vacc, 13 Valent (Prevnar) 08/18/2014 Pneumococcal Polysaccharide PPV23 (Pneumovax) 02/08/2016,02/25/2007 Season Influenza, Quad, PF, Adjuvanted, 65+ Yrs, IM (FLUAD) 06/10/2021 Seasonal Influenza, PF, 6 M & above, IM , (FluLaval or Fluzone) 04/24/2020,05/14/2019,05/09/2018,09/2016 Seasonal Influenza, Quadriva lent Hd (Fluzone Hd) 04/06/2023,04/11/2022,05/21/2021 Seasonal Influenza, Quadriva lent, No Preserve, IM 05/15/2016 Seasonal Influenza, Trivalen t, (IIV3), with Preserv, (Fluzone) 04/27/2015,04/16/2014,04/24/2013,09/2011,04/27/2011,05/10/2010,05/07/20 09,06/04/2008,06/24/2007,06/26/2006 04/16/2015 TDAP (age 10 and older)(Boostrix) 02/08/2016 TDAP, Age 7 and older, IM (Adacel) 02/20/2006 Varicella Zoster Vaccine (Adult) 05/07/2012 documented as of this encounter Social History Tobacco Use Types Packs/Day Years Used Date Smoking Tobacco: Former Cigarettes 1 30 0 03/11/1974 - 03/11/2004 Smokeless Tobacco: Never Tobacco Cessation:Counseling Given: Not Answered Alcohol Use Standard Drinks/Week Comments Not Currently 0 (1 standard drink = 0.6 oz pur e alcohol) PHQ-2 Answer Date Recorded PHQ Adult Total Score 0 04/13/2022 Hunger Vital Sign Answer Date Recorded Worried About Running Out of Food in the Last Ye ar Never true 05/27/2019 Ran Out of Food in the Last Year Never true 05/27/2019 Utilities Answer Date Recorded Do you have trouble paying y our heating, water, or electric bill? (Adult - for ages 18 years and over) Not on file 01/22/2024 Is your family able to pay t he heat, water, or electric bill? (Household - for ages 0-17 years) Not on file 01/22/2024 Does your family have access to good internet? (Household - for ages 0-17 years) Not on file 01/22/2024 Social Connections Answer Date Recorded How often do you feel lonely or isolated from those around you? (Adult - for ages 18 years and over) Not on file 01/22/2024 Sex and Gender Information Value Date Recorded Sex Assigned at Male 08/26/2019 9:58 AM EST Gender Identity Male 08/26/2019 9:58 AM EST Sexual Orientation Straight 08/26/2019 9: 58 AM EST Job Start Date Occupation Industry Not on file Not on file Not on file documented as of this encounter Last Filed Vital Signs Vital Sign Reading Time Taken Comments Blood Pressure 134/74 04/11/2024 11:48 AM EDT Pulse 60 04/11/2024 11:48 AM EDT Temperature 35.8 C (96.4 F) 04/11/2024 11:48 AM E DT Respiratory Rate - - Oxygen Saturation 91% 04/11/2024 11:48 AM EDT Inhaled Oxygen Concentration - - Weight 75.8 kg (167 lb) 04/11/2024 11:48 AM EDT Height - - Body Mass Index 23.62 03/26/2024 2:15 PM EDT documented in this encounter Functional Status Functional Status Response Date of Assess ment Are you deaf or do you have serious difficulty h earing? No 11/07/2021 Are you blind or do you have serious difficulty seeing, even when wearing glasses? No 11/07/2021 Do you have serious difficul ty walking or climbing stairs? (5 years old or older) No 11/07/2021 Do you have difficulty dress ing or bathing? (5 years old or older) No 11/07/2021 Because of a physical, menta l, or emotional condition, do you have difficulty doing errands alone such as visiting a doctor s office or shopping? (15 years old or older) No 11/08/19 Cognitive Status Response Date of Assessm ent Because of a physical, menta l, or emotional condition, do you have serious difficulty concentrating, remembering, or making decisions? (5 years old or older) No 11/07/2021 documented as of this encounter Progress Notes * Marquez Fiore MD - 04/11/2024 11:45 AM EDT KAREEM HUMPHREY MR # [id number] :1945 78-year-old male Date of consultation:10/28/2021 DIAGNOSIS: -anemia, appears to be iron deficiency, (multifactorial abnormal kidney function test, serum creatinine around 1.7- 2 mg/dL, recurrent UTI for the last few months, single bleeding angioectasia in thestomach. He had colonoscopy in December 2021, It showed severe inflammation in the left side of the colon. CURRENT TREATMENT: Currently he is not on oral iron replacement therapy. For the last 1 year and longer, hemoglobin level has remained normal range. PREVIOUS TREATMENT: He received Ferric Derisomaltose (Monoferric) x1 dose on 11/03/2021 and Venofer x4 between January 2022-03/07/2022). DIAGNOSTIC WORKUP: He is referred to hematology for evaluation of the anemia. I reviewed his medical records. His baseline hemoglobin is around 12 g/dL, has chronic renal insufficiency for the last few years, serum creatinine around 1.7- 2 mg/dL which is been stable. For the last few months he is having recurrent UTI, seen by urologist, had cystoscopic evaluation, found to have BPH, seen by ID, received 6 different antibiotic courses. He is scheduled for surgical intervention for BPH but recent blood workup showed further drop in the hemoglobin level -hemoglobin level was around 11.8 g/dL with normal WBC normal Platelet count, MCV 90 in May 2021 -hemoglobin dropped down to around 8.3 on 10/17/2021. Component Latest Ref Rng & Units 09/22/2020 12/14/2020 05/25/2021 10/17/2021 Iron 45 - 176 ug/dL 56 57 41 (L) 21 (L) Iron Binding Capacity 250 - 425 ug/dL 363 394 243 (L) 420 Transferrin Saturation Percent 15 - 55 % 15 14 (L) 17 5 (L) Ferritin 30 - 400 ng/mL 23 (L) 210 55 Folic Acid >4.5 ng/mL >20.0 19.1 >20.0 Vitamin B12 232-1,245 pg/mL 707 707 607 Had upper and lower GI endoscopic evaluation on 10/24/2021, no obvious cause identified. He is going for capsule endoscopy next week. He took oral iron about 2 weeks back, took It for 3 days but could not tolerated well, he had increasing reflux. He stop taking oral iron. He had not received IV iron in the past, no blood transfusion the past. OTHER IMPORTANT HISTORY: -he discontinue smoking habit in 2003 when he had Coronary artery disease -Coronary artery disease, S/P stent placement -he takes aspirin and Plavix. - recently he was started on omeprazole on 10/24/2021. -hypertension -BPH, he is on finasteride. -hyperlipidemia INTERVAL HISTORY: He has come the clinic for the follow-up, accompanied by his in the office. Overall he is doing well, currently he is not on Oral iron therapy,o nausea no vomiting, no cardiacor pulmonary symptoms, good performed status, current weight around 167 lb, no recent hospitalization. Somewhat unsteady when he walks around. No bleeding from the sites. Past Medical History: Diagnosis Date Abdominal aortic ectasia (HCC) 09/25/2014 Calculus of kidney 01/08/2004 Coronary artery disease involving seneca-cayuga coronary artery of seneca-cayuga heart without angina pectoris 07/07/2020 History of kidney stones 05/14/2019 Hx of actinic keratosis 05/12/2015 Efudex (05/24-hands/temples/cheeks) PVD (peripheral vascular disease) (HCC) Past Surgical History: Procedure Laterality Date COLONOSCOPY 2004 for repeat in 10y COLONOSCOPY, DIAGNOSTIC (RECTUM) 10/24/2021 hyperplastic polyp, diverticulosis / COLONOSCOPY FLEXIBLE PROXIMAL DIAGNOSTIC performed by Vadim Nichols MD at ENDOSCOPY [facility] COLONOSCOPY, DIAGNOSTIC (RECTUM) N/A 12/19/2021 [facility], colonoscopy , prep- fair, hemorrhoids, segmental severe inflammation in rectum, sigmoid, descending secondary to ischemic colitis / or c-diff colitis / biopsies ischemic colitis / repeat 3 to 4months to check healing EGD, FLEXIBLE, DIAGNOSTIC 10/24/2021 reflux esophagitis, duodenitis, gastritis / ESOPHAGOGASTRODUODENOSCOPY (EGD), FLEXIBLE, TRANSORAL, DIAGNOSTIC performed by Vadim Nichols MD at ENDOSCOPY [facility] EGD, FLEXIBLE, DIAGNOSTIC N/A 12/19/2021 [facility], EGD Normal scope / no specimens collected / repeat in small bowel enteroscopy 3 month for surveillance/ EGD, FLEXIBLE, DIAGNOSTIC 07/07/2022 single bleeding angioectasia stomach treated with APC/ESOPHAGOGASTRODUODENOSCOPY (EGD), FLEXIBLE, TRANSORAL, DIAGNOSTIC performed by Vadim Nichols MD at ENDOSCOPY [facility] FOOT/TOE SURGERY NEC REMOVE HEART VESSEL [place]QUE 03/2004 2 stents placed REPAIR INITIAL INGUINAL HERNIA REDUCIBLE AGE 5 OR MORE 07/1992 Hernia,Inguinal RMV MALG LSN TRK/ARM/LG .6-1CM Current Outpatient Medications Medication Sig Dispense Refill MULTIVITAMIN TABS OR one pill each day 100 0 oxygen IN GAS Use as directed 2 L/min(Oxygen) at bedtime . & with all and any sleep 1 Each 0 Fish Oil 1000 MG Oral Capsule Take 1 Capsule by mouth in the morning. 64 Capsule 0 Ferrous Sulfate 325 (65 Fe) MG Oral Tablet (Feosol) Take 1 Tablet by mouth every other day. (Patient not taking: Reported on 03/26/2024) 45 Tablet 3 Rosuvastatin Calcium 20 MG Oral Tablet (Crestor) TAKE 1 TABLET BY MOUTH DAILY 90 Tablet 3 Finasteride 5 MG Oral Tablet (Proscar) TAKE 1 TABLET BY MOUTH IN THE MORNING 90 Tablet 3 amLODIPine Besylate 2.5 MG Oral Tablet (Norvasc) TAKE 1 TABLET BY MOUTH TWICE DAILY 180 Tablet 3 Nitroglycerin 0.4 MG Sublingual Tablet Sublingual (Nitrostat) Place 1 Tablet under the tongue every5 minutes as needed for Pain, Chest. up to 3 doses in 15 minutes (Patient not taking: Reported on 03/26/2024) 25 Tablet 11 Atenolol 25 MG Oral Tablet (Tenormin) TAKE 1 TABLET BY MOUTH DAILY 90 Tablet 2 Clopidogrel Bisulfate 75 MG Oral Tablet (pLAVix) TAKE 1 TABLET BY MOUTH DAILY 90 Tablet 3 Fluorouracil 5 % External Cream (Efudex) Apply to lesions on face and hands two times a day for 3-4weeks. 40 g 0 Memantine HCl 5 MG Oral Tablet (Namenda) TAKE 1 TABLET BY MOUTH TWICE DAILY WITH MORNING AND EVENING MEALS 180 Tablet 3 Albuterol Sulfate HFA 108 (90 Base) MCG/ACT Inhalation Aerosol Solution Inhale 2 Puffs by mouth every 6 hours as needed for Shortness of Breath. (Patient not taking: Reported on 03/26/2024) LORazepam 0.5 MG Oral Tablet (Ativan) Take 1 tablet by mouth 30 min prior to the MRI. 1 Tablet 0 Omeprazole 40 MG Oral Capsule Delayed Release (PriLOSEC) Take 1 Capsule by mouth in the morning. 90Capsule 1 No current facility-administered medications for this visit. Family History Problem Relation Name Age of Onset Heart Disorder Mother s/p heart valve replacement Cancer Father age 72- brain cancer Heart Disorder Uncle (Unspecified) p. uncle- MD Social History Socioeconomic History Marital status: Spouse name: Dannie Number of children: 3 Years of education: Not on file Highest education level: Not on file Occupational History Occupation: retired - [employer] Tobacco Use Smoking status: Former Current packs/day: 0.00 Average packs/day: 1 pack/day for 30.0 years (30.0 ttl pk-yrs) Types: Cigarettes Start date: 03/11/1974 Quit date: 03/11/2004 Years since quittin.0 Smokeless tobacco: Never Vaping Use Vaping status: Never Used Substance and Sexual Activity Alcohol use: Not Currently Alcohol/week: 0.0 standard drinks of alcohol Drug use: No Sexual activity: Not on file Other Topics Concern Not on file Social History Narrative Lives with family Retired Social Determinants of Health Financial Resource Strain: Not on file Food Insecurity: No Food Insecurity (05/27/2019) Hunger Vital Sign Worried About Running Out of Food in the Last Year: Never true Ran Out of Food in the Last Year: Never true Transportation Needs: Not on file Social Connections: Unknown (01/22/2024) Social Connections How often do you feel lonely or isolated from those around you? (Adult - for ages 18 years and over): Not on file Housing Stability: Not on file On Exam: There were no vitals taken for this visit. Constitutional: Patient is alert, cooperative and oriented x 3. Well built man, Patient is in no acute distress. HEENT:No icterus, no pallor, Throat and pharynx normal. Sinuses are non-tender. Neck: Supple and without lymphadenopathy or masses. No JVD. No Palpable supraclavicular lymph nodes. Lungs: Clear to auscultation. Bilateral symmetric air entry. No wheezing or rhonchi. Cardiovascular: Normal heart sounds, no murmurs.Regular rate and rhythm. Abdomen: soft, nontender, no hepatomegaly, no splenomegaly. Bowel sounds are normal. Neurological: No gross focal neurological deficit; walks with a normal gait. Extremities: No finger clubbing, No cyanosis. No leg edema. Skin:: No skin rash. SPINE: No spinal or paraspinal tenderness. LABS: -WBC 5800 H&H of 8.3/27.3, MCV 87.5, Platelet 212,000 (10/28/2020) -serum creatinine level --> 1.7.(10/17/2021). Blood workup done on 01/05/2022: - WBC= 5300 and, H&H= 9.4/29.2, MCV 88, Platelet= 216,000 - Ferritin level --> 46 - Serum iron 160, TIBC 339, iron saturation 47%. He received IV iron in the form Monoferric x1 dose on 11/03/2021. Hemoglobin level has gone up from 8.7 --> 11.4 after the IV iron treatment. Biopsy from the colon (12/19/2021: ischemic colitis. Now hemoglobin level is around 9.4, ferritin level dropped down to around 46. Blood workup done on 03/30/2022: -WBC 6600, H&H of 13.9/40, Platelet 136,000. -Ferritin -> 295 -Serum iron: 79, TIBC 248, iron saturation 32%. He received IV iron in the form of Venofer x4 between 01/24/2022-03/07/2022). Blood workup done on 03/30/2023: -WBC 6900, H&H of 14.3/40.9, Platelet count [id number] -Ferritin level --> 380 -Serum iron 78, TIBC 239, iron saturation 33% -BUN/Creat: 23/1.4, normal LFT, Calcium 9.5. -BUN/Creat: 27/1.7, Calcium 9.3 ( 09/25/2023). Blood workup done on 03/27/2024: - WBC 6800, H&H of 14/41.5, platelet count of 146,000, MCV 90.6 - BUN/Creat: 29/1.6, normal LFT, calcium 9.2 - Ferritin level --> 506 - Serum iron: 68, TIBC 250, and saturation 27%. IMAGING: CT scan of the abdomen and pelvis (07/11/2021) - No splenomegaly, gallstone present, no intra-abdominal lymphadenopathy. -some fullness in the pancreatic head, incompletely evaluated. MRI of the pancreas on 03/12/2024: - Stable 2 cm cystic lesion in the pancreatic body. - Gallstone present - Abdominal aortic aneurysm measuring 3.7 x 4.1 cm. ASSESSMENT AND PLAN: 76-year-old male, who has baseline hemoglobin level around 12- 12.5 mg/dL, has chronic renal insufficiency for the last few years, serum creatinine around 1.7- 2 mg/dL, Recently he had recurrent UTI, found to have BPH, scheduled for surgical intervention but then found to have drop in hemoglobin level around 8.5 g/dL, normal MCV, could not tolerate oral iron treatment Ferritin level around 65, he had evidence of iron deficiency 2020 with ferritin level was around 23(09/2020). Normal Vitamin B12 and the folic acid. Overall anemia appears to be multifactorial: Iron deficiency, anemia kidney disease, recurrent UTI. He received IV iron in the form Ferric Derisomaltose (Monoferric) on 11/03/2021. Within 3 months, noticed to have once again iron deficiency, had endoscopic evaluation. Inflammation noted in left side of the colon. Seen by GI. He received IV iron the form Venofer x4, last treatment on 03/07/2022. I reviewed his recent blood workup findings, now he has a normal hemoglobin, no evidence of iron deficiency noted, currently he is off the oral iron therapy and the will continue to stay off the irontherapy He will continue follow-up with his primary-care provider, have every 6 monthly CBCD, Ferritin, iron profile checkup. I am planning to see him back in the clinic as needed. Thanks. Dr. Marquez Fiore Hem/Onc documented in this encounter Nursing Notes * Maria A Flores MED ASSIST - 04/11/2024 11:50 AM EDT Patient identifed by name and birthdate Do you have any concerns about pain management for today's visit? No Living Will or Advance Directive for Health Care as noted on the problem list. [facility] is a way you can talk to your provider on line through e-mail. Would you like to sign up? I can activate it for you? ALREADY ACTIVE Filed Vitals: 04/11/24 1148 BP: 134/74 Pulse: 60 Temp: 35.8 C (96.4 F) TempSrc: Tympanic SpO2: 91% Weight: 75.8 kg (167 lb) Patient was instructed to not get up on the exam table/exam chair until directed and assisted by their provider; patient is to remain seated in the chair/ wheelchair/ exam table/ exam chair for fall prevention and safety reasons. Patient is aware to have assistance to step down off exam table/exam chair with personnel. Patient voiced full comprehension of instructions. documented in this encounter Plan of Treatment Upcoming Encounters Date Type Department Care Team (Late st Contact Info) Description 05/06/2024 9:30 AM EDT Imaging Vascular Lab, [facility] [address] [place] [address] 05/06/2024 11:30 AM EDT Imaging Vascular Lab, [facility] [address] [place] [address] 05/14/2024 10:30 AM EDT Office Visit Vascular Surgery, [facility] [address] [place] [address] Jordan Abarca MD [address] [place] [address] 06/25/2024 9:00 AM EST Office Visit Dermatology [facility] [address] [place] [address] Cindy Sevilla PA-C [address] [place] [address] 06/26/2024 1:40 PM EST Office Visit Family Practice [facility] [address] [facility] [place] [address] Destiny Klein CRNP [address] [place] [address] 09/09/2024 10:00 AM EST Office Visit Nephrology, [facility] [address] [place] [address] Amira Butts MD [address] [facility] [place] [address] 12/30/2024 10:40 AM EDT Office Visit [facility] [address] [place] [phone] Margoth Wallace DO [address] [facility] [address] Scheduled Procedures Name Priority Associated Diagnoses Date/Ti me COLONOSCOPY FLEXIBLE PROXIMAL DIAGNOSTIC Recall Ischemic colitis (HCC) Gastric ulcer ESOPHAGOGASTRODUODENOSCOPY ( EGD), FLEXIBLE, TRANSORAL, DIAGNOSTIC Recall Ischemic colitis (HCC) Gastric ulcer Health Maintenance Due Date Last Done Comments Zoster Vaccines (2 of 3) 07/02/2012 05/07/2012 Adult Wellness Visit 08/26/2020 08/26/2019 Depression Screening 04/13/2023 04/13/2022 COVID-19 Vaccine ( season) 2024 05/10/2023, 05/02/2022, 10/16/2020, Additional history exists Influenza Vaccine (FLU shot) (#1) 2024 04/06/2023, 04/11/2022, 06/10/2021, Additional history exists Albumin/Creatinine Ratio 06/19/2024 023, 03/31/2022, 02/17/2022, Additional history exists CKD PHOS USE SMARTSET 35442 09/25/202409/07, 11/08/2021, 11/07/2021, Additional history exists GFR 09/27/2024 03/27/2024, 10/04, 09/25/2023, Additional history exists CKD HGB USE SMARTSET 49153 03/27/202503/27, 03/27/2024, 10/15/2023, Additional history exists DTap/Tdap Vaccines (3 - Td or Tdap) 02/07/2026 02/08/2016, 02/20/2006 Pneumococcal Vaccine: 65+ Years Completed 02/08/2016, 08/18/2014, 02/25/2007 HPV (Gardasil) Vaccine Aged Out No lo nger eligible based on patient's age to complete this topic Hepatitis B Vaccine Aged Out No longe r eligible based on patient's age to complete this topic MENINGOCOCCAL (MENACTRA/MENVEO) Aged Out No longer eligible based on patient's age to complete this topic documented as of this encounter Medical Devices Implanted Type Area Shop Superintendent Device Identifier Shelf Expiration Date Model / Serial / Lot Clip Quick 2.8mm 230cm - [id number] Implanted:Qty: 2 on 07/07/2022 by Vadim Nichols MD at [facility] [employer] 06/02/2024 [id number] / / documented as of this encounter Visit Diagnoses Diagnosis Iron deficiency anemia, unspecified iron deficiency anemia type- Primary documented in this encounter Advance Directives * Full Code (Latest Code Status on File) Date Activated Date Inactivated Comments 11/07/2021 11:02 PM 11/09/2021 7:20 PM This order re flects the patients wishes and were consensually agreed upon. Question Answer Comments Discussion of Advance Directives occurred with: Patient * Full Code Date Activated Date Inactivated Comments 11/07/2021 3:36 PM 11/07/2021 11:02 PM This order re flects the patients wishes and were consensually agreed upon. Care Teams [employer] [facility] [employer] Relationship Specialty Start Date End Date Jelani Wallace DO [address] [place] [address] PCP - General Family Medicine 09/30/18 documented as of this encounter
--- OUTSIDE RECORDS SUMMARY | 2024-05-15 12:33 | External Medical Summary | Summary of Care ---
Author Name Unknown Organization [facility] Address [address] [place] [address] Phone [phone] Care Team Providers Care Manager Cafe Name Role Phone Jelani Wallace Primary Care Provider Reason for Visit * Reason Comments Follow Up Encounter Details Date Type Department Care Team (Late st Contact Info) Description 04/18/2023 10:30 AM EDT Office Visit Vascular Surgery, [facility] [address] [place] [address] Js Jackson MD [address] [place] [address] Infrarenal abdominal aortic aneurysm (AAA) without rupture (HCC)*; PVD (peripheral vascular disease) (HCC); HAL (renal artery stenosis) (HCC) Allergies Active Allergy Reactions Criticality Noted Date [...] as of this encounter (statuses as of 05/06/2024) Medications Medication Sig Dispensed Refills Start Date End Date Status MULTIVITAMIN TABS OR one pill each day 100 0 4 Active oxygen IN GASIndications:N octurnal hypoxemia Use as directed 2 L/min(Oxygen) at bedtime . & with all and any sleep 1 Each 2 Active Fish Oil 1000 MG Oral CapsuleIndicatio ns:S/P angioplasty with stent,Mixed dyslipidemia Take 1 Capsule by mouth in the morning. 64 Capsule 3 Active Ferrous Sulfate 325 (65 Fe) MG Oral Tablet (Feosol)Indicati ons:Low serum iron Take 1 Tablet by mouth every other day. 45 Tablet 3 3 Active Additional Information Patient not taking.Reported on 03/26/2024 nitroglycerin (NITROSTAT) 0.4 MG SUBLIndications: Chronic ischemic heart disease one tab under tongue as needed for chest pain maximum 3 doses 25 Tab 5 9 06/18/20 23 Discontinued(Ref ill) Finasteride 5 MG Oral Tablet (Proscar) Take by mouth 1 Tablet in the morning. 90 Tablet 5 2 06/14/20 23 Discontinued Rosuvastatin Calcium 20 MG Oral Tablet (Crestor)Indicat ions:Dyslipidemi a, goal LDL below 100 TAKE 1 TABLET BY MOUTH DAILY 90 Tablet 3 2 04/29/20 23 Discontinued amLODIPine Besylate 2.5 MG Oral Tablet (Norvasc)Indicat ions:HTN, goal below 130/80 Take 1 Tablet by mouth 2 times a day. 180 Tablet 3 3 06/14/20 23 Discontinued Omeprazole 40 MG Oral Capsule Delayed Release (PriLOSEC) TAKE 1 CAPSULE BY MOUTH IN THE MORNING 90 Capsule 3 3 08/27/19 24 Discontinued Atenolol 25 MG Oral Tablet (Tenormin)Indica tions:HTN, goal below 140/90 TAKE 1 TABLET BY MOUTH DAILY 90 Tablet 2 3 08/28/19 24 Discontinued Clopidogrel Bisulfate 75 MG Oral Tablet (pLAVix)Indicati ons:Chronic ischemic heart disease,S/P angioplasty with stent TAKE 1 TABLET BY MOUTH DAILY 90 Tablet 2 3 11/21/19 24 Discontinued Memantine HCl 5 MG Oral Tablet (Namenda)Indicat ions:MCI (mild cognitive impairment),Gab ry loss Take 1 Tablet by mouth 2 times a day with morning and evening meals. 180 Tablet 1 3 07/28/20 23 Discontinued documented as of this encounter (statuses as of 05/06/2024) Active Problems Problem Noted Date Diagnosed Date [...] neuropathy 06/28 Coronary artery disease invo lving lower [place] coronary artery of [place] heart without angina pectoris 07/07/2020 Hypertensive kidney [...] as of this encounter (statuses as of 05/06/2024) Resolved Problems Problem Noted Date Diagnosed Date Resolved Date Unspecified dementia, unspec ified severity, without behavioral disturbance, psychotic disturbance, mood disturbance, and anxiety 01/31/2024 02/01/2024 Anemia in stage 4 chronic kidney disease 09/19/2022 06/25/2023 GI bleed 11/07/2021 11/08/2021 Acute blood loss anemia 11/07/2021 0412/2021 HARLAN (acute kidney injury) 11/07/2021 Syncope and [...] as of this encounter (statuses as of 05/06/2024) Immunizations Name Administration Dates Next Due COVID-19 mRNA, LNP-s, No Pre serve, 2-Dose Series (Moderna) 10/16/2020,09/18/2020 Pneumococcal Conjugate Vacc, 13 Valent (Prevnar) 08/18/2014 Pneumococcal Polysaccharide PPV23 (Pneumovax) 02/08/2016,02/25/2007 Season Influenza, Quad, PF, Adjuvanted, 65+ Yrs, IM (FLUAD) 06/10/2021 Seasonal Influenza Vac., MDV , IM, 0.5 mL (Fluzone) 04/27/2015,04/16/2014,04/24/2013,09/2011,04/27/2011,05/10/2010,05/07/20,06/04/2008,06/24/2007,06/26/2006 04/16/2015 Seasonal Influenza, PF, 6 M & above, IM , (FluLaval or Fluzone) 04/24/2020,05/14/2019,05/09/2018,09/2016 Seasonal Influenza, Quadriva lent Hd (Fluzone Hd) 04/06/2023,04/11/2022,05/21/2021 Seasonal Influenza, Quadriva lent, No Preserve, IM 05/15/2016 TDAP (age 10 and older)(Boostrix) 02/08/2016 TDAP, Age 7 and older, IM (Adacel) 02/20/2006 Varicella Zoster Vaccine (Adult) 05/07/2012 documented as of this encounter Social History Tobacco Use Types Packs/Day Years Used Date Smoking Tobacco: Former Cigarettes 1 30 0 03/11/1974 - 03/11/2004 Smokeless Tobacco: Never Tobacco Cessation:Counseling Given: No Alcohol Use Standard Drinks/Week Comments Not Currently [...] Sign Reading Time Taken Comments Blood Pressure 134/68 04/18/2023 10:28 AM EDT Pulse 61 04/18/2023 10:28 AM EDT Temperature - - Respiratory Rate - - Oxygen Saturation - - Inhaled Oxygen Concentration - - Weight 78.1 kg (172 lb 3.2 oz) 04/18/2023 10:28 AM EDT Height - - Body Mass Index 24.36 12/22/2022 10:38 AM EDT documented in this encounter Functional Status [...] (15 years old or older) No 11/08/19 22 Cognitive Status Response Date of Assessm ent Because of a physical, menta l, or emotional condition, do you have serious difficulty concentrating, remembering, or making decisions? (5 years old or older) No 11/07/2021 documented as of this encounter Progress Notes * Manda Pak PA-C - 04/18/2023 10:30 AM EDT Date of Service: 04/18/23 Farooq Alvarez is a 78 year old male. Referring Physician: MD Vinicio Gardner MD (Cardiology) Chief Complaint: Returns to the clinic for routine surveillance of diffuse vascular disease. Since last year's visit he has done well He had recent left 3rd toe surgery HPI: Patient is a reformed smoker who was initially seen for PAD back in 07/2016. Subsequently found to have a small infrarenal aortic aneurysm. ABDOMINAL AORTIC ANEURYSM: Patient denies any symptoms related to AAA. Patient denies new abdominal pain, flank pain and back pain. Size of aneurysm is 3.3 cm as detected by renal ultrasound. PERIPHERAL VASCULAR DISEASE: Reports bilateral leg pain with ambulation of 1-2 blocks, equal bilaterally. No rest pain or ulcerations. Reports h/o nocturnal cramps, currently resolved. RENAL ARTERY STENOSIS Renal function Creat 1.4, GFR 54, 03/30/2022 Renal ultrasound was completed on 10/25/2017 suggesting multiple left renal parenchymal cysts, largest in the upper pole measures 4.0 cm. No hydronephrosis or nephrolithiasis. This was followed by a renal artery duplex demonstrating >60% RRA stenosis with pike velocity of244 and intrinsic disease to left kidney with RI of .83. Current Outpatient Medications Medication Sig Dispense Refill MULTIVITAMIN TABS OR one pill each day 100 0 nitroglycerin (NITROSTAT) 0.4 MG SUBL one tab under tongue as needed for chest pain maximum 3 doses(Patient not taking: Reported on 03/16/2023) 25 Tab 5 oxygen IN GAS Use as directed 2 L/min(Oxygen) at bedtime . & with all and any sleep 1 Each 0 Finasteride 5 MG Oral Tablet (Proscar) Take by mouth 1 Tablet in the morning. 90 Tablet 5 Rosuvastatin Calcium 20 MG Oral Tablet (Crestor) TAKE 1 TABLET BY MOUTH DAILY 90 Tablet 3 Fish Oil 1000 MG Oral Capsule Take 1 Capsule by mouth in the morning. 64 Capsule 0 amLODIPine Besylate 2.5 MG Oral Tablet (Norvasc) Take 1 Tablet by mouth 2 times a day. 180 Tablet 3 Ferrous Sulfate 325 (65 Fe) MG Oral Tablet (Feosol) Take 1 Tablet by mouth every other day. 45 Tablet 3 Omeprazole 40 MG Oral Capsule Delayed Release (PriLOSEC) TAKE 1 CAPSULE BY MOUTH IN THE MORNING 90 Capsule 3 Atenolol 25 MG Oral Tablet (Tenormin) TAKE 1 TABLET BY MOUTH DAILY 90 Tablet 2 Clopidogrel Bisulfate 75 MG Oral Tablet (pLAVix) TAKE 1 TABLET BY MOUTH DAILY 90 Tablet 2 Memantine HCl 5 MG Oral Tablet (Namenda) Take 1 Tablet by mouth 2 times a day with morning and evening meals. 180 Tablet 1 No current facility-administered medications for this visit. Review of patient's allergies indicates: Allergen Reactions Amoxicillin Rash Other reaction(s): Rash Linezolid Other (Please comment) Dizziness, Chest pain - occurred after patient took 4th dose, resolved after stopping (reported by patient's ) Other reaction(s): DIZZINESS, CHEST PAIN AFTER 4TH DOSE. Monoferric [Ferric Derisomaltose] Nausea/vomiting and Other (Please comment) reports pt threw up and passed out the evening of monoferric infusion and ended up in hospitalfor 5 days Sulfa Antibiotics Hives Other reaction(s): Hives, nausea Other Allergy (See Comments) Sulfa Drugs Patient Active Problem List Diagnosis Code History of tobacco use Z87.891 S/P angioplasty with stent Z95.820 HTN, goal below 130/80 I10 Abdominal aortic ectasia ([facility]) I77.811 HAL (renal artery stenosis) ([facility]) I70.1 Abdominal aortic aneurysm (AAA) without rupture ([facility]) I71.40 Atherosclerosis of leg with intermittent claudication ([facility]) I70.219 PVD (peripheral vascular disease) ([facility]) I73.9 Acquired hammer toe deformity of lesser toe of right foot M20.41 Hypertensive kidney disease with stage 3b chronic kidney disease ([facility]) I12.9, N18.32 Coronary artery disease involving lower [place] coronary artery of [place] heart without angina pectoris I25.10 Neuropathic ulcer of right foot with fat layer exposed ([facility]) L97.512 Idiopathic peripheral autonomic neuropathy G90.09 Dyslipidemia, goal LDL below 70 E78.5 Other iron deficiency anemias D50.8 Syncope and collapse R55 Myocardial injury I5A Enlarged prostate with lower urinary tract symptoms (LUTS) N40.1 Streptococcal bacteremia R78.81, B95.5 Anemia D64.9 Nocturnal hypoxemia G47.34 Anemia in stage 4 chronic kidney disease (HCC) N18.4, D63.1 Memory loss R41.3 Past Medical History: Diagnosis Date Abdominal aortic ectasia ([facility]) 09/25/2014 Calculus of kidney 01/08/2004 Coronary artery disease involving [place] coronary artery of [place] heart without angina pectoris 07/07/2020 History of kidney stones 05/14/2019 Hx of actinic keratosis 05/12/2015 Efudex (05/24-hands/temples/cheeks) PVD (peripheral vascular disease) ([facility]) Past Surgical History: Procedure Laterality Date COLONOSCOPY 2004 for repeat in 10y COLONOSCOPY, DIAGNOSTIC (RECTUM) 10/24/2021 hyperplastic polyp, diverticulosis / COLONOSCOPY FLEXIBLE PROXIMAL DIAGNOSTIC performed by Vadim Nichols MD at [facility] COLONOSCOPY, DIAGNOSTIC (RECTUM) N/A 12/19/2021 [facility], colonoscopy , prep- fair, hemorrhoids, segmental severe inflammation in rectum, sigmoid, descending secondary to ischemic colitis / or c-diff colitis / biopsies ischemic colitis / repeat 3 to 4months to check healing EGD, FLEXIBLE, DIAGNOSTIC 10/24/2021 reflux esophagitis, duodenitis, gastritis / ESOPHAGOGASTRODUODENOSCOPY (EGD), FLEXIBLE, TRANSORAL, DIAGNOSTIC performed by Vadim Nichols MD at [facility] EGD, FLEXIBLE, DIAGNOSTIC N/A 12/19/2021 [facility], EGD Normal scope / no specimens collected / repeat in small bowel enteroscopy 3 month for surveillance/ EGD, FLEXIBLE, DIAGNOSTIC 07/07/2022 single bleeding angioectasia stomach treated with APC/ESOPHAGOGASTRODUODENOSCOPY (EGD), FLEXIBLE, TRANSORAL, DIAGNOSTIC performed by Vadim Nichols MD at [facility] FOOT/TOE SURGERY NEC REMOVE HEART VESSEL PLAQUE 03/2004 2 stents placed REPAIR INITIAL INGUINAL HERNIA REDUCIBLE AGE 5 OR MORE 07/1992 Hernia,Inguinal RMV MALG LSN TRK/ARM/LG .6-1CM Family History Problem Relation Age of Onset Heart Disorder Mother s/p heart valve replacement Cancer Father age 72- brain cancer Heart Disorder Uncle (Unspecified) p. uncle- [place] Social History Socioeconomic History Marital status: Spouse name: Dannie Number of children: 3 Years of education: Not on file Highest education level: Not on file Occupational History Occupation: retired - [place] Tobacco Use Smoking status: Former Packs/day: 1.00 Years: 30.00 Pack years: 30.00 Types: Cigarettes Quit date: 03/11/2004 Years since quittin.0 Smokeless tobacco: Never Vaping Use Vaping Use: Never used Substance and Sexual Activity Alcohol use: Not Currently Alcohol/week: 0.0 standard drinks Drug use: No Sexual activity: Not on file Other Topics Concern Not on file Social History Narrative Lives with family Retired Social Determinants of Health Financial Resource Strain: Not on file Food Insecurity: Not on file Transportation Needs: Not on file Physical Activity: Not on file Stress: Not on file Social Connections: Not on file Intimate Partner Violence: Not on file Housing Stability: Not on file REVIEW OF SYSTEMS: Constitutional: Denies fever/chills Eyes: Denies amaurosis fugax. Cardiovascular: Denies chest pain, h/o CAD s/p PCI/Stenting 03/09, 06/10 & 09/11. Respiratory: Denies shortness of breath. Gastrointestinal: Denies melena, denies bright red blood per rectum. Genitourinary: Denies hematuria. Skin: Denies ulcers. Neurological:Denies TIA, denies CVA. GENERAL MULTI-SYSTEM PHYSICAL EXAM: VITAL SIGNS: There were no vitals taken for this visit. GENERAL MULTI-SYSTEM PHYSICAL EXAM: GENERAL: Normal grooming habits, no acute distress and appears stated age. NECK: No masses. RESPIRATORY: Respiratory effort normal and breath sounds CTA. CARDIOVASCULAR: RRR, no heart murmur, no edema. GASTROINTESTINAL: No tenderness, protuberant and abdominal aorta not palpable. SKIN: no rash, no induration, and no dependent rubor. R 2nd toe amp site healed. Left 3rd toe bloody bandage PSYCHIATRIC: Orientation to time, place and person normal and recent and remote memory normal. EYES: Conjunctivae normal. NEUROLOGIC: Motor function grossly intact. PULSE SCALE: Carotid Right:----Bruit: Yes Left:----Bruit: No Radial Right: 3 Left: 3 Femoral Right: 2 Left: 2 Popliteal Right: 2 Left: 2 Dorsalis Pedis Right: 0 Left: 0 Posterior Tibial Right: 0 Left: 0 PULSE SCALE: 4=Aneurysmal; 3=Normal; 2=Diminished; 1=Barely Palpable; 0=Absent DIAGNOSTIC STUDIES: 04/12/2023 Aortic Duplex: 4.2 cm AAA 04/12/2023 FILIPE: 0.81/0.67 04/12/2023 Renal Duplex: RRA 210/179/105/112, RRI 0.72, right kidney length 10.6 cm. LRA 91/83/88/79,LRI 0.77, left kidney length 11.3, L renal cyst noted 04/12/2023 Carotid Duplex: BRYAN 70/17, LICA 102/26, ante verts The above diagnostic images were directly visualized and independently interpreted by me on 04/18/2023 with results as above 03/30/2022 Aortic Duplex: 3.4 cm AAA, RCIA 0.8 cm, LCIA 0.73 03/30/2022 FILIPE 0.68/0.67 03/30/2022 Renal Duplex Aorta 46, RRA 227/112/103/88, R RI 0.74, R kidney size 9.3 cm. LRA 90/115/96/72, L RI 0.76, L kidney size 12.3 cms 10/11/2020 Renal Duplex Aorta 44, RRA Ortiz 180/134/44/42, R RI .76, Right Kidney 9.7 cm. LRA Ortiz 65/78/59/67, L RI .81, Left Kidney 14.5 cm. 10/11/2020; Location of Study: [facility]; Modality: duplex; AAA measures 3.3 cm in greatest transverse dimension. 10/11/2020 FILIPE .70/.68. 06/02/20: FILIPE: .81/.59 09/18/19: FILIPE: 0.91/0.70 09/18/19: renal duplex: RRA 230/109/75/103, R RI 0.73, R kidney 10.9 cm LRA 118/129/73/70, L RI 0.83 cm, L kidney 12.8 cm 05/29/2019: aortic duplex: 3.3 cm AAA 07/08/18 FILIPE: .83/.59 07/08/18: Aortic duplex: 3.2 cm AAA, R TRAN .97 cm, L TRAN .91 cm. 07/08/18: Renal duplex: RRA 253/122/78 RI 77 length 10.2 cm, LRA 101/76/89 RI 75 Length 12.3 cm. 10/26/2017 Renal Artery Duplex RRA Ortiz 1.02, 2.44, 1.11 and 2.32, R RI .78, right kidney measured 9.3 cm. LRA .83, 1.08, 1.09 and .90, L RI .83 and left kidney measured 11.4 cm. 10/25/2017 Renal Ultrasound: 1. Multiple left renal parenchymal cysts, largest in the upper pole measures 4.0 cm. No hydronephrosis or nephrolithiasis. 2. Normal right kidney. 3. Enlarged prostate. 4. Distal abdominal aortic aneurysm slightly increased in transverse dimension as discussed. 08/09/17 FILIPE: .84/.58 05/15/2016 FILIPE .89/.67. 05/15/2016; Location of Study: [facility]; Modality: duplex; AAA measures 3.0 cm in greatest transverse dimension. 08/26/2014; Location of Study: [facility]; Modality: duplex; AAA measures 3.0 cm in greatest transverse dimension. 09/20/2011; Location of Study: [facility]; Modality: duplex; AAA measures 3.0 cm in greatest transverse dimension. 02/04/2007; Location of Study: [facility]; Modality: duplex; AAA measures 3.0 cm in greatest transverse dimension. LABS Creatinine Results: Lab Results Component Value Date/Time CREATININE - [facility] 1.4 (H) 03/30/2023 10:20 AM CREATININE - [facility] 1.4 (H) 09/19/2022 02:02 PM CREATININE - [facility] 1.3 (H) 09/13/2022 12:31 PM CREATININE - [facility] 1.9 (H) 07/07/2020 08:54 AM CREATININE - [facility] 1.8 (H) 04/07/2020 07:48 AM CREATININE - [facility] 1.7 (H) 09/29/2019 08:06 AM CREATININE, RANDOM URINE - [facility] 139 03/31/2022 02:08 PM CREATININE, RANDOM URINE - [facility] 107 02/17/2022 09:54 AM CREATININE, RANDOM URINE - [facility] 166 05/10/2021 10:29 AM CREATININE, RANDOM URINE - [facility] 141 04/07/2020 08:01 AM CREATININE, RANDOM URINE - [facility] 195 07/16/2019 12:29 PM CREATININE, RANDOM URINE - [facility] 106 03/25/2019 07:25 AM CREATININE-OUTSIDE LAB 1.74 (A) 10/07/2021 12:00 AM CREATININE-OUTSIDE LAB 1.36 07/12/2017 12:00 AM CREATININE-OUTSIDE LAB 1.27 08/10/2014 12:00 AM Lab Results Component Value Date/Time LDL CHOLESTEROL (CALCULATED) - [facility] 62 03/29/2021 09:59 AM LDL CHOLESTEROL (CALCULATED) - [facility] 68 03/18/2020 07:49 AM LDL CHOLESTEROL (DIRECT MEASURE) - [facility] 46 03/30/2023 10:20 AM LDL CHOLESTEROL (DIRECT MEASURE) - [facility] NOT APPLICABLE 03/18/2020 07:49 AM LDL CHOLESTEROL (DIRECT MEASURE) - [facility] 28 09/29/2010 07:57 AM LDL CHOLESTEROL (DIRECT MEASURE) - [facility] RESULTS RECHECKED 09/29/2010 07:57 AM Hemoglobin AIC Results: Lab Results Component Value Date/Time HEMOGLOBIN A1C - [facility] 5.7 (H) 11/08/2021 05:19 AM HEMOGLOBIN A1C - [facility] 5.4 03/29/2021 09:59 AM HEMOGLOBIN A1C - [facility] 5.6 09/22/2020 08:02 AM HEMOGLOBIN A1C - [facility] 5.6 05/06/2008 07:58 AM HEMOGLOBIN A1C - [facility] 5.3 11/29/2007 07:33 AM HEMOGLOBIN A1C - [facility] 5.8 02/25/2007 08:51 AM The above clinical lab tests were reviewed by me on 04/18/23 IMPRESSIONS: Recent left 3rd toe surgery Low grade stable right renal artery stenosis BP controlled. CKD III, stable Left kidney intrinsic disease with stable RI Asymptomatic 4.2 cm, up from 3.4 cm AAA in 2021 PVD with multifactorial claudication, no rest pain or ulcerations. 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 Less than 50% B/L carotid stenosis, asymptomatic CAD s/p PCI/Stents. (7 total, last 2004) HTN. Dyslipidemia. Remote history of tobacco use, quit 2003. PLAN: The patient was counseled regarding the pathophysiology and natural history of renal artery stenosis, as well as the interventional and noninterventional therapeutic options. Stable RRA stenosis with controlled HTN on 2 antihypertensives and stable stage 3 CKD. Will continue medical management and routine surveillance. The patient was counseled regarding the pathophysiology and natural h/o AAA, as well as the signs of rupture and the need to initiate emergency medical attention in that situation. AAA up to 4.2 cm but still below threshold for intervention, ~ 5.5 cm for males Recommend AAA screening for family members. Annual surveillance with duplex. The patient was counseled regarding the pathophysiology and natural history of peripheral vascular disease, as well as the interventional and noninterventional therapeutic options. Clinic presentation would suggest multifactorial claudication. Recommend f/u with PCP to explore work up for contributing non-vasculogenic etiologies for leg symptoms, i.e. OA. Continue medical management and routine surveillance. Contiue daily ASA 81 mg for platelet inhibition On Plavix for CAD/stent patency Continue statin therapy Crestor 20 mg daily for treatment of HLD F/U in 1 [facility] at [facility], or sooner prn. Will need aortic duplex and FILIPE completed at [facility] 1 week prior to clinic visit. Will not have to repeat carotid duplex prior to next visit The patient was seen and examined with MD Manda Peters MPAS, PA-C Section of Vascular and Endovascular Surgery [address] [address] I have reviewed the advanced practitioner documentation and agree. I saw and evaluated the patient on date of service referenced in note and have performed the following medically appropriate historyand/or exam: . He feels good No issues Explained to patient and his that if the left 3rd toe does not heal they should immediately return to vascular to seek further attention One year with filipe and aortic duplex Js Jackson MD Section of Vascular [place] [address] [phone] documented in this encounter Miscellaneous Notes * Addendum Note - Manda Pak PA-C - 05/06/2024 12:16 PM EDTAddended by: MANDA PAK on: 05/06/2024 12:16 PM Modules accepted: Level of Service documented in this encounter Plan of Treatment Upcoming Encounters Date Type Department Care Team (Late st Contact Info) Description 05/14/2024 10:30 AM EDT Office Visit Vascular Surgery, [facility] [address] [place] [address] Jordan Abarca MD [address] [place] [id number] 06/12/2024 1:40 PM EST Office Visit Nephrology, [facility] [address] [place], [place] [address] Amira Butts MD [address] [place] [address] 06/25/2024 9:00 AM EST Office Visit Dermatology [facility] [address] [place] [address] Cindy Sevilla PA-C [address] [facility] [place] [address] 06/26/2024 1:40 PM EST Office Visit Family Practice [facility] [address] [facility] [place] [address] Destiny Klein CRNP [address] [place] [address] 12/30/2024 10:40 AM EDT Office Visit Sleep Disorders Ctr [facility] [address] [facility] [place] [phone] Margoth Wallace DO [address] [place] [address] Pending Results Name Type Priority Associated Diagnoses Date /Time VASC ANKLE BRACHIAL INDICES WITHOUT PPG (PAD) Medical Imaging Routine PVD (peripheral vascular disease) (HCC) 05/06/2024 10:02 AM EDT Scheduled Procedures Name Priority Associated Diagnoses Date/Ti [...] Additional history exists CKD PHOS USE SMARTSET 60861 09/25/2024 02/, 11/08/2021, 11/07/2021, Additional history exists GFR 09/27/2024 03/27/2024, 10/04, 09/25/2023, Additional history exists CKD HGB USE SMARTSET 03915 03/27/202503/27, 03/27/2024, 10/15/2023, Additional history exists DTap/Tdap [...] this encounter Medical Devices Implanted Type Area District Sales Leader Device Identifier Shelf Expiration Date Model / Serial / Lot Clip Quick 2.8mm 230cm - [id number] Implanted:Qty: 2 on 07/07/2022 by Vadim Nichols MD at [facility] [employer] 06/02/2024 [id number] / / documented as of this encounter Procedures Procedure Name Priority Date/Time Associated Diagnosis Comments VASC AORTIC DUPLEX EVAL-COMPLETE Routine 05/06/2024 10:51 AM EDT Infrarenal abdominal aortic aneurysm (AAA) without rupture (HCC) documented in this encounter Results * VASC AORTIC DUPLEX EVAL-COMPLETE (05/06/2024 10:51 AM EDT) Anatomical Region Laterality Modality Abdomen, Vascular Ultrasound Impressions 05/06/2024 12:15 PM EDT : There is evidence of a 4.1 cm abdominal aortic aneurysm. Color Doppler imaging demonstrates flow consistent with a patent lumen at and distal to the aortic aneurysm. Narrative 05/06/2024 12:15 PM EDT VASCULAR LAB RESULTS DATE OF EXAM: 05/06/24 PRESENTING CONDITIONS: 4.2 cm AAA This is an interpretation of an exam performed at [facility]. PHYSICIAN REPORT: Abdominal Aorta Duplex Examination. Immediately before proceeding with the vascular lab procedure reported below, the identity of the patient, the correct exam and the correct procedural site were verified. Ontiveros scale, color flow and spectral doppler were performed for this examination. Spectral Doppler demonstrates evidence of normal waveforms of the abdominal aorta. Peak systolic velocity measurements of the aorta are 59.2 centimeters per second. The maximum diameter of the proximal abdominal aorta was not visualized. The maximum diameter of the mid abdominal aorta measures 3.4 centimeters by 3.4 centimeters. The maximum diameter of the distal abdominal aorta measures 4.1 centimeters by 4.1 centimeters. The maximum diameter of the proximal right common iliac artery measures 0.7 centimeters by 0.7 centimeters. The maximum diameter of the proximal left common iliac artery measures 1.0 centimeters by 1.0 centimeters. Js Jackson MD RAD VASCULAR documented in this encounter Visit Diagnoses Diagnosis Infrarenal abdominal aortic aneurysm (AAA) without rupture (HCC)- Primary PVD (peripheral vascular disease) (HCC) Peripheral vascular disease, unspecified HAL (renal artery stenosis) (HCC) Atherosclerosis of renal artery documented in this encounter Advance Directives * [...] and were consensually agreed upon. Care Teams Manager Cafe Relationship Specialty Start Date End Date Jelani Wallace DO [address] [address] PCP - General Family Medicine 09/30/18 documented as of this encounter
--- OUTSIDE RECORDS SUMMARY | 2024-05-15 12:33 | External Medical Summary | Summary of Care ---
Author Name Unknown Organization [facility] Address [address] [place] [address] Phone [phone] Care Team Providers Care Public Affairs Officer Name Role Phone Rodrigo Jelani Taylorjoana Primary Care Provider Encounter Details Date Type Department Care Team (Late st Contact Info) Description 01/14/2024 Telephone Dermatology [facility] [place] [address] [place] [address] Cindy Sevilla PA-C [address] [place] [address] Allergies Active Allergy Reactions Criticality Noted Date [...] as of this encounter (statuses as of 04/14/2024) Medications Medication Sig Dispensed Refills Start Date End Date Status MULTIVITAMIN TABS OR one pill each day 100 0 05/03/2004 Active oxygen IN GASIndications:Noc turnal hypoxemia Use as directed 2 L/min(Oxygen) at bedtime . & with all and any sleep 1 Each 01/16/2022 Active Fish Oil 1000 MG Oral CapsuleIndications :S/P angioplasty with stent,Mixed dyslipidemia Take 1 Capsule by mouth in the morning. 64 Capsule 09/08/2022 Active Ferrous Sulfate 325 (65 Fe) MG Oral Tablet (Feosol)Indication s:Low serum iron Take 1 Tablet by mouth every other day. 45 Tablet 3 10/11/2022 Active Additional Information Patient not taking.Reported on 03/26/2024 Rosuvastatin Calcium 20 MG Oral Tablet (Crestor)Indicatio ns:Dyslipidemia, goal LDL below 100 TAKE 1 TABLET BY MOUTH DAILY 90 Tablet 3 04/29/2023 Active Finasteride 5 MG Oral Tablet (Proscar) TAKE 1 TABLET BY MOUTH IN THE MORNING 90 Tablet 3 06/14/2023 Active amLODIPine Besylate 2.5 MG Oral Tablet (Norvasc)Indicatio ns:HTN, goal below 130/80 TAKE 1 TABLET BY MOUTH TWICE DAILY 180 Tablet 3 06/14/2023 Active Nitroglycerin 0.4 MG Sublingual Tablet Sublingual (Nitrostat)Indicat ions:Coronary artery disease involving [place] coronary artery of [place] heart without angina pectoris Place 1 Tablet under the tongue every 5 minutes as needed for Pain, Chest. up to 3 doses in 15 minutes 25 Tablet 11 06/18/2023 Active Additional Information Patient not taking.Reported on 03/26/2024 Atenolol 25 MG Oral Tablet (Tenormin)Indicati ons:HTN, goal below 140/90 TAKE 1 TABLET BY MOUTH DAILY 90 Tablet 2 08/28/2023 Active Clopidogrel Bisulfate 75 MG Oral Tablet (pLAVix)Indication s:Chronic ischemic heart disease,S/P angioplasty with stent TAKE 1 TABLET BY MOUTH DAILY 90 Tablet 3 11/21/2023 Active Fluorouracil 5 % External Cream (Efudex) Apply to lesions on face and hands two times a day for 3-4 weeks. 40 g 12/06/2023 Active Memantine HCl 5 MG Oral Tablet (Namenda)Indicatio ns:MCI (mild cognitive impairment),Memory loss TAKE 1 TABLET BY MOUTH TWICE DAILY WITH MORNING AND EVENING MEALS 180 Tablet 3 12/26/2023 Active Omeprazole 40 MG Oral Capsule Delayed Release (PriLOSEC) TAKE 1 CAPSULE BY MOUTH IN THE MORNING 90 Capsule 1 08/27/2023 4 Discontinue d(Refill) documented as of this encounter (statuses as of 04/14/2024) Active Problems Problem Noted Date Diagnosed Date [...] neuropathy 06/28 Coronary artery disease invo lving [place] coronary artery of [place] heart without angina pectoris 07/07/2020 Hypertensive kidney [...] as of this encounter (statuses as of 04/14/2024) Resolved Problems Problem Noted Date Diagnosed Date Resolved Date Unspecified dementia, unspec ified severity, without behavioral disturbance, psychotic disturbance, mood disturbance, and anxiety 01/31/2024 02/01/2024 Anemia in stage 4 chronic kidney disease 09/19/2022 06/25/2023 GI bleed 11/07/2021 11/08/2021 Acute blood loss anemia 11/07/2021 04/0 12/2021 HARLAN (acute kidney injury) 11/07/2021 Syncope and [...] as of this encounter (statuses as of 04/14/2024) Immunizations Name Administration Dates Next Due COVID-19 [...] 0 [birth year]/11/1974 - 03/11/2004 Smokeless Tobacco: Never Alcohol Use Standard Drinks/Week Comments Not Currently [...] on file documented as of this encounter Functional Status Functional Status Response [...] No 11/07/2021 documented as of this encounter Miscellaneous Notes * Telephone Encounter - Rajni Chambers OSA - 01/14/2024 2:05 PM EDT Explained to pt that Cindy is only a PA so the Dr. Dunne that showed up on the bill is the doctor that supervises Cindy and signs off on everything she does. Also explained that since there was a biopsy done and was sent to pathology that there was doctor in [place] that read it to determine the results of it. That was the other doctor that showed up on the bill and yes, $300 was approximately what is charged for things sent to pathology * Telephone Encounter - Valentine Florian OSA - 01/14/2024 11:56 AM EDT Nigelraul, PTs Dannie Alvarez, called to question charges from a visit her had on December 05, 2023 with Cindy Sevilla. Specifically why doctors are added to the visit that day that the PT didn't see. She asloasked about a $300 charge on the visit that day. Please reach out to them at the Phone number on file to discuss EOB from that day Thank you documented in this encounter Plan of Treatment Upcoming Encounters Date Type Department Care Team (Late st Contact Info) Description 05/06/2024 9:30 AM EDT [facility] [address] 05/06/2024 11:30 AM EDT Imaging Vascular Lab, [address] [facility] [place] [address] 05/14/2024 10:30 AM EDT Office Visit Vascular Surgery, [facility] 132 [facility] [place] [address] Jordan Abarca MD [address], [place] [id number] 06/25/2024 9:00 AM EST Office [facility] [address] Cindy Sevilla PA-C [address] [place] [address] 06/26/2024 1:40 PM EST Office Visit Family Practice [facility] [address] [facility] [place] [address] Destiny Klein CRNP [address] [place] [address] 09/09/2024 10:00 AM EST Office Visit Nephrology, [facility] [address] [facility] [place] [address] Amira Butts MD [address] [facility] [place] [address] 12/30/2024 10:40 AM EDT Office Visit Sleep Disorders Ctr [facility] [address] [facility] [place] [place] [id number] Margoth Wallace DO [address] [place] [address] Scheduled Procedures Name Priority Associated Diagnoses Date/Ti [...] 04/11/2022, 06/10/2021, Additional history exists Albumin/Creatinine Ratio 06/19/20242 023, 03/31/2022, 02/17/2022, Additional history exists CKD PHOS USE SMARTSET 35860 09/25/202409/07, 11/08/2021, 11/07/2021, Additional history exists GFR 09/27/2024 03/27/2024, 10/04, 09/25/2023, Additional history exists CKD HGB USE SMARTSET 08786 03/27/202503/27, 03/27/2024, 10/15/2023, Additional history exists DTap/Tdap [...] this encounter Medical Devices Implanted Type Area Chief Commercial Officer Device Identifier Shelf Expiration Date Model / Serial / Lot Clip Quick 2.8mm 230cm - [id number] Implanted:Qty: 2 on 07/07/2022 by Vadim Nichols MD at ENDOSCOPY [facility] [employer]omach [employer] 06/02/2024 [id number] / / documented as of this encounter Advance Directives * Full Code [...] and were consensually agreed upon. Care Teams Public Affairs Officer Relationship Specialty Start Date End Date Jelani Wallace DO [address] [address] PCP - General Family Medicine 09/30/18 documented as of this encounter
--- OUTSIDE RECORDS SUMMARY | 2024-05-15 12:34 | External Medical Summary ---
Author Name Unknown Address Unknown Organization K01:[facility] - [address] [place] [address] Laboratory Report Ordering Provider Test Date Status SELENE MCGREGOR 03/27/2024 09:30:04 Final Observation Date Value Abnormality Reference (Units ) Status Ferritin 03/27/2024 09:30:04 506 Above high normal 30 -400 (ng/mL) Final Performing Location [facility] - [address] [place] [address]
--- OUTSIDE RECORDS SUMMARY | 2024-05-15 12:34 | External Medical Summary ---
Author Name Unknown Address Unknown Organization K01:[facility] - [address] [place] [address] Laboratory Report Ordering Provider Test Date Status KORY WALLACE 03/27/2024 09:30:04 Final Observation Date Value Abnormality Reference (Units ) Status Triglyceride 03/27/2024 09:30:04 258 Above high normal <=174 (mg/dL) Final Triglyceride Reference Range s (mg/dL):
<150 Acceptable
150-174 Borderline high
175-499 High
>=500 Very high Cholesterol 03/27/2024 09:30:04 121 <200 (mg /dL) Final Total Cholesterol Reference Ranges (mg/dL):
<200 Desirable
200-239 Borderline high
>=240 High HDL 03/27/2024 09:30:04 30 Below low normal >39 (mg/dL) Final HDL Cholesterol Reference Ra nges (mg/dL):
>=60 High (Desirable)
<50 Low (Undesirable) For Females
<40 Low (Undesirable) For Males NON-HDL CHOLESTEROL 03/27/2024 09:30:04 91 <=159 (mg/dL) Final Non-HDL Cholesterol Referenc e Range (mg/dL):
<100 Target level for high risk ASCVD patient
<130 Optimal for general population
130-159 Near optimal for general population
160-189 Borderline High
190-219 High
>=220 Very High Performing Location [facility] - [address] [place] [address]
--- OUTSIDE RECORDS SUMMARY | 2024-05-15 12:34 | External Medical Summary | Summary of Care ---
Author Name Unknown Organization [facility] Address [address] [place] [address] Phone [phone] Care Team Providers Care Dermatological Surgeon Name Role Phone Pedro Pablo Wallacecele Taylorjoana Primary Care Provider Reason for Visit * Reason Comments Follow Up Patient presents in office today for a 6m follow-up visit. 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; Other iron deficiency anemias; Memory loss; Insomnia, unspecified type; RLS (restless legs syndrome); PLMD (periodic limb movement disorder); REM sleep behavior disorder Allergies Active Allergy Reactions Criticality Noted Date [...] as of this encounter (statuses as of 03/27/2024) Medications Medication Sig Dispensed Refills Start Date [...] Tablet Sublingual (Nitrostat)Indicat ions: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 1 Tablet 02/14/2024 Active Omeprazole 40 MG Oral Capsule Delayed Release (PriLOSEC) Take 1 Capsule by mouth in the morning. 90 Capsule 1 03/26/2024 Active Omeprazole 40 MG Oral Capsule Delayed Release (PriLOSEC) TAKE 1 CAPSULE BY MOUTH IN THE MORNING 90 Capsule 1 08/27/2023 4 Discontinue d(Refill) documented as of this encounter (statuses as of 03/27/2024) Active Problems Problem Noted Date Diagnosed Date Insomnia 03/26/2024 Pneumonia of lower lobe due to infectious organi sm 03/26/2024 RLS (restless legs syndrome) 03/26/2024 PLMD (periodic limb movement disorder) 4 REM sleep behavior disorder 03/26/2024 Cystic mass of pancreas 03/15/2024 Overview: Unchanged Mar 2024 - 1 year f/u recommended Memory loss 09/19/2022 Nocturnal hypoxemia 12/13/2021 Anemia 11/08/2021 Myocardial injury 11/07/2021 Enlarged prostate with lower urinary tract sympt oms (LUTS) 11/07/2021 Other iron deficiency anemias 10/28/2021 Dyslipidemia, goal LDL below 70 08/24/2021 Idiopathic peripheral autonomic neuropathy 06/28 Coronary artery disease invo lving ute mountain coronary artery of ute mountain heart without angina pectoris 07/07/2020 Hypertensive kidney [...] as of this encounter (statuses as of 03/27/2024) Resolved Problems Problem Noted Date Diagnosed Date [...] as of this encounter (statuses as of 03/27/2024) Immunizations Name Administration Dates Next Due COVID-19 mRNA, LNP-s, No Pre serve, 2-Dose Series (Moderna) 10/16/2020,09/18/2020 Pneumococcal Conjugate Vacc, 13 Valent (Prevnar) 08/18/2014 Pneumococcal Polysaccharide PPV23 (Pneumovax) 02/08/2016,02/25/2007 Season Influenza, Quad, PF, Adjuvanted, 65+ Yrs, IM (FLUAD) 06/10/2021 Seasonal Influenza, PF, 6 M & above, IM , (FluLaval or Fluzone) 04/24/2020,05/14/2019,05/09/2018,1009/2016 Seasonal Influenza, Quadriva lent Hd (Fluzone Hd) 04/06/2023,04/11/2022,05/21/2021 Seasonal Influenza, Quadriva lent, No Preserve, IM 05/15/2016 Seasonal Influenza, Split, I IV3, With Preserve, Inj 04/27/2015,04/16/2014,04/24/2013,09/2011,04/27/2011,05/10/2010,05/07/20 09,06/04/2008,06/24/2007,06/26/2006 04/16/2015 TDAP (age 10 and [...] Sign Reading Time Taken Comments Blood Pressure 130/78 03/26/2024 2:15 PM EDT Pulse 52 03/26/2024 2:15 PM EDT Temperature - - Respiratory Rate 16 03/26/2024 2:15 PM EDT Oxygen Saturation 95% 03/26/2024 2:15 PM EDT Inhaled Oxygen Concentration - - Weight 75.8 kg (167 lb) 03/26/2024 2:15 PM EDT Height 179.1 cm (5' 10.5") 03/26/2024 2:15 PM ED T Body Mass Index 23.62 03/26/2024 2:15 PM [...] as of this encounter Progress Notes * Destiny Klein CRNP - 03/26/2024 2:23 PM EDT Follow up Family Medicine Visit CC: Chief Complaint Patient presents with Follow Up Patient presents in office today for a 6m follow-up visit. History of Present Illness: Farooq Alvarez is a 78 year old male presenting today for follow up. He is accompanied by his . 01/28/2024- CHEST Xray bibasilar opacities CTA no clot but bibasilar atelectasis 02/02--2023- Syncope and seen in ED CTA brain- multiple intercranial stenosis CTA neck- 30% stenosis on right carotid Left CLEAR cHEST X RAY NEGATIVE Treated for pna in January 2024. He was treated with steroid, abx. Feels like still has dry cough but no wheezing or sob. Denies choking or difficulty swallowing. Denies excessive dust exposure. Hx of smoking- 1957 to 2005 x 1 ppd. Recent ultrasound showing gallbladder stones MRI of pancreas showing cyst and recommend repeat in 1 year. Denies anginal symptoms. He does note ongoing insomnia. Wakes up around 3 am. Seems worse in recent months. Hx of Rem sleep behavior disorder, RLS and PLMD. Recent labs in ED showing HGB back down to 10.2 He has follow up with hematology. 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 07/07/2020 History of kidney stones 05/14/2019 Hx of actinic keratosis 05/12/2015 Efudex (05/24-hands/temples/cheeks) PVD (peripheral vascular disease) (HCC) Past Surgical History: Procedure Laterality Date COLONOSCOPY 2004 for repeat in 10y COLONOSCOPY, DIAGNOSTIC (RECTUM) 10/24/2021 hyperplastic polyp, diverticulosis / COLONOSCOPY FLEXIBLE PROXIMAL DIAGNOSTIC performed by Vadim Nichols MD at [facility] COLONOSCOPY, DIAGNOSTIC (RECTUM) N/A 12/19/2021 [facility], colonoscopy , prep- fair, hemorrhoids, segmental severe inflammation in rectum, sigmoid, descending secondary to ischemic colitis / or c-diff colitis / biopsies ischemic colitis / repeat 3 to 4months to check healing EGD, FLEXIBLE, DIAGNOSTIC 10/24/2021 reflux esophagitis, duodenitis, gastritis / ESOPHAGOGASTRODUODENOSCOPY (EGD), FLEXIBLE, TRANSORAL, DIAGNOSTIC performed by Vadim Nichols MD at [facility] EGD, FLEXIBLE, DIAGNOSTIC N/A 12/19/2021 [facility], EGD Normal scope / no specimens collected / repeat in small bowel enteroscopy 3 month for surveillance/ EGD, FLEXIBLE, DIAGNOSTIC 07/07/2022 single bleeding angioectasia stomach treated with APC/ESOPHAGOGASTRODUODENOSCOPY (EGD), FLEXIBLE, TRANSORAL, DIAGNOSTIC performed by Vadim Nichols MD at [facility] FOOT/TOE SURGERY NEC REMOVE HEART VESSEL PLAQUE 03/2004 2 stents placed REPAIR INITIAL INGUINAL HERNIA REDUCIBLE AGE 5 OR MORE 07/1992 Hernia,Inguinal RMV MALG LSN TRK/ARM/LG .6-1CM Current Outpatient Medications Medication Sig Dispense Refill LORazepam 0.5 MG Oral Tablet (Ativan) Take 1 tablet by mouth 30 min prior to the MRI. 1 Tablet 0 Memantine HCl 5 MG Oral Tablet (Namenda) TAKE 1 TABLET BY MOUTH TWICE DAILY WITH MORNING AND EVENING MEALS 180 Tablet 3 Fluorouracil 5 % External Cream (Efudex) Apply to lesions on face and hands two times a day for 3-4weeks. 40 g 0 Clopidogrel Bisulfate 75 MG Oral Tablet (pLAVix) TAKE 1 TABLET BY MOUTH DAILY 90 Tablet 3 Atenolol 25 MG Oral Tablet (Tenormin) TAKE 1 TABLET BY MOUTH DAILY 90 Tablet 2 amLODIPine Besylate 2.5 MG Oral Tablet (Norvasc) TAKE 1 TABLET BY MOUTH TWICE DAILY 180 Tablet 3 Finasteride 5 MG Oral Tablet (Proscar) TAKE 1 TABLET BY MOUTH IN THE MORNING 90 Tablet 3 Rosuvastatin Calcium 20 MG Oral Tablet (Crestor) TAKE 1 TABLET BY MOUTH DAILY 90 Tablet 3 Fish Oil 1000 MG Oral Capsule Take 1 Capsule by mouth in the morning. 64 Capsule 0 oxygen IN GAS Use as directed 2 L/min(Oxygen) at bedtime . & with all and any sleep 1 Each 0 MULTIVITAMIN TABS OR one pill each day 100 0 Albuterol Sulfate HFA 108 (90 Base) MCG/ACT Inhalation Aerosol Solution Inhale 2 Puffs by mouth every 6 hours as needed for Shortness of Breath. (Patient not taking: Reported on 03/26/2024) Omeprazole 40 MG Oral Capsule Delayed Release (PriLOSEC) TAKE 1 CAPSULE BY MOUTH IN THE MORNING (Patient not taking: Reported on 03/26/2024) 90 Capsule 1 Nitroglycerin 0.4 MG Sublingual Tablet Sublingual (Nitrostat) Place 1 Tablet under the tongue every5 minutes as needed for Pain, Chest. up to 3 doses in 15 minutes (Patient not taking: Reported on 03/26/2024) 25 Tablet 11 Ferrous Sulfate 325 (65 Fe) MG Oral Tablet (Feosol) Take 1 Tablet by mouth every other day. (Patient not taking: Reported on 03/26/2024) 45 Tablet 3 No current facility-administered medications for this visit. [...] nausea Other Allergy (See Comments) Sulfa Drugs Most Recent Immunizations Administered Date(s) Administered COVID-19 mRNA, LNP-s, No Preserve, 2-Dose Series (Moderna) 10/16/2020 Pneumococcal Conjugate Vacc, 13 Valent (Prevnar) 08/18/2014 Pneumococcal Polysaccharide PPV23 (Pneumovax) 02/08/2016 Season Influenza, Quad, PF, Adjuvanted, 65+ Yrs, IM (FLUAD) 06/10/2021 Seasonal Influenza, PF, 6 M & above, IM , (FluLaval or Fluzone) 04/24/2020 Seasonal Influenza, Quadrivalent Hd (Fluzone Hd) 04/06/2023 Seasonal Influenza, Quadrivalent, No Preserve, IM 05/15/2016 Seasonal Influenza, Split, IIV3, With Preserve, Inj 04/27/2015 TDAP (age 10 and older)(Boostrix) 02/08/2016 TDAP, Age 7 and older, IM (Adacel) 02/20/2006 Varicella Zoster Vaccine (Adult) 05/07/2012 Review of Systems: Review of Systems Constitutional: Positive for fatigue. Negative for fever. Respiratory: Positive for cough. Negative for shortness of breath and wheezing. Cardiovascular: Negative for chest pain and palpitations. Gastrointestinal: Positive for constipation. Negative for abdominal pain, blood in stool, diarrhea,nausea and vomiting. Neurological: Negative for dizziness and syncope. Balance disorder Psychiatric/Behavioral: Positive for sleep disturbance. Physical Exam: BP 130/78 | Pulse 52 | Resp 16 | Ht 1.791 m (5' 10.5") | Wt 75.8 kg (167 lb) | SpO2 95% | BMI 23.62kg/m | BSA 1.94 m Physical Exam Vitals and nursing note reviewed. Constitutional: Appearance: Normal appearance. HENT: Head: Normocephalic. Eyes: Pupils: Pupils are equal, round, and reactive to light. Cardiovascular: Rate and Rhythm: Normal rate and regular rhythm. Pulmonary: Effort: Pulmonary effort is normal. Breath sounds: Normal breath sounds. Abdominal: General: Bowel sounds are normal. Palpations: Abdomen is soft. There is no mass. Tenderness: There is no abdominal tenderness. Musculoskeletal: General: Normal range of motion. Cervical back: Normal range of motion. Neurological: General: No focal deficit present. Mental Status: He is alert and oriented to person, place, and time. Psychiatric: Mood and Affect: Mood normal. Behavior: Behavior normal. Thought Content: Thought content normal. Judgment: Judgment normal. Assessment and Plan: 1. Pneumonia of lower lobe due to infectious organism, unspecified laterality S/p treatment with abx and steroid in January Hx of nodular opacities on CT in 2016 CTA 01/28/2024 BIBASILAR atelectasis, bronchial wall thickening Chest x ray with bibasilar opacities - XR CHEST 2 VIEWS 2. Insomnia, unspecified type Ongoing insomnia Worse recently Trouble staying asleep ? If RLS due to low ferritin- his labs are upcoming 3. History of tobacco use [id number]- x 1 ppd- 50 pack years No longer qualifies for LDCT 4. 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 5. Other iron deficiency anemias Hgb now at 10.2 He has follow up with hematology soon 5. Memory loss On namenda- his reports she notices 6. RLS (restless legs syndrome) ? LOW FERRITIN 7. PLMD (periodic limb movement disorder) SUSPECTED RELATED TO INSOMNIA 8. REM sleep behavior disorder ON MELATONIN I have advised the patient to call our office incase of any worsening or new symptoms. I spent a total of 40-54 minutes (exact time 45 mins) on the date of service in preparation, delivery, and documentation of the care provided to Farooq Alvarez excluding any time spent in the performance of separately billed services. Jessa, ESTRADA, PATRICIA [facility] documented in this encounter Nursing Notes * Nkechi Mcdaniel MED ASSIST - 03/26/2024 2:13 PM EDT The patient has been properly identified by confirmation of name and date of . Chief Complaint Patient presents with Follow Up Patient presents in office today for a 6m follow-up visit. documented in this encounter Plan of Treatment Upcoming Encounters Date Type Department Care Team (Late st Contact Info) Description 04/11/2024 11:45 AM EDT Office Visit Hematology/Oncology [facility] [address] [place] [address] Marquez Fiore MD [address] [place] [address] 05/06/2024 9:30 AM EDT Imaging Vascular Lab, [facility] 2nd Floor, [place] [address] [facility] [place] [address] 05/06/2024 11:30 AM EDT Imaging Vascular Lab, [facility] 2nd Floor, [place] [address] [facility] [place] [address] 05/14/2024 10:30 AM EDT Office Visit Vascular Surgery, [facility] [address] [facility] [place] [address] Jordan Abarca MD [address] [place] [address] 06/25/2024 9:00 AM EST Office Visit Dermatology [facility] [address] [place] [address] Cindy Sevilla PA-C [address] [place] [address] 06/26/2024 1:40 PM EST Office Visit Family Practice [facility] [address] [facility] [place] [address] Destiny Klein CRNP 132 [facility] [place] [address] 09/09/2024 10:00 AM EST Office Visit Nephrology, [facility] [address] [place], [place] [address] Amira Butts MD [address] [place] [address] 12/30/2024 10:40 AM EDT Office Visit [facility] [address] [facility] [place] [phone] Margoth Wallace DO [address] [facility] [place] [address] Scheduled Procedures Name Priority Associated Diagnoses Date/Ti me COLONOSCOPY FLEXIBLE PROXIMAL DIAGNOSTIC Recall Ischemic colitis (HCC) Gastric ulcer ESOPHAGOGASTRODUODENOSCOPY ( EGD), FLEXIBLE, TRANSORAL, DIAGNOSTIC Recall Ischemic colitis (HCC) Gastric ulcer Health Maintenance Due Date Last Done Comments Zoster Vaccines (2 of 3) 07/02/2012 05/07/2012 Adult Wellness Visit 08/26/2020 08/26/2019 Depression Screening 04/13/2023 04/13/2022 COVID-19 Vaccine ( season) 2023 05/10/2023, 05/02/2022, 10/16/2020, Additional history exists Influenza Vaccine (FLU shot) (#1) 2024 04/06/2023, 04/11/2022, 06/10/2021, Additional history exists GFR 04/16/2024 10/15/2023, 09/07, 03/30/2023, Additional history exists Albumin/Creatinine Ratio 06/19/2024 023, 03/31/2022, 02/17/2022, Additional history exists CKD PHOS USE SMARTSET 85852 09/25/202409/07, 11/08/2021, 11/07/2021, Additional history exists CKD HGB USE SMARTSET 59432 10/14/202410/14, 10/15/2023, 03/30/2023, Additional history exists DTaP,Tdap,and Td Vaccines (3 - Td or Tdap) 02/07/2026 [...] this encounter Medical Devices Implanted Type Area Opening Machine Cleaner Device Identifier Shelf Expiration Date Model / Serial / Lot Clip Quick 2.8mm 230cm - [id number] Implanted:Qty: 2 on 07/07/2022 by Vadim Nichols MD at [facility] [employer] 06/02/2024 [id number] / / documented as of this encounter Procedures Procedure Name Priority Date/Time Associated Diagnosis Comments XR CHEST 2 VIEWS Routine 03/26/2024 3:17 PM EDT Pneumonia of lower lobe due to infectious organism, unspecified laterality documented in this encounter Results * XR CHEST 2 VIEWS (03/26/2024 3:17 PM EDT) Anatomical Region Laterality Modality Chest Digital Radiogra phy 03/26/2024 5:24 PM EDT Impressions 03/26/2024 5:22 PM EDT IMPRESSION No evidence of acute cardiopulmonary disease. Narrative 03/26/2024 5:22 PM EDT EXAM XR CHEST 2 VIEWS-03/26/2024 3:17 pm HISTORY Follow-up pneumonia COMPARISON Chest radiograph 11/07/2021. TECHNIQUE PA and lateral views of the chest are examined. FINDINGS Previously noted right lung airspace opacities have resolved. No focal airspace consolidation. There is no pleural effusion. The pulmonary vasculature and cardiomediastinal silhouette are within normal limits. No acute osseous finding. Procedure Note Antony Trivedi MD - 03/26/2024 EXAM XR CHEST 2 VIEWS-03/26/2024 3:17 pm HISTORY Follow-up pneumonia COMPARISON Chest radiograph 11/07/2021. TECHNIQUE PA and lateral views of the chest are examined. FINDINGS Previously noted right lung airspace opacities have resolved. No focalairspace consolidation. There is no pleural effusion. The pulmonaryvasculature and cardiomediastinal silhouette are within normal limits. Noacute osseous finding. IMPRESSION IMPRESSION No evidence of acute cardiopulmonary disease. 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 Care Teams Dermatological Surgeon Relationship Specialty Start Date End Date Jelani Wallace DO [address] [place] [address] PCP - General Family Medicine 09/30/18 documented as of this encounter
--- OUTSIDE RECORDS SUMMARY | 2024-05-15 12:34 | External Medical Summary | Summary of Care ---
Author Name Unknown Organization [facility] Address [address] [place] [address] Phone [phone] Care Team Providers Care Agriculture Department Chair Name Role Phone Leticia Wallacer Thang Primary Care Provider Reason for Visit * Reason Onset Date Comments Appointment 03/10/2024 Encounter Details Date Type Department Care Team (Late st Contact Info) Description 03/10/2024 Telephone Radiology [address], [place] 132 [facility] [place] [address] Yamilex Schaefer TECH Appointment Allergies Active Allergy Reactions Criticality Noted Date [...] as of this encounter (statuses as of 03/10/2024) Medications Medication Sig Dispensed Refills Start Date End Date Status MULTIVITAMIN TABS OR one pill each day 100 0 05/03/2004 Active oxygen IN GASIndications:Noctu rnal hypoxemia Use as directed 2 L/min(Oxygen) at bedtime . & with all and any sleep 1 Each 01/16/2022 Active Fish Oil 1000 MG Oral CapsuleIndications:S /P angioplasty with stent,Mixed dyslipidemia Take 1 Capsule by mouth in the morning. 64 Capsule 09/08/2022 Active Ferrous Sulfate 325 (65 Fe) MG Oral Tablet (Feosol)Indications: Low serum iron Take 1 Tablet by mouth every other day. 45 Tablet 3 10/11/2022 Active Rosuvastatin Calcium 20 MG Oral Tablet (Crestor)Indications :Dyslipidemia, goal LDL below 100 TAKE 1 TABLET BY MOUTH DAILY 90 Tablet 3 04/29/2023 Active Finasteride 5 MG Oral Tablet (Proscar) TAKE 1 TABLET BY MOUTH IN THE MORNING 90 Tablet 3 06/14/2023 Active amLODIPine Besylate 2.5 MG Oral Tablet (Norvasc)Indications :HTN, goal below 130/80 TAKE 1 TABLET BY MOUTH TWICE DAILY 180 Tablet 3 06/14/2023 Active Nitroglycerin 0.4 MG Sublingual Tablet Sublingual (Nitrostat)Indicatio ns:Coronary artery disease involving [place] coronary artery of [place] heart without angina pectoris Place 1 Tablet under the tongue every 5 minutes as needed for Pain, Chest. up to 3 doses in 15 minutes 25 Tablet 11 06/18/2023 Active Atenolol 25 MG Oral Tablet (Tenormin)Indication s:HTN, goal below 140/90 TAKE 1 TABLET BY MOUTH DAILY 90 Tablet 2 08/28/2023 Active Omeprazole 40 MG Oral Capsule Delayed Release (PriLOSEC) TAKE 1 CAPSULE BY MOUTH IN THE MORNING 90 Capsule 1 08/27/2023 Active Clopidogrel Bisulfate 75 MG Oral Tablet (pLAVix)Indications: Chronic ischemic heart disease,S/P angioplasty with stent TAKE 1 TABLET BY MOUTH DAILY 90 Tablet 3 11/21/2023 Active Fluorouracil 5 % External Cream (Efudex) Apply to lesions on face and hands two times a day for 3-4 weeks. 40 g 12/06/2023 Active Memantine HCl 5 MG Oral Tablet (Namenda)Indications :MCI (mild cognitive impairment),Memory loss TAKE 1 TABLET BY MOUTH TWICE DAILY WITH MORNING AND EVENING MEALS 180 Tablet 3 12/26/2023 Active Albuterol Sulfate HFA 108 (90 Base) MCG/ACT Inhalation Aerosol Solution Inhale 2 Puffs by mouth every 6 hours as needed for Shortness of Breath. 01/28/2024 Active LORazepam 0.5 MG Oral Tablet (Ativan)Indications: Situational anxiety Take 1 tablet by mouth 30 min prior to the MRI. 1 Tablet 02/14/2024 Active documented as of this encounter (statuses as of 03/10/2024) Active Problems Problem Noted Date Diagnosed Date Memory loss 09/19/2022 Nocturnal hypoxemia 12/13/2021 Anemia 11/08/2021 Syncope and collapse 11/07/2021 Myocardial injury 11/07/2021 Enlarged prostate with lower urinary tract sympt oms (LUTS) 11/07/2021 Streptococcal bacteremia 11/07/2021 Other iron deficiency anemias 10/28/2021 Dyslipidemia, goal LDL below 70 08/24/2021 Idiopathic peripheral autonomic neuropathy 06/28 Coronary artery disease invo lving [place] coronary artery of [place] heart without angina pectoris 07/07/2020 Hypertensive kidney [...] as of this encounter (statuses as of 03/10/2024) Resolved Problems Problem Noted Date Diagnosed Date Resolved Date Unspecified dementia, unspec ified severity, without behavioral disturbance, psychotic disturbance, mood disturbance, and anxiety 01/31/2024 02/01/2024 Anemia in stage 4 chronic kidney disease 09/19/2022 06/25/2023 GI bleed 11/07/2021 11/08/2021 Acute blood loss anemia 11/07/2021 04/0 12/2021 HARLAN (acute kidney injury) 11/07/2021 Aspiration pneumonia 11/07/2021 022 Acute respiratory failure with hypoxia 11/07/2021 11/08/2021 [...] BCC 02/2012, BCC L posterior auricular x , 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, SCC L sideburn [...] as of this encounter (statuses as of 03/10/2024) Immunizations Name Administration Dates Next Due COVID-19 [...] No 11/07/2021 documented as of this encounter Plan of Treatment Upcoming Encounters Date Type Department Care Team (Late st Contact Info) Description 03/12/2024 9:30 AM EDT Imaging Radiology [facility] 1[facility] [address] [place] [address] 03/26/2024 2:20 PM EDT Office Visit Family Practice [facility] [address] [place] [address] Destiny Klein CRNP [address] [place] [address] 04/11/2024 11:45 AM EDT Office Visit Hematology/Oncology [facility] [address] [place], [place] [phone] Marquez Fiore MD 200 [facility] [place], [place] [address] 05/06/2024 9:30 AM EDT Imaging Vascular Lab, [address] 132 [place] [address] 05/06/2024 11:30 AM EDT Imaging Vascular Lab, [address] 132 [place] [address] 05/14/2024 10:30 AM EDT Office Visit Vascular Surgery, [facility] 132 [place] [address] Jordan Abarca MD [address] [place] [address] 06/25/2024 9:00 AM EST Office Visit Dermatology [facility] 200 [facility] [place], [place] [address] Cindy Sevilla PA-C 200 [facility] [place], [place] [address] 09/09/2024 10:00 AM EST Office Visit Nephrology, [facility] 200 [facility] [place], [place] [address] Amira Butts MD 200 [facility] [place], [place] [address] 12/30/2024 10:40 AM EDT Office Visit Sleep Disorders Ctr [facility] 132 [place] [phone] Margoth Wallace DO 132 [facility] [address] Scheduled Procedures Name Priority Associated Diagnoses Date/Ti me COLONOSCOPY FLEXIBLE PROXIMAL DIAGNOSTIC Recall Ischemic colitis (HCC) Gastric ulcer ESOPHAGOGASTRODUODENOSCOPY ( EGD), FLEXIBLE, TRANSORAL, DIAGNOSTIC Recall Ischemic colitis (HCC) Gastric ulcer Health Maintenance Due Date Last Done Comments Zoster Vaccines (2 of 3) 07/02/2012 05/07/2012 Depression Screening 04/13/2023 04/13/2022 COVID-19 Vaccine ( season) 2023 05/10/2023, 05/02/2022, 10/16/2020, Additional history exists Influenza Vaccine (FLU shot) (#1) 2024 04/06/2023, 04/11/2022, 06/10/2021, Additional history exists GFR 04/16/2024 10/15/2023, 09/07, 03/30/2023, Additional history exists Albumin/Creatinine Ratio 06/19/2024 023, 03/31/2022, 02/17/2022, Additional history exists CKD PHOS USE SMARTSET 00779 09/25/202409/07, 11/08/2021, 11/07/2021, Additional history exists CKD HGB USE SMARTSET 80953 10/14/202410/14, 10/15/2023, 03/30/2023, Additional history exists DTaP,Tdap,and [...] this encounter Medical Devices Implanted Type Area Radio Interference Expert Device Identifier Shelf Expiration Date Model / Serial / Lot Clip Quick 2.8mm 230cm - [id number] Implanted:Qty: 2 on 07/07/2022 by Vadim Nichols MD at ENDOSCOPY [facility] [employer] 06/02/2024 [id number] / / documented as [...] and were consensually agreed upon. Care Teams Agriculture Department Chair Relationship Specialty Start Date End Date Jelani Wallace DO [address] [place] [address] PCP - General Family Medicine 09/30/18 documented as of this encounter
--- OUTSIDE RECORDS SUMMARY | 2024-05-15 12:34 | External Medical Summary ---
Author Name Unknown Address Unknown Organization K01:[facility] - [address] [place] [address] Laboratory Report Ordering Provider Test Date Status KORY WALLACE 03/27/2024 09:30:04 Final Observation Date Value Abnormality Reference (Units ) Status LDL, (direct) 03/27/2024 09:30:04 49 <=129 (mg/dL) Final LDL Cholesterol Reference Ra nges (mg/dL):
<70 Target level for high risk ASCVD patient
<100 Optimal for general population
100-129 Near optimal for general population
130-159 Borderline high
160-189 High
>=190 Very high Performing Location [facility] - [address] [place] [address]
--- OUTSIDE RECORDS SUMMARY | 2024-05-15 12:34 | External Medical Summary | Summary of Care ---
Author Name Unknown Organization [facility] Address [address] [place] [address] Phone [phone] Care Team Providers Care Software Verification Engineer Name Role Phone Jelani Wallacejoana Primary Care Provider Reason for Visit * Reason Comments Outpatient Testing Encounter Details Date Type Department Care Team (Late st Contact Info) Description 03/27/2024 9:30 AM EDT Laboratory Laboratory [facility] [place] [address] [place] [phone] [place] [address] [place] [address] Dyslipidemia, goal LDL below 70; Iron deficiency anemia, unspecified iron deficiency anemia type Allergies Active Allergy Reactions Criticality Noted Date [...] Tablet Sublingual (Nitrostat)Indicati ons:Coronary artery disease involving [place] coronary artery of [place] heart without angina pectoris Place 1 Tablet [...] neuropathy 06/28 Coronary artery disease invo lving [place] coronary artery of [place] heart without angina pectoris 07/07/2020 Hypertensive kidney [...] 04/11/2024 11:45 AM EDT Office Visit Hematology/Oncology [facility] 200 [facility] [place] [phone] Marquez Fiore MD 200 [facility] [place] [address] 05/06/2024 9:30 AM EDT Imaging Vascular Lab, [facility] 2nd [facility] 132 [facility] [place] [address] 05/06/2024 11:30 AM EDT Imaging Vascular Lab, [address] 132 [facility] [place] [address] 05/14/2024 10:30 AM EDT Office Visit Vascular Surgery, [facility] 132 [facility] [place] [address] Jordan Abarca MD [address] [place] [address] 06/25/2024 9:00 AM EST Office Visit Dermatology [facility] [address] [place] [address] Cindy Sevilla PA-C 200 [facility] [place] [address] 06/26/2024 1:40 PM EST Office Visit Family Practice [facility] 132 [facility] [place] [address] Destiny Klein CRNP [address] [place] [address] 09/09/2024 10:00 AM EST Office Visit Nephrology, [facility] 200 [facility] [place], [place] [address] Amira Butts MD 200 [facility] [place] [address] 12/30/2024 10:40 AM EDT Office Visit Sleep Disorders Ctr [facility] [place] [address] [place] [phone] Margoth Wallace DO [address] [place] [address] Pending Results Name Type Priority Associated Diagnoses Date /Time LIPID PANEL WITH DIRECT LDL IF TG IS HIGH Lab Routine Dyslipidemia, goal LDL below 70 03/27/2024 9:30 AM EDT COMPREHENSIVE METABOLIC PANEL Lab STAT Iron deficiency anemia, unspecified iron deficiency anemia type 03/27/2024 9:30 AM EDT FERRITIN Lab STAT Iron deficiency anemia, unspecified iron deficiency anemia type 03/27/2024 9:30 AM EDT IRON SCREEN, INCLUDING TIBC Lab STAT Iron deficiency anemia, unspecified iron deficiency anemia type 03/27/2024 9:30 AM EDT Scheduled Procedures Name Priority Associated [...] Additional history exists CKD PHOS USE SMARTSET 83657 09/25/2024 02, 11/08/2021, 11/07/2021, Additional history exists CKD HGB USE SMARTSET 92890 10/14/202403/27, 03/27/2024, 10/15/2023, Additional history exists DTaP,Tdap,and Td Vaccines (3 [...] this encounter Medical Devices Implanted Type Area Retail Advisor Device Identifier Shelf Expiration Date Model / Serial / Lot Clip Quick 2.8mm 230cm - [id number] Implanted:Qty: 2 on 07/07/2022 by Vadim Nichols MD at ENDOSCOPY [facility] [employer] 06/02/2024 [id number] / / documented as of this encounter Procedures Procedure Name Priority Date/Time Associated Diagnosis Comments DIFFERENTIAL, AUTOMATED STAT 03/27/2024 9:30 AM EDT Iron deficiency anemia, unspecified iron deficiency anemia type CBC STAT 03/27/2024 9:30 AM EDT Iron deficiency anemia, unspecified iron deficiency anemia type CBC STAT 03/27/2024 9:30 AM EDT Iron deficiency anemia, unspecified iron deficiency anemia type documented in this encounter Results * (ABNORMAL) DIFFERENTIAL, AUTOMATED (03/27/2024 9:30 AM EDT) WBC 6.83 4.00 - 10.80 K/uL 03/27/2024 9:34 AM EDT [facility] [place] 56-02 Neutrophils % 62.4 40.0 - 75.0 % 03/27/2024 9:34 AM EDT [facility] 56 Lymphocytes % 20.9 18.0 - 42.0 % 03/27/2024 9:34 AM EDT [facility] 56- Monocytes % 8.9 1.0 - 11.0 % 03/27/2024 9:34 AM EDT [facility] 56- Eosinophils % 7.2(H) 0.0 - 6.0 % 03/27/2024 9:34 AM EDT [facility] 56- Basophils % 0.6 0.0 - 2.0 % 03/27/2024 9:34 AM EDT [facility] 56- Absolute Neutrophils 4.26 1.80 - 7.70 K/uL 03/27/2024 9:34 AM EDT [facility] 56 Absolute Lymphocytes 1.43 1.00 - 4.80 K/ul 03/27/2024 9:34 AM EDT [facility] 56- Absolute Monocytes 0.61 0.00 - 1.10 K/uL 03/27/2024 9:34 AM EDT [facility] 56 Absolute Eosinophils 0.49 0.00 - 0.70 K/uL 03/27/2024 9:34 AM EDT [facility] 56- Absolute Basophils 0.04 0.00 - 0.20 K/uL 03/27/2024 9:34 AM EDT [facility] 56 Blood Venous blood specimen / Unknown Venipuncture / Unknown 03/27/2024 9:30 AM EDT 03/27/2024 9:30 AM EDT Marquez Fiore MD LAB BLOOD ORDERABLES [facility] [address] [place] [address] * CBC (03/27/2024 9:30 AM EDT) WBC 6.83 4.00 - 10.80 K/uL 03/27/2024 9:34 AM EDT [facility] 56- RBC 4.58 4.50 - 5.25 M/uL 03/27/2024 9:34 AM EDT [facility] 56 HGB 14.1 14.0 - 16.8 g/dL 03/27/2024 9:34 AM EDT [facility] 56 HCT 41.5 40.0 - 48.4 % 03/27/2024 9:34 AM EDT [facility] 56 MCV 90.6 82.0 - 99.5 fL 03/27/2024 9:34 AM EDT [address] MCH 30.8 27.0 - 34.0 pg 03/27/2024 9:34 AM EDT [address] MCHC 34.0 32.0 - 36.0 g/dL 03/27/2024 9:34 AM EDT [address] RDW 14.7 11.5 - 15.5 % 03/27/2024 9:34 AM EDT [facility] 56 PLT 146 140 - 400 K/uL 03/27/2024 9:34 AM EDT [address] MPV 9.6 6.6 - 11.1 fL 03/27/2024 9:34 AM EDT [facility] 56 Blood Venous blood specimen / Unknown Venipuncture / Unknown 03/27/2024 9:30 AM EDT 03/27/2024 9:30 AM EDT Marquez Fiore MD LAB BLOOD ORDERABLES [address] [place], [place] [id number] documented in this encounter Visit Diagnoses Diagnosis Dyslipidemia, goal LDL below 70 Other and unspecified hyperlipidemia Iron deficiency anemia, unspecified iron deficiency anemia type documented in this encounter Advance Directives * [...] and were consensually agreed upon. Care Teams Software Verification Engineer Relationship Specialty Start Date End Date Jelani Wallace DO [address] [place] [address] PCP - General Family Medicine 09/30/18 documented as of this encounter
--- OUTSIDE RECORDS SUMMARY | 2024-05-15 12:34 | External Medical Summary ---
Author Name Unknown Address Unknown Organization K01:[facility] - [address] [place] [address] Laboratory Report Ordering Provider Test Date Status SELENE MCGREGOR 03/27/2024 09:30:04 Final Observation Date Value Abnormality Reference (Units ) Status Iron 03/27/2024 09:30:04 68 45-176 (ug /dL) Final Iron-binding capacity 03/27/2024 09:30:04 250 250-425 (ug/dL) Final Transferrin Sat % 03/27/2024 09:30:04 27 15 -55 (%) Final Performing Location [facility] - [address] [place] [address]
--- OUTSIDE RECORDS SUMMARY | 2024-05-15 12:34 | External Medical Summary ---
Author Name Unknown Address Unknown Organization K09:[facility] [place] [address] Laboratory Report Ordering Provider Test Date Status SELENE MCGREGOR 03/27/2024 09:30:04 Final Observation Date Value Abnormality Reference (Units ) Status WBC, Total 03/27/2024 09:30:04 6.83 4.00-10.8 0 (K/uL) Final RBC 03/27/2024 09:30:04 4.58 4.50-5.25 (M/uL) Final Hemoglobin 03/27/2024 09:30:04 14.1 14.0-16.8 (g/dL) Final HCT 03/27/2024 09:30:04 41.5 40.0-48.4 (%) Final MCV 03/27/2024 09:30:04 90.6 82.0-99.5 (fL) Final MCH 03/27/2024 09:30:04 30.8 27.0-34.0 (pg) Final MCHC 03/27/2024 09:30:04 34.0 32.0-36.0 (g/dL) Final RDW 03/27/2024 09:30:04 14.7 11.5-15.5 (%) Final Platelets 03/27/2024 09:30:04 146 140-400 (K /uL) Final MPV 03/27/2024 09:30:04 9.6 6.6-11.1 ( fL) Final Performing Location [facility] [place] [address]
--- OUTSIDE RECORDS SUMMARY | 2024-05-15 12:34 | External Medical Summary ---
Author Name Unknown Address Unknown Organization K09:[facility] [address] [place] [address] Laboratory Report Ordering Provider Test Date Status SELENE MCGREGOR 03/27/2024 09:30:04 Final Observation Date Value Abnormality Reference (Units ) Status BUN 03/27/2024 09:30:04 29 Above high normal 6-20 (mg/dL) Final Creatinine 03/27/2024 09:30:04 1.6 Above high normal 0.6-1.2 (mg/dL) Final Glomerular filtration rate/1.73 sq M.predicted [Volume Rate/Area] in Serum, Plasma or Blood by Creatinine-based formula (CKD-EPI) 03/27/2024 09:30:04 44 Below low normal >=60 (mL/min) Final eGFR is calculated based on the CKD-EPI 2020 equation. Sodium 03/27/2024 09:30:04 140 135-146 (m mol/L) Final Potassium 03/27/2024 09:30:04 4.1 3.5-5.1 (m mol/L) Final Cl 03/27/2024 09:30:04 107 98-107 (mm ol/L) Final CO2 03/27/2024 09:30:04 21 Below low normal 22- 32 (mmol/L) Final Anion gap 03/27/2024 09:30:04 12 7-15 (mmol /L) Final Glucose 03/27/2024 09:30:04 103 70-120 (mg /dL) Final Albumin 03/27/2024 09:30:04 4.3 3.8-5.0 (g /dL) Final AST (Aspartate aminotransferase) 03/27/2024 09:30:04 17 10-50 (U/L) Fin al Alk Phos 03/27/2024 09:30:04 108 35-130 (U/ L) Final Bilirubin, Total 03/27/2024 09:30:04 0.8 <=1 .2 (mg/dL) Final Calcium 03/27/2024 09:30:04 9.2 8.4-10.2 ( mg/dL) Final Protein 03/27/2024 09:30:04 6.7 6.0-8.3 (g /dL) Final ALT (Alanine aminotransferase) 03/27/2024 09:30:04 15 10-50 (U/L) Jonh tay Performing Location [facility] [place] [address] [place] [address]
--- OUTSIDE RECORDS SUMMARY | 2024-05-15 12:35 | External Medical Summary | Summary of Care ---
Author Name Unknown Organization [facility] Address [address] [place] [address] Phone [phone] Care Team Providers Care Lieutenant Governor Name Role Phone Pedro Pablo Wallacevoalejandra Taylorjoana Primary Care Provider Reason for Referral * Precert (Within 10 days (routine)) - Authorized Specialty Diagnoses / Procedures Referred By Veronique torres Referred To Contact Radiology Diagnoses Lesion of pancreas Procedures MRI PANCREAS W WO CONTRAST Sangita Fragoso DO [address] [place] [address] Referral ID Status Reason Start Date Expiration Date V isits Requested Visits Authorized [id number] Authorized 02/20/2024 999 999 Reason for Visit * Reason Onset Date Comments Test Results 02/08/2024 Unexpected or In determinate Result Encounter Details Date Type Department Care Team (Late st Contact Info) Description 02/08/2024 Telephone Laboratory, [place] [address] [place] [address] Berny Flores MD [address] [place] [address] Test Results (Unexpected or Indeterminate ... Allergies Active Allergy Reactions Criticality Noted Date [...] as of this encounter (statuses as of 02/13/2024) Medications Medication Sig Dispensed Refills Start Date [...] Tablet Sublingual (Nitrostat)Indicatio ns:Coronary artery disease involving [place] coronary artery of [place] heart without angina pectoris Place 1 Tablet [...] needed for Shortness of Breath. 01/28/2024 Active documented as of this encounter (statuses as of 02/13/2024) Active Problems Problem Noted Date Diagnosed Date Memory loss 09/19/2022 Nocturnal hypoxemia 12/13/2021 Anemia 11/08/2021 Syncope and collapse 11/07/2021 Myocardial injury 11/07/2021 Enlarged prostate with lower urinary tract sympt oms (LUTS) 11/07/2021 Streptococcal bacteremia 11/07/2021 Other iron deficiency anemias 10/28/2021 Dyslipidemia, goal LDL below 70 08/24/2021 Idiopathic peripheral autonomic neuropathy 06/28 Coronary artery disease invo lving [place] coronary artery of [place] heart without angina pectoris 07/07/2020 Hypertensive kidney [...] as of this encounter (statuses as of 02/13/2024) Resolved Problems Problem Noted Date Diagnosed Date [...] as of this encounter (statuses as of 02/13/2024) Immunizations Name Administration Dates Next Due COVID-19 [...] encounter Miscellaneous Notes * Telephone Encounter - Sangita Fragoso DO - 02/13/2024 7:46 PM EDT Myg to pt MRI pancreas ordered Please schedule * Telephone Encounter - Maria A Robert LPN - 02/13/2024 8:37 AM EDT Radiology in [place] calling back, this has not been addressed. Acosta from [place] is calling. Has been sent to ordering provider and PCP since 02/07 Sent to [place], as she is in [facility] covering pod * Telephone Encounter - Rhea Guaman OSA - 02/08/2024 9:07 PM EDT Hello- The radiologist discovered an unexpected or indeterminate finding on Farooq Alvarez ([id number]) and asks that you review the following report. Study Type: US ABDOMEN LIMITED Date of Study: 02/08/2024 IMPRESSION 1. Cholelithiasis. 2. Hepatic cyst. 3. Cystic lesion in the pancreatic tail. Recommend contrast-enhanced MRI/MRCP. 4. Heterogeneous echogenic lesion in the right kidney, possibly a partially calcified lesion. This may also be evaluated at the time of MRI. Please respond to this encounter to acknowledge receipt of this message and take responsibility to ensure this report is reviewed. Thank you, CLARISA Trinidad Client Service Rep [facility] [place] documented in this encounter Plan of Treatment Upcoming Encounters Date Type Department Care Team (Late st Contact Info) Description 03/13/2024 6:00 PM EDT Office Visit [facility] [address] [place] [address] Jelani Wallace DO [address] [place] [address] 04/11/2024 11:45 AM EDT Office Visit Hematology/Oncology [facility] [address] [place] [address] Marquez Fiore MD [address] [place] [address] 05/06/2024 9:30 AM EDT Imaging Vascular Lab, [facility] 2nd [facility] [address] [facility] [place] [address] 05/06/2024 11:30 AM EDT Imaging Vascular Lab, [facility] 2nd [facility] [address] [place] [address] 05/14/2024 10:30 AM EDT Office Visit Vascular Surgery, [facility] [address] [place] [address] Jordan Abarca MD [address] [place] [address] 06/25/2024 9:00 AM EST Office Visit Dermatology [facility] [address] [place], [place] [address] Cindy Sevilla PA-C 200 [facility] [place] [address] 09/09/2024 10:00 AM EST Office Visit Nephrology, [facility] [address] [place], [place] [address] Amira Butts MD [address] [place], [place] [address] 12/30/2024 10:40 AM EDT Office Visit Sleep Disorders Ctr [facility] 132 [place] [phone] Margoth Wallace DO [facility] [address] Scheduled Orders Name Type Priority Associated Diagnoses Orde r Schedule MRI PANCREAS W WO CONTRAST Medical Imaging Routine Lesion of pancreas Expected: 02/20/2024, Expires: 03/15/2025 Scheduled Procedures Name Priority Associated Diagnoses Date/Ti [...] Additional history exists CKD PHOS USE SMARTSET 12363 09/25/202409/07, 11/08/2021, 11/07/2021, Additional history exists CKD HGB USE SMARTSET 73632 10/14/202410/14, 10/15/2023, 03/30/2023, Additional history exists DTaP,Tdap,and [...] this encounter Medical Devices Implanted Type Area Tour Consultant Device Identifier Shelf Expiration Date Model / Serial / Lot Clip Quick 2.8mm 230cm - [id number] Implanted:Qty: 2 on 07/07/2022 by Vadim Nichols MD at ENDOSCOPY [facility] Stomach [employer] 06/02/2024 [id number]-[id number] / / documented as of this encounter Visit Diagnoses Diagnosis Lesion of pancreas- Primary Unspecified disease of pancreas documented in this encounter Advance Directives * [...] and were consensually agreed upon. Care Teams Lieutenant Governor Relationship Specialty Start Date End Date Jelani Wallace DO [address] [place] [address] [place] [address] PCP - General Family Medicine 09/30/18 documented as of this encounter
--- OUTSIDE RECORDS SUMMARY | 2024-05-15 12:35 | External Medical Summary | Summary of Care ---
Author Name Unknown Organization [facility] Address [address] [place] [address] Phone [phone] Care Team Providers Care Tire Buffer Name Role Phone Jelani Wallace DO Primary Care Provider Reason for Visit * Reason Onset Date Comments Appointment 02/04/2024 Encounter Details Date Type Department Care Team (Late st Contact Info) Description 02/04/2024 Telephone Family Practice [facility] [address] [place] [id number] Jelani Wallace DO [address] [place] [address] Appointment Allergies Active Allergy Reactions Criticality Noted [...] as of this encounter (statuses as of 02/05/2024) Medications Medication Sig Dispensed Refills Start Date [...] Active Rosuvastatin Calcium 20 MG Oral Tablet (Crestor)Indication [...] Tablet Sublingual (Nitrostat)Indicati ons: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 up to 3 doses in 15 minutes 25 Tablet 11 06/18/2023 Active Atenolol 25 MG Oral Tablet (Tenormin)Indicatio ns:HTN, [...] needed for Shortness of Breath. 01/28/2024 Active Cephalexin 500 MG Oral Capsule (Keflex) Take 1 Capsule by mouth in the morning and 1 Capsule at noon and 1 Capsule in the evening and 1 Capsule before bedtime. 01/28/2024 02/04/2024 Doxycycline Hyclate 100 MG Oral Tablet Take 1 Tablet by mouth in the morning and 1 Tablet before bedtime. 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 She stated that patient gets confused at times so she likes to make sure she knows things. Notified of below. No further questions at this time. * Telephone Encounter - Pricila White LPN - 02/05/2024 11:02 AM EDT Called and notified patient. Patient verbalized understanding. Pt reports he went to the ER yesterday again. Per patient scans and labs were repeated. Patient was sent home--nothing acute found on scans/testing. Patient asked that we return call to home in 30-40 minutes to speak with his . Pt states his is better at keeping things organized so he wants us to speak with his . Will call back shortly. * Telephone Encounter - Berny Flores MD - 02/04/2024 7:42 PM EDT He does not need a f.u after the US no - just need to discuss the results with he and when they come back. * Telephone Encounter - Pricila White LPN - 02/04/2024 9:57 AM EDT OV note states "Follow up tbd based on results". Patient does not need an appointment 1 week after the US, correct? Will follow up once results are reviewed? * Telephone Encounter - Elaine Johnston OSA - 02/04/2024 7:26 AM EDT No Appointments Available Patient declined appointments?: Yes What Visit Type is needed? Return If Acute Visit Type is needed, were surrounding clinics offered to patient (Yes/No)? No, explain will only se dr Delozier Was patient offered appointments with other available providers (Yes/No)? No, explain pt will onlt see Dr Lopez pt is having ultra sound on 02-08-2024 and needs fu 1 week later will not see any othe dr pereira pt at [phone] documented in this encounter Plan of Treatment Upcoming Encounters Date Type Department Care Team (Late st Contact Info) Description 02/08/2024 11:15 AM EDT Imaging Radiology [facility] [address] [place] [address] 03/13/2024 6:00 PM EDT Office Visit Family Practice [facility] [address] [place] [address] Jelani Wallace DO [address] [place] [address] 04/11/2024 11:45 AM EDT Office Visit Hematology/Oncology [facility] [place] [phone] Marquez Fiore MD 200 [facility] [place] [address] 06/25/2024 9:00 AM EST Office Visit Dermatology [facility] [place] [address] Cindy Sevilla PA-C 200 [facility] [place] [address] 09/09/2024 10:00 AM EST Office Visit Nephrology, [facility] [place] [address] Amira Butts MD 200 [facility] [place] [address] 12/30/2024 10:40 AM EDT Office Visit Sleep Disorders Ctr [facility] [address] [place] [phone] Margoth Wallace, DO [address] [place] [address] Scheduled Procedures Name Priority Associated Diagnoses Date/Ti [...] Additional history exists CKD PHOS USE SMARTSET 39062 09/25/202409/07, 11/08/2021, 11/07/2021, Additional history exists CKD HGB USE SMARTSET 25070 10/14/202410/14, 10/15/2023, 03/30/2023, Additional history exists DTaP,Tdap,and Td Vaccines (3 - Td or Tdap) 02/07/2026 02/08/2016, 02/20/2006 Pneumococcal Vaccine: 65+ Years Completed 02/08/2016, 08/18/2014, 02/25/2007 GARDASIL-HPV IMMUNIZATION SERIES Aged Out No longer eligible based on patient's age to complete this topic Hepatitis B Aged Out No longer eligi ble based on patient's age to complete this topic MENINGOCOCCAL (MENACTRA/MENVEO) Aged Out No longer eligible based on patient's age to complete this topic documented as of this encounter Medical Devices Implanted Type Area Cotton Agent Device Identifier Shelf Expiration Date Model / Serial / Lot Clip Quick 2.8mm 230cm - [id number] Implanted:Qty: 2 on 07/07/2022 by Vadim Nichols MD at ENDOSCOPY [facility] Stomach [employer] 06/02/2024 [id number]-202UR.A / / documented as [...] and were consensually agreed upon. Care Teams Tire Buffer Relationship Specialty Start Date End Date Jelani Wallace DO 132 [facility] [place] [address] PCP - General Family Medicine 09/30/18 documented as of this encounter
--- OUTSIDE RECORDS SUMMARY | 2024-05-15 12:35 | External Medical Summary | Summary of Care ---
Author Name Unknown Organization [facility] Address [address] [place] [address] Phone [phone] Care Team Providers Care Revenue Specialist Name Role Phone Jelani Wallace Primary Care Provider Reason for Visit * Reason Onset Date Comments Test Results 02/08/2024 Unexpected or In determinate Result Encounter Details Date Type Department Care Team (Late st Contact Info) Description 02/08/2024 Telephone Laboratory, [place] [address] [place] [address] Berny Flores MD [address] [place] [address] Test Results (Unexpected or Indeterminate ... [...] as of this encounter (statuses as of 02/11/2024) Medications Medication Sig Dispensed Refills Start Date [...] Tablet Sublingual (Nitrostat)Indicatio ns:Coronary artery disease involving [place] coronary artery of [place] heart without angina pectoris Place 1 Tablet [...] as of this encounter (statuses as of 02/11/2024) Active Problems Problem Noted Date Diagnosed Date Memory loss 09/19/2022 Nocturnal hypoxemia 12/13/2021 Anemia 11/08/2021 Syncope and collapse 11/07/2021 Myocardial injury 11/07/2021 Enlarged prostate with lower urinary tract sympt oms (LUTS) 11/07/2021 Streptococcal bacteremia 11/07/2021 Other iron deficiency anemias 10/28/2021 Dyslipidemia, goal LDL below 70 08/24/2021 Idiopathic peripheral autonomic neuropathy 06/28 Coronary artery disease invo lving [place] coronary artery of [place] heart without angina pectoris 07/07/2020 Hypertensive kidney [...] as of this encounter (statuses as of 02/11/2024) Resolved Problems Problem Noted Date Diagnosed Date [...] as of this encounter (statuses as of 02/11/2024) Immunizations Name Administration Dates Next Due COVID-19 [...] encounter Miscellaneous Notes * Telephone Encounter - Rhea Guaman OSA - 02/08/2024 9:07 PM EDT [place]- The radiologist discovered an unexpected or indeterminate finding on Farooq Alvarez ([id number]) and asks that you review the following [...] ensure this report is reviewed. Thank you, Rhea Guaman, CLARISA Client Service Rep [facility] documented in this encounter Plan of Treatment Upcoming Encounters Date Type Department Care Team (Late st Contact Info) Description 03/13/2024 6:00 PM EDT Office Visit Family [facility] [address] [place] [address] Jelani Wallace, 132 [place] [address] 04/11/2024 11:45 AM EDT Office Visit Hematology/Oncology [facility] 200 [facility] [place] [phone] Marquez Fiore MD 200 [facility] [place] [address] 06/25/2024 9:00 AM EST Office Visit Dermatology [facility] 200 [facility] [place] [address] Cindy Sevilla PA-C 200 [facility] [place] [address] 09/09/2024 10:00 AM EST Office Visit Nephrology, [facility] 200 [facility] [place] [address] Amira Butts MD 200 [facility] [place] [address] 12/30/2024 10:40 AM EDT Office Visit Sleep Disorders Ctr [facility] [place] [address] [place] [phone] Margoth Wallace DO [address] [place] [address] Scheduled Procedures Name Priority Associated Diagnoses Date/Ti [...] Additional history exists CKD PHOS USE SMARTSET 64628 09/25/202409/07, 11/08/2021, 11/07/2021, Additional history exists CKD HGB USE SMARTSET 71991 10/14/202410/14, 10/15/2023, 03/30/2023, Additional history exists DTaP,Tdap,and [...] this encounter Medical Devices Implanted Type Area Narrow Gauge Operator Device Identifier Shelf Expiration Date Model / Serial / Lot Clip Quick 2.8mm 230cm - [id number] Implanted:Qty: 2 on 07/07/2022 by Vadim Nichols MD at ENDOSCOPY [facility] Stomach [employer] 06/02/2024 [id number]-202UR.A / / documented as [...] and were consensually agreed upon. Care Teams Revenue Specialist Relationship Specialty Start Date End Date Jelani Wallace DO [address] [place] [address] PCP - General Family Medicine 09/30/18 documented as of this encounter
--- OUTSIDE RECORDS SUMMARY | 2024-05-15 12:35 | External Medical Summary | Summary of Care ---
Author Name Unknown Organization [facility] Address [address] [place] [address] Phone [phone] Care Team Providers Care Exhibition Designer Name Role Phone Jelani Wallacejoana Primary Care Provider Reason for Referral * Precert (Within 10 days (routine)) - Authorized Specialty Diagnoses / Procedures Referred By Veronique torres Referred To Contact Radiology Diagnoses Lesion of pancreas Procedures MRI PANCREAS W WO CONTRAST Vitaly Fragoso DO [address] [place] [address] Referral ID Status Reason Start Date Expiration Date V isits Requested Visits Authorized [id number] Authorized 02/20/2024 999 999 Reason for Visit * Reason Onset Date Comments Test Results 02/08/2024 Unexpected or In determinate Result Encounter Details Date Type Department Care Team (Late st Contact Info) Description 02/08/2024 Telephone Laboratory, [place] [address] [place] [address] Berny Flores MD [address] [place] [...] as of this encounter (statuses as of 02/14/2024) Medications Medication Sig Dispensed Refills Start Date [...] Tablet Sublingual (Nitrostat)Indicatio ns:Coronary artery disease involving [place] coronary artery of [place] heart without angina pectoris Place 1 Tablet [...] as of this encounter (statuses as of 02/14/2024) Active Problems Problem Noted Date Diagnosed Date Memory loss 09/19/2022 Nocturnal hypoxemia 12/13/2021 Anemia 11/08/2021 Syncope and collapse 11/07/2021 Myocardial injury 11/07/2021 Enlarged prostate with lower urinary tract sympt oms (LUTS) 11/07/2021 Streptococcal bacteremia 11/07/2021 Other iron deficiency anemias 10/28/2021 Dyslipidemia, goal LDL below 70 08/24/2021 Idiopathic peripheral autonomic neuropathy 06/28 Coronary artery disease invo lving [place] coronary artery of [place] heart without angina pectoris 07/07/2020 Hypertensive kidney [...] as of this encounter (statuses as of 02/14/2024) Resolved Problems Problem Noted Date Diagnosed Date [...] as of this encounter (statuses as of 02/14/2024) Immunizations Name Administration Dates Next Due COVID-19 [...] encounter Miscellaneous Notes * Telephone Encounter - Lisa Wallace OSA - 02/14/2024 6:58 AM EDT My g sent to pt * Addendum Note - Vitaly Fragoso DO - 02/13/2024 7:46 PM EDTAddended by: VITALY FRAGOSO on: 02/13/2024 07:46 PM Modules accepted: Orders * Telephone Encounter - Vitaly Fragoso DO - 02/13/2024 7:46 PM EDT Myg to pt MRI pancreas ordered Please schedule * Telephone Encounter - Maria A Robert LPN - 02/13/2024 8:37 AM EDT Radiology in [place] calling back, this has not been addressed. Acosta from [place] is calling. Has been sent to ordering provider and PCP since 02/07 Sent to [place], as she is in [place]'s covering pod * Telephone Encounter - Rhea Guaman OSA - 02/08/2024 9:07 PM EDT Hello- The radiologist discovered an unexpected or indeterminate finding on Farooq Alvarez ([id number]) and asks that you review the following [...] Thank you, CLARISA Trinidad Client Service Rep [facility] Medicine [place] documented in this encounter Plan of Treatment Upcoming Encounters Date Type Department Care Team (Late st Contact Info) Description 03/13/2024 6:00 PM EDT Office Visit Family Practice [facility] 132 [facility] [place] [address] Jelani Wallace, 132 [facility] [place] [address] 04/11/2024 11:45 AM EDT Office Visit Hematology/Oncology [facility] [place] [phone] Marquez Fiore MD 200 [facility] [place] [address] 05/06/2024 9:30 AM EDT [facility] [address] 05/06/2024 11:30 AM EDT Imaging Vascular Lab, [facility] 2nd [facility] [address] 05/14/2024 10:30 AM EDT Office Visit Vascular Surgery, [facility] 132 [facility] [place] [address] Jordan Abarca MD [address] [facility] [address] 06/25/2024 9:00 AM EST Office Visit Dermatology [facility] [address] [place] [address] Cindy Sevilla PA-C 200 [facility] [place] [address] 09/09/2024 10:00 AM EST Office Visit Nephrology, [facility] 200 [facility] [place], [place] [address] Amira Butts MD 200 [facility] [place], [place] [address] 12/30/2024 10:40 AM EDT [facility] [address] [place] [phone] Margoth Wallace, [address] [place] [address] Scheduled Orders Name Type Priority Associated Diagnoses [...] Additional history exists CKD PHOS USE SMARTSET 38303 09/25/202409/07, 11/08/2021, 11/07/2021, Additional history exists CKD HGB USE SMARTSET 27699 10/14/202410/14, 10/15/2023, 03/30/2023, Additional history exists DTaP,Tdap,and [...] this encounter Medical Devices Implanted Type Area Regulatory Affairs Analyst Device Identifier Shelf Expiration Date Model / Serial / Lot Clip Quick 2.8mm 230cm - [id number] Implanted:Qty: 2 on 07/07/2022 by Vadim Nichols MD at ENDOSCOPY [facility] Stomach [employer] 06/02/2024 [id number]-202UR.A / / documented as of [...] and were consensually agreed upon. Care Teams Exhibition Designer Relationship Specialty Start Date End Date Jelani Wallace DO 132 [facility] [place] [address] PCP - General Family Medicine 09/30/18 documented as of this encounter
--- OUTSIDE RECORDS SUMMARY | 2024-05-15 12:35 | External Medical Summary | Summary of Care ---
Author Name Unknown Organization [facility] Address [address] [place] [address] Phone [phone] Care Team Providers Care Patient Appointment Coordinator Name Role Phone Jelani Wallace Primary Care Provider Reason for Visit * Reason Onset Date Comments Test Results 02/08/2024 Unexpected or In determinate Result Encounter Details Date Type Department Care Team (Late st Contact Info) Description 02/08/2024 Telephone Laboratory, [place] [address] [place] [address] Berny Flores MD [address] [place] [address] Test Results (Unexpected or Indeterminate ... [...] Tablet Sublingual (Nitrostat)Indicatio ns:Coronary artery disease involving sleetm[place] coronary artery of sleetmute heart without angina pectoris Place 1 Tablet [...] neuropathy 06/28 Coronary artery disease invo lving sleetm[place] coronary artery of sleetm[place] heart without angina pectoris 07/07/2020 Hypertensive kidney [...] unexpected or indeterminate finding on Farooq Alvarez ([id number]) and asks that you review the following [...] you, Rhea Guaman, CLARISA Client Service Rep [facility] documented in this encounter Plan of Treatment Upcoming Encounters Date Type Department Care Team (Late st Contact Info) Description 03/13/2024 6:00 PM EDT Office Visit Family [facility] [address] [place] [address] Jelani Wallace, [address] [place] [address] 04/11/2024 11:45 AM EDT Office Visit Hematology/Oncology [facility] [address] [facility] [place] [phone] Marquez Fiore MD [address] [facility] [place] [address] 06/25/2024 9:00 AM EST Office Visit Dermatology [facility] [address] [facility] [place] [address] Cindy Sevilla PA-C [address] [facility] [place] [address] 09/09/2024 10:00 AM EST Office Visit Nephrology, [facility] [address] [facility] [place] [address] Amira Butts MD 200 [facility] [place] [address] 12/30/2024 10:40 AM EDT Office Visit Sleep Disorders Ctr [facility] [place] [address] [place] [phone] Margoth Wallace DO [address] [place] [address] Scheduled Procedures Name Priority Associated Diagnoses Date/Ti [...] Additional history exists CKD PHOS USE SMARTSET 10439 09/25/202409/07, 11/08/2021, 11/07/2021, Additional history exists CKD HGB USE SMARTSET 18492 10/14/202410/14, 10/15/2023, 03/30/2023, Additional history exists DTaP,Tdap,and [...] this encounter Medical Devices Implanted Type Area Barrel Cap Setter Device Identifier Shelf Expiration Date Model / Serial / Lot Clip Quick 2.8mm 230cm - [id number] Implanted:Qty: 2 on 07/07/2022 by Vadim Nichols MD at ENDOSCOPY [facility] Stomach [employer] 06/02/2024 [id number]-202UR.A / / documented as [...] and were consensually agreed upon. Care Teams Patient Appointment Coordinator Relationship Specialty Start Date End Date Jelani Wallace DO [address] [place] [address] PCP - General Family Medicine 09/30/18 documented as of this encounter
--- OUTSIDE RECORDS SUMMARY | 2024-05-15 12:35 | External Medical Summary | Summary of Care ---
Author Name Unknown Organization [facility] Address [address] [place] [address] Phone [phone] Care Team Providers Care Push Connector Assembler Name Role Phone Leticia Wallacealejandra Taylorjoana Primary Care Provider Reason for Visit * Reason Comments eRx-Medication Refill Encounter Details Date Type Department Care Team (Late st Contact Info) Description 02/25/2024 Refill Gastroenterology, [facility] [address] [place] [address] Jeff Calle CRNP [address] [facility] [place] [address] Allergies Active Allergy Reactions Criticality Noted Date [...] as of this encounter (statuses as of 02/27/2024) Medications Medication Sig Dispensed Refills Start Date [...] Tablet Sublingual (Nitrostat)Indicatio ns:Coronary artery disease involving moapa coronary artery of moapa heart without angina pectoris Place 1 Tablet [...] as of this encounter (statuses as of 02/27/2024) Active Problems Problem Noted Date Diagnosed Date Memory loss 09/19/2022 Nocturnal hypoxemia 12/13/2021 Anemia 11/08/2021 Syncope and collapse 11/07/2021 Myocardial injury 11/07/2021 Enlarged prostate with lower urinary tract sympt oms (LUTS) 11/07/2021 Streptococcal bacteremia 11/07/2021 Other iron deficiency anemias 10/28/2021 Dyslipidemia, goal LDL below 70 08/24/2021 Idiopathic peripheral autonomic neuropathy 06/28 Coronary artery disease invo lving moapa coronary artery of moapa heart without angina pectoris 07/07/2020 Hypertensive kidney [...] as of this encounter (statuses as of 02/27/2024) Resolved Problems Problem Noted Date Diagnosed Date [...] as of this encounter (statuses as of 02/27/2024) Immunizations Name Administration Dates Next Due COVID-19 [...] encounter Miscellaneous Notes * Telephone Encounter - Angelica Dodd LPN - 02/27/2024 8:01 AM EDTRefused Prescriptions: Disp Refills Omeprazole 40 MG Oral Capsule Delayed Rele*90 Cap*3 Sig: TAKE 1CAPSULE BY MOUTH IN THE MORNINGRefused By: Jaspreet DODD for Refusal: Appt. Required, please call patient * Telephone Encounter - Interface, E-Rx Ss Inbound - 02/27/2024 5:19 AM EDT Pending Prescriptions: Disp Refills Omeprazole 40 MG Oral Capsule Delayed Rele*90 Cap*3 Sig: TAKE 1 CAPSULE BY MOUTH IN THE MORNING * Telephone Encounter - Beata Bunch home office claim specialist - 02/26/2024 10:35 AM EDT Transferred to [facility] Thank you for your assistance Beata Bunch Soaking Pit Operator II [facility] 02/26/2024,10:36 AM * Telephone Encounter - Lia Zhu home office claim specialist - 02/26/2024 10:04 AM EDTPending Prescriptions: Disp Refills Omeprazole 40 MG Oral Capsule Delayed Rele*90 Cap*3 Sig: TAKE 1 CAPSULE BY MOUTH IN THE MORNING * Telephone Encounter - Lia Zhu home office claim specialist - 02/26/2024 10:02 AM EDT Received message from [facility] regarding patient needing an appointment. Call Placed, Left message on voicemail to call back and schedule appointment. Thank you, Lia Zhu Fire Equipment Inspector Helper [facility] 02/26/2024, 10:02 AM * Telephone Encounter - Shai Faye RPh - 02/26/2024 8:42 AM EDTPending Prescriptions: Disp Refills Omeprazole 40 MG Oral Capsule Delayed Rele*90 Cap*3 Sig: TAKE 1 CAPSULE BY MOUTH IN THE MORNING * Telephone Encounter - Shai Faye RPh - 02/26/2024 8:28 AM EDT Last OV was 01/2022 Please contact patient so that an appointment can be scheduled with his GASTROENTEROLOGY provider before this refill can be authorized. After contacting patient, please forward request to the provider they schedule with (if unable to reach, use [facility]). Last Visit: 01/11/2022 (in office), Visit date not found (telemedicine) Next Visit: Visit date not found Thanks, Robert Faye, Rupesh Clinical Pharmacist [facility] [phone] 02/26/2024 8:41 AM documented in this encounter Plan of Treatment Upcoming Encounters Date Type Department Care Team (Late st Contact Info) Description 03/12/2024 9:30 AM EDT Imaging Radiology [address], [address] [place] [address] 03/26/2024 2:20 PM EDT Office Visit Family Practice [facility] 132 [place] [address] Destiny Klein CRNP [address] [place] [address] 04/11/2024 11:45 AM EDT Office Visit Hematology/Oncology [facility] [address] [place] [phone] Marquez Fiore MD [address] [place] [address] 05/06/2024 9:30 AM EDT Imaging Vascular Lab, [facility] [address] [place] [address] 05/06/2024 11:30 AM EDT Imaging Vascular Lab, [address] [place] [address] 05/14/2024 10:30 AM EDT Office Visit Vascular Surgery, [facility] [address] [place] [address] Jordan Abarca MD [address] [place] [address] 06/25/2024 9:00 AM EST Office Visit Dermatology [facility] [address] [place] [address] Cindy Sevilla PA-C [address] [place] [address] 09/09/2024 10:00 AM EST Office Visit Nephrology, [facility] [address] [place] [address] Amira Butts MD [address] [place] [address] 12/30/2024 10:40 AM EDT Office Visit Sleep Disorders Ctr [facility] [address] [place] [address] Margoth Wallace, [address] [place] [address] Scheduled Procedures Name Priority Associated Diagnoses Date/Ti [...] Additional history exists CKD PHOS USE SMARTSET 31425 09/25/202409/07, 11/08/2021, 11/07/2021, Additional history exists CKD HGB USE SMARTSET 83916 10/14/202410/14, 10/15/2023, 03/30/2023, Additional history exists DTaP,Tdap,and [...] this encounter Medical Devices Implanted Type Area Table Games Floor Supervisor Device Identifier Shelf Expiration Date Model / Serial / Lot Clip Quick 2.8mm 230cm - [id number] Implanted:Qty: 2 on 07/07/2022 by Vadim Nichols MD at ENDOSCOPY [facility] Stomach [employer] ([employer]IE) [facility] 06/02/2024 [id number]-202UR.A / / documented as of [...] and were consensually agreed upon. Care Teams Push Connector Assembler Relationship Specialty Start Date End Date Jelani Wallace DO [address] [place] [address] PCP - General Family Medicine 09/30/18 documented as of this encounter
--- OUTSIDE RECORDS SUMMARY | 2024-05-15 12:35 | External Medical Summary | Summary of Care ---
Author Name Unknown Organization [facility] Address [address] [place] [address] Phone [phone] Care Team Providers Care Senior Vice President & General Counsel Name Role Phone Jelani Wallace Primary Care Provider Reason for Visit * Reason Onset Date Comments Test Results 02/08/2024 Unexpected or In determinate Result Encounter Details Date Type Department Care Team (Late st Contact Info) Description 02/08/2024 Telephone Laboratory, [place] [address] [place] [address] Berny Flores MD [address] [place] [address] Test Results (Unexpected or Indeterminate ... 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 Acosta from [place] is calling. Has been sent to ordering provider and PCP since 02/07 Sent to [facility], as she is in [facility] covering pod * Telephone Encounter - Rhea Guaman OSA - 02/08/2024 9:07 PM EDT [place]- The radiologist discovered an unexpected or indeterminate finding on Farooq Alvarez ([id number]) and asks that you review the following [...] Thank you, CLARISA Trinidad Client Service Rep [facility] documented in this encounter Plan of Treatment Upcoming Encounters Date Type Department Care Team (Late st Contact Info) Description 03/13/2024 6:00 PM EDT Office Visit [facility] [address] [place] [address] Jelani Wallace DO [address] [place] [address] 04/11/2024 11:45 AM EDT Office Visit Hematology/Oncology [facility] [place] [address] [place] [address] [address] [phone] Marquez Fiore MD 200 [facility] [place] [address] 06/25/2024 9:00 AM EST Office Visit Dermatology [facility] [place] [address] [place] [address] [address] Cindy Sevilla PA-C [address] [place] [address] [address] [address] 09/09/2024 10:00 AM EST Office Visit Nephrology, [facility] [address] [place] [address] [address] [address] Amira Butts MD [address] [place] [address] 12/30/2024 10:40 AM EDT Office Visit Sleep Disorders Ctr [facility] [place] [address] [place] [phone] Margoth Wallace DO [address] [place] [address] Scheduled Procedures Name Priority Associated Diagnoses Date/Ti [...] Additional history exists CKD PHOS USE SMARTSET 76660 09/25/202409/07, 11/08/2021, 11/07/2021, Additional history exists CKD HGB USE SMARTSET 74622 10/14/202410/14, 10/15/2023, 03/30/2023, Additional history exists DTaP,Tdap,and [...] this encounter Medical Devices Implanted Type Area Contact Lens Inspector Device Identifier Shelf Expiration Date Model / Serial / Lot Clip Quick 2.8mm 230cm - [id number] Implanted:Qty: 2 on 07/07/2022 by Vadim Nichols MD at ENDOSCOPY [facility] Stomach [employer] 06/02/2024 [id number]-202UR.A / / documented as of [...] and were consensually agreed upon. Care Teams Senior Vice President & General Counsel Relationship Specialty Start Date End Date Jelani Wallace DO [address] [place] [address] PCP - General Family Medicine 09/30/18 documented as of this encounter
--- OUTSIDE RECORDS SUMMARY | 2024-05-15 12:35 | External Medical Summary | Summary of Care ---
Author Name Unknown Organization [facility] Address [address] [place] [address] Phone [phone] Care Team Providers Care Aircraft Parts Assembler Name Role Phone Jelani Wallace Primary Care Provider Reason for Visit * Reason Onset Date Comments Test Results 02/08/2024 Unexpected or In determinate Result Encounter Details Date Type Department Care Team (Late st Contact Info) Description 02/08/2024 Telephone Laboratory, [place] [address] [place] [address] Berny Flores MD [address] [place] [address] Test Results (Unexpected or Indeterminate ... [...] Tablet Sublingual (Nitrostat)Indicatio ns:Coronary artery disease involving tlingit & haida coronary artery of tlingit & haida heart without angina pectoris Place 1 Tablet [...] neuropathy 06/28 Coronary artery disease invo lving tlingit & ha[place] coronary artery of tlingit & ha[place] heart without angina pectoris 07/07/2020 Hypertensive kidney [...] unexpected or indeterminate finding on Farooq Alvarez ([id number]) and asks that you review the following [...] you, Rhea Guaman, CLARISA Client Service Rep [facility] documented in this encounter Plan of Treatment Upcoming Encounters Date Type Department Care Team (Late st Contact Info) Description 03/13/2024 6:00 PM EDT Office Visit Family [facility] [address] [place] [address] Jelani Wallace, [address] [place] [address] 04/11/2024 11:45 AM EDT Office Visit Hematology/Oncology [facility] [address] [facility] [place] [phone] Marquez Fiore MD 200 [facility] [place] [address] 06/25/2024 9:00 AM EST Office Visit Dermatology [facility] [address] [facility] [place] [address] Cindy Sevilla PA-C [address] [facility] [place] [address] 09/09/2024 10:00 AM EST Office Visit Nephrology, [facility] [address] [facility] [place] [address] Amira Butts MD 200 [facility] [place] [address] 12/30/2024 10:40 AM EDT Office Visit Sleep Disorders Ctr [facility] [place] [address] [place] [phone] Margoth Wallace DO [address] [place] [address] Scheduled Procedures Name Priority Associated Diagnoses Date/Ti [...] Additional history exists CKD PHOS USE SMARTSET 52039 09/25/202409/07, 11/08/2021, 11/07/2021, Additional history exists CKD HGB USE SMARTSET 42550 10/14/202410/14, 10/15/2023, 03/30/2023, Additional history exists DTaP,Tdap,and [...] this encounter Medical Devices Implanted Type Area Conditioning Coach Device Identifier Shelf Expiration Date Model / Serial / Lot Clip Quick 2.8mm 230cm - [id number] Implanted:Qty: 2 on 07/07/2022 by Vadim Nichols MD at ENDOSCOPY [facility] Stomach [employer] 06/02/2024 HX-202UR.A / / documented as [...] and were consensually agreed upon. Care Teams Aircraft Parts Assembler Relationship Specialty Start Date End Date Jelani Wallace DO [address] [place] [address] PCP - General Family Medicine 09/30/18 documented as of this encounter
--- OUTSIDE RECORDS SUMMARY | 2024-05-15 12:35 | External Medical Summary | Summary of Care ---
Author Name Unknown Organization [facility] Address [address] [place] [address] Phone [phone] Care Team Providers Care Knock Up Assembler Name Role Phone Jelani Wallace DO Primary Care Provider Reason for Visit * Reason Comments New Med Request Encounter Details Date Type Department Care Team (Late st Contact Info) Description 02/28/2024 Refill Gastroenterology, [facility] [address] [place] [address] Jelani Wallace DO [address] [place] [address] Allergies Active Allergy Reactions Criticality Noted Date [...] as of this encounter (statuses as of 02/29/2024) Medications Medication Sig Dispensed Refills Start Date [...] Tablet Sublingual (Nitrostat)Indicatio ns:Coronary artery disease involving minto coronary artery of minto heart without angina pectoris Place 1 Tablet [...] as of this encounter (statuses as of 02/29/2024) Active Problems Problem Noted Date Diagnosed Date Memory loss 09/19/2022 Nocturnal hypoxemia 12/13/2021 Anemia 11/08/2021 Syncope and collapse 11/07/2021 Myocardial injury 11/07/2021 Enlarged prostate with lower urinary tract sympt oms (LUTS) 11/07/2021 Streptococcal bacteremia 11/07/2021 Other iron deficiency anemias 10/28/2021 Dyslipidemia, goal LDL below 70 08/24/2021 Idiopathic peripheral autonomic neuropathy 06/28 Coronary artery disease invo lving minto coronary artery of minto heart without angina pectoris 07/07/2020 Hypertensive kidney [...] as of this encounter (statuses as of 02/29/2024) Resolved Problems Problem Noted Date Diagnosed Date Resolved Date Unspecified dementia, unspec ified severity, without behavioral disturbance, psychotic disturbance, mood disturbance, and anxiety 01/31/2024 02/01/2024 Anemia in stage 4 chronic kidney disease 09/19/2022 06/25/2023 GI bleed 11/07/2021 11/08/2021 Acute blood loss anemia 11/07/2021 04/0 12/2021 HARLAN (acute kidney injury) 11/07/20212 Aspiration pneumonia 11/07/2021 022 Acute respiratory failure [...] as of this encounter (statuses as of 02/29/2024) Immunizations Name Administration Dates Next Due COVID-19 [...] encounter Miscellaneous Notes * Telephone Encounter - Theodore Gloria [facility] - 02/29/2024 2:24 PM EDTRefused Prescriptions: Disp Refills Omeprazole 40 MG Oral Capsule Delayed Rele*90 Cap*0 Sig: TAKE 1CAPSULE BY MOUTH IN THE MORNINGRefused By: THEODORE GLORIAeasleia for Refusal: Appt. Required,please call patient * Telephone Encounter - Theodore Gloria [facility] - 02/29/2024 2:21 PM EDT Duplicate request. See RE 02/25/24 where request was refused for appt needed. Attempts were already made to advise of appt needed. Thank you, Theodore Gloria, PharmD Clinical Pharmacist [facility] [phone] 02/29/2024, 2:22 PM documented in this encounter Plan of Treatment Upcoming Encounters Date Type Department Care Team (Late st Contact Info) Description 03/12/2024 9:30 AM EDT Imaging Radiology [facility] 1st [facility] [address] [place] [address] 03/26/2024 2:20 PM EDT Office Visit Family Practice [facility] [address] [place] [address] Destiny Klein CRNP 132 [facility] [place] [address] 04/11/2024 11:45 AM EDT Office Visit Hematology/Oncology [facility] [place] [address] [place] [phone] Marquez Fiore MD [address] [place] [address] 05/06/2024 9:30 AM EDT Imaging Vascular Lab, [facility] 2nd [facility] [place] [address] [place] [address] 05/06/2024 11:30 AM EDT Imaging Vascular Lab, [facility] 2nd Floor, [place] 132 [facility] [place] [address] 05/14/2024 10:30 AM EDT Office Visit Vascular Surgery, [facility] 132 [place] [address] Jordan Abarca MD [address] [place] [address] 06/25/2024 9:00 AM EST Office Visit Dermatology [facility] [address] [place] [address] Cindy Sevilla PA-C [address] [place] [address] 09/09/2024 10:00 AM EST Office Visit Nephrology, [facility] [address] [place] [address] Amira Butts MD [address] [place] [address] 12/30/2024 10:40 AM EDT Office Visit Sleep Disorders Ctr [facility] 132 [facility] [place] [phone] Margoth Wallace DO 132 [facility] [place] [address] Scheduled Procedures Name Priority Associated Diagnoses Date/Ti [...] Additional history exists CKD PHOS USE SMARTSET 00112 09/25/202409/07, 11/08/2021, 11/07/2021, Additional history exists CKD HGB USE SMARTSET 73161 10/14/202410/14, 10/15/2023, 03/30/2023, Additional history exists DTaP,Tdap,and [...] this encounter Medical Devices Implanted Type Area Research Instrumentation Technician Device Identifier Shelf Expiration Date Model / Serial / Lot Clip Quick 2.8mm 230cm - [id number] Implanted:Qty: 2 on 07/07/2022 by Vadim Nichols MD at ENDOSCOPY [facility] Stomach [employer] 06/02/2024 HX-202UR.A / / documented as of [...] and were consensually agreed upon. Care Teams Knock Up Assembler Relationship Specialty Start Date End Date Jelani Wallace DO [address] [place] [address] PCP - General Family Medicine 09/30/18 documented as of this encounter
--- OUTSIDE RECORDS SUMMARY | 2024-05-15 12:35 | External Medical Summary | Summary of Care ---
Author Name Unknown Organization [facility] Address [address] [place] [address] Phone [phone] Care Team Providers Care Tire Technician Name Role Phone Jelani Wallace Primary Care Provider Reason for Visit * Reason Onset Date Comments Test Results 02/08/2024 Unexpected or In determinate Result Encounter Details Date Type Department Care Team (Late st Contact Info) Description 02/08/2024 Telephone Laboratory, [facility] [address] [place] [address] eBrny Flores MD [address] [place] [address] Test Results (Unexpected or Indeterminate ... [...] as of this encounter (statuses as of 02/08/2024) Medications Medication Sig Dispensed Refills Start Date [...] Tablet Sublingual (Nitrostat)Indicatio ns:Coronary artery disease involving [place] coronary artery of [place] heart without angina pectoris Place 1 Tablet [...] as of this encounter (statuses as of 02/08/2024) Active Problems Problem Noted Date Diagnosed Date Memory loss 09/19/2022 Nocturnal hypoxemia 12/13/2021 Anemia 11/08/2021 Syncope and collapse 11/07/2021 Myocardial injury 11/07/2021 Enlarged prostate with lower urinary tract sympt oms (LUTS) 11/07/2021 Streptococcal bacteremia 11/07/2021 Other iron deficiency anemias 10/28/2021 Dyslipidemia, goal LDL below 70 08/24/2021 Idiopathic peripheral autonomic neuropathy 06/28 Coronary artery disease invo lving [place] coronary artery of [place] heart without angina pectoris 07/07/2020 Hypertensive kidney [...] as of this encounter (statuses as of 02/08/2024) Resolved Problems Problem Noted Date Diagnosed Date [...] as of this encounter (statuses as of 02/08/2024) Immunizations Name Administration Dates Next Due COVID-19 [...] unexpected or indeterminate finding on Farooq Alvarez ([id number]) and asks that you review the following [...] you, Rhea Guaman, CLARISA Client Service Rep [facility] documented in this encounter Plan of Treatment Upcoming Encounters Date Type Department Care Team (Late st Contact Info) Description 03/13/2024 6:00 PM EDT Office Visit Family [facility] [address] [place] [address] Jelani Wallace, [address] [place] [address] 04/11/2024 11:45 AM EDT Office Visit Hematology/Oncology [facility] [address] [facility] [place] [phone] Marquez Fiore MD [address] [facility] [place] [address] 06/25/2024 9:00 AM EST Office Visit Dermatology [facility] [address] [facility] [place] [address] Cindy Sevilla PA-C [address] [facility] [place] [address] 09/09/2024 10:00 AM EST Office Visit Nephrology, [facility] [address] [facility] [place] [address] Amira Butts MD [address] [facility] [place] [address] 12/30/2024 10:40 AM EDT Office Visit Sleep Disorders Ctr [facility] [place] [address] [place] [phone] Margoth Wallace DO [address] [place] [address] Scheduled Procedures Name Priority Associated Diagnoses Date/Ti [...] Additional history exists CKD PHOS USE SMARTSET 84617 09/25/202409/07, 11/08/2021, 11/07/2021, Additional history exists CKD HGB USE SMARTSET 01154 10/14/202410/14, 10/15/2023, 03/30/2023, Additional history exists DTaP,Tdap,and [...] this encounter Medical Devices Implanted Type Area Sports Medicine Trainer Device Identifier Shelf Expiration Date Model / Serial / Lot Clip Quick 2.8mm 230cm - [id number] Implanted:Qty: 2 on 07/07/2022 by Vadim Nichols MD at ENDOSCOPY [facility] [employer] 06/02/2024 [id number]-[id number] / / documented as [...] were consensually agreed upon. Care Teams Tire Technician Relationship Specialty Start Date End Date Jelani Wallace DO [address] [place] [address] PCP - General Family Medicine 09/30/18 documented as of this encounter
--- OUTSIDE RECORDS SUMMARY | 2024-05-15 12:36 | External Medical Summary | Summary of Care ---
Author Name Unknown Organization [facility] Address [address] [place] [address] Phone [phone] Care Team Providers Care Tamping Machine Operator Road Forms Name Role Phone Jelani Wallace DO Primary Care Provider Reason for Visit * Reason Onset Date Comments Appointment 02/04/2024 Encounter Details Date Type Department Care Team (Late st Contact Info) Description 02/04/2024 Telephone Family Practice [facility] [address] [place] [phone] Jelani Wallace DO [address] [place] [...] as of this encounter (statuses as of 02/04/2024) Medications Medication Sig Dispensed Refills Start Date [...] Tablet Sublingual (Nitrostat)Indicati ons:Coronary artery disease involving [place] coronary artery of [place] heart without angina pectoris Place 1 Tablet [...] and 1 Capsule before bedtime. 01/28/2024 02/04/2024 Active Doxycycline Hyclate 100 MG Oral Tablet Take 1 Tablet by mouth in the morning and 1 Tablet before bedtime. 01/28/2024 02/04/2024 Active documented as of this encounter (statuses as of 02/04/2024) Active Problems Problem Noted Date Diagnosed Date Memory loss 09/19/2022 Nocturnal hypoxemia 12/13/2021 Anemia 11/08/2021 Syncope and collapse 11/07/2021 Myocardial injury 11/07/2021 Enlarged prostate with lower urinary tract sympt oms (LUTS) 11/07/2021 Streptococcal bacteremia 11/07/2021 Other iron deficiency anemias 10/28/2021 Dyslipidemia, goal LDL below 70 08/24/2021 Idiopathic peripheral autonomic neuropathy 06/28 Coronary artery disease invo lving [place] coronary artery of [place] heart without angina pectoris 07/07/2020 Hypertensive kidney [...] as of this encounter (statuses as of 02/04/2024) Resolved Problems Problem Noted Date Diagnosed Date Resolved Date Unspecified dementia, unspec ified severity, without behavioral disturbance, psychotic disturbance, mood disturbance, and anxiety 01/31/2024 02/01/2024 Anemia in stage 4 chronic kidney disease 09/19/2022 06/25/2023 GI bleed 11/07/2021 11/08/2021 Acute blood loss anemia 11/07/2021 040 12/2021 HARLAN (acute kidney injury) 11/07/2021 Aspiration [...] as of this encounter (statuses as of 02/04/2024) Immunizations Name Administration Dates Next Due COVID-19 [...] Influenza, Split, I IV3, With Preserve, Inj 04/27/2015,04/16/2014,04/24/2013,09/2011,04/27/2011,05/10/2010,05/07/20,06/04/2008,06/24/2007,06/26/2006 04/16/2015 TDAP (age 10 and older)(Boostrix) 02/08/2016 [...] encounter Miscellaneous Notes * Telephone Encounter - Berny Flores MD [...] (Yes/No)? No, explain will only se dr Flores Was patient offered appointments with other available providers (Yes/No)? No, explain pt will onlt see Dr Lopez pt is having ultra sound on 02-08-2024 and needs fu 1 week later will not see any othe dr pereira pt at [phone] documented in this encounter Plan of Treatment Upcoming Encounters Date Type Department Care Team (Late st Contact Info) Description 02/08/2024 11:15 AM EDT Imaging Radiology [facility] [address] [place] [address] 03/13/2024 6:00 PM EDT Office Visit Family Practice [facility] [address] [place] [address] Jelani Wallace DO [address] [place] [address] 04/11/2024 11:45 AM EDT Office Visit Hematology/Oncology [facility] [address] [facility] [place] [phone] Marquez Fiore MD [address] [facility] [place], [place] [address] 06/25/2024 9:00 AM EST Office Visit Dermatology [facility] [place] [address] [facility] [place] [address] Cindy Sevilla PA-C [address] [facility] [place] [address] 09/09/2024 10:00 AM EST Office Visit Nephrology, [facility] [address] [facility] [place], [place] [address] Amira Butts MD [address] [facility] [place], [place] [address] 12/30/2024 10:40 AM EDT [facility] [address] [place] [phone] Margoth Wallace, [address] [facility] [address] Scheduled Procedures Name Priority Associated Diagnoses Date/Ti [...] Additional history exists CKD PHOS USE SMARTSET 73519 09/25/202409/07, 11/08/2021, 11/07/2021, Additional history exists CKD HGB USE SMARTSET 58716 10/14/202410/14, 10/15/2023, 03/30/2023, Additional history exists DTaP,Tdap,and [...] this encounter Medical Devices Implanted Type Area Crystallographer Device Identifier Shelf Expiration Date Model / Serial / Lot Clip Quick 2.8mm 230cm - [id number] Implanted:Qty: 2 on 07/07/2022 by Vadim Nichols MD at ENDOSCOPY [facility] [employer] 06/02/2024 [id number]-[id number] / / documented as [...] and were consensually agreed upon. Care Teams Tamping Machine Operator Road Forms Relationship Specialty Start Date End Date Jelani Wallace DO [address] [place] [address] PCP - General Family Medicine 09/30/18 documented as of this encounter
--- OUTSIDE RECORDS SUMMARY | 2024-05-15 12:36 | External Medical Summary | Summary of Care ---
Author Name Unknown Organization [facility] Address [address] [place] [address] Phone [phone] Care Team Providers Care Manager Nursing Name Role Phone Jelani Wallace DO Primary Care Provider Reason for Visit * Reason Onset Date Comments Appointment 02/04/2024 Encounter Details Date Type Department Care Team (Late st Contact Info) Description 02/04/[address] [facility] [address] [place] [phone] Jelani Wallace DO [address] [place] [...] Tablet Sublingual (Nitrostat)Indicati ons:Coronary artery disease involving [place] coronary artery of [place] heart without angina pectoris Place 1 Tablet [...] neuropathy 06/28 Coronary artery disease invo lving [place] coronary artery of [place] heart without angina pectoris 07/07/2020 Hypertensive kidney [...] see any othe dr pereira pt at [phone] documented in this encounter Plan of Treatment Upcoming Encounters Date Type Department Care Team (Late st Contact Info) Description 02/08/2024 11:15 AM EDT Imaging Radiology [facility] [address] [facility] [place] [address] 03/13/2024 6:00 PM EDT Office Visit Family Practice [facility] [address] [place] [address] Jelani Wallace, [address] [place] [address] 04/11/2024 11:45 AM EDT Office Visit Hematology/Oncology [facility] [address] [place] [phone] Marquez Fiore MD [address] [place] [address] 06/25/2024 9:00 AM EST Office Visit Dermatology [facility] [address] [place] [address] Cindy Sevilla PA-C [address] [facility] [place] [address] 09/09/2024 10:00 AM EST Office Visit Nephrology, [facility] [address] [place] [address] Amira Butts MD [address] [facility] [place] [address] 12/30/2024 10:40 AM EDT Office Visit Sleep Disorders Ctr [facility] [address] [place] [phone] Margoth Wallace, [address] [place] [address] Scheduled Procedures Name Priority Associated Diagnoses Date/Ti [...] Additional history exists CKD PHOS USE SMARTSET 07545 09/25/202409/07, 11/08/2021, 11/07/2021, Additional history exists CKD HGB USE SMARTSET 15926 10/14/202410/14, 10/15/2023, 03/30/2023, Additional history exists DTaP,Tdap,and [...] this encounter Medical Devices Implanted Type Area Dust Collector Attendant Device Identifier Shelf Expiration Date Model / Serial / Lot Clip Quick 2.8mm 230cm - [id number] Implanted:Qty: 2 on 07/07/2022 by Vadim Nichols MD at ENDOSCOPY [facility] [employer] 06/02/2024 [id number]-[id number] / / documented as [...] were consensually agreed upon. Care Teams Manager Nursing Relationship Specialty Start Date End Date Jelani Wallace DO [address] [place] [address] PCP - General Family Medicine 09/30/18 documented as of this encounter
--- NOTE | 2024-05-15 14:01 | Hospitalist Progress Note ---
Date of Service May 15, 2024 Assessment & Plan (1) Acute confusion: Plan: 79-year-old male with past medical history significant for dyslipidemia, cystic mass of pancreas, nocturnal hypoxemia use 2 L while sleeping, history of pneumonia, history of renal artery stenosis, history of abdominal aortic aneurysm, history of atherosclerosis of leg with intermittent claudication, peripheral vascular disease, hypertension, history of CAD s/p stent, CKD stage III, BPH, restless leg syndrome, idiopathic peripheral autonomic neuropathy, iron deficiency anemia, history of memory loss, who lives at home is brought in because of some confusion and poor appetite and found to have COVID. Metabolic encephalopathy due to to COVID infectionresolved COVID-19 infection Patient was brought into the hospital due to confusion noted by her spouse. Chest x-ray personally reviewed; no acute finding Urinalysis not suggestive of infection Started on remdesivir and Decadron. Will hold off on additional Decadron for the time being as chest x-ray does not suggest pneumonitis Wean off oxygen as tolerated History of CAD status post stents On atenolol, Plavix and Crestor, continue History of PVD On Plavix and Crestor, continue Hypertension On amlodipine and atenolol, continue BPH On Proscar, continue Dementia on memantine, continue GERD On omeprazole, continue Hyperlipidemia On statin, continue Nocturnal hypoxia Uses 2 L oxygen while sleeping Thrombocytopenia Platelets 127 Monitor DVT prophylaxis Heparin subcu Monitor platelets Disposition Med/telemetry Full code. Please note the above document was generated using voice recognition software. It may contain grammatical, syntax or spelling errors. Any formal questions or concerns about the content, text or information contained within the body of this dictation should be directly addressed to the provider for clarification Admission and Anticipated Discharge Date Admission Date: May 14, 2024 Subjective Patient seen and examined at bedside. Comfortable; not in distress. Denies fever, chills, chest pain, shortness of breath, abdominal pain or urinary symptoms. No significant overnight events Review of Systems Review of Systems: All systems reviewed & are unremarkable except as noted in Subjective Physical Exam Physical Exam: General-Not in distress Lungs- clear to auscultation and percussion Heart- regular rhythm; no murmur, no gallop, no rub appreciated Abdomen- normal bowel sounds, soft, nontender, no distension Extremities- no pretibial edema, no erythema Neuro- alert, oriented PERRL, no facial palsy; no dysarthria; moves extremities Skin- warm & dry Results & Data Results & Data Vital Signs (Past 12 Hours) Vital Signs Temp Pulse Pulse Resp BP Pulse Ox O2 Del Method 05/15/24 12:44 86 20 132/64 97 Nasal Cannula 05/15/24 08:21 36.9 C 62 22 167/75 H 95 Nasal Cannula 05/15/24 07:30 60 05/15/24 02:42 36.6 C 58 L 18 155/71 H 95 Nasal Cannula O2 Flow Rate 05/15/24 12:44 2 05/15/24 08:21 2 05/15/24 07:30 05/15/24 02:42 2
[2024-05-15] MEDS: REMDESIVIR 100 MG in SODIUM CHLORIDE 0.9% 230 ML IV SCH (20:08)
[2024-05-16] MEDS: OLANZapine 10 MG/2.1 ML SDV IM STA ×2 (03:04→10:51)
[2024-05-16 06:15] LABS: Hematocrit (blood only) 37.9 % (42.0-52.0); Hemoglobin 13.5 g/dl (14.0-18.0); Immature Granulocytes # (auto) 0.01 K/uL (0.01-0.20); Immature Granulocytes % (auto) 0.2 %; Lymphocytes # (auto) 0.53 K/uL (1.20-3.40); Lymphocytes % (auto) 11.5 %; Mean Corpuscular Hemoglobin 30.8 pg (25.0-34.0); Mean Corpuscular Hgb Conc 35.6 g/dL (32.0-36.0); Mean Corpuscular Volume 86.3 fL (80.0-100.0); Mean Platelet Volume 10.8 fL (9.4-12.4); Monocytes # (auto) 0.57 K/uL (0.11-0.59); Monocytes % (auto) 12.4 %; Neutrophils % (auto) 75.9 %; Platelet Count 122 K/uL (130-400); RDW Coefficient of Variation 13.5 % (11.5-14.5); RDW Standard Deviation 42.4 fL (36.4-46.3); Red Blood Count 4.39 M/uL (4.70-6.10); White Blood Count 4.61 K/ul (4.8-10.8)
[2024-05-16 06:44] LABS: BUN Creatinine Ratio 21.7 (10-20); Calcium 9.2 mg/dl (8.6-10.3); Creatinine Clr Calc Pharmacy 35.6 ml/min; Potassium 3.9 mmol/L (3.5-5.1)
[2024-05-16] MEDS: ACETAMINOPHEN 325 MG TAB PO PRN (08:35)
[2024-05-16 12:13] VITALS: BP 155/75; RESP 16; TEMP 97.5; O2SAT 95
--- NOTE | 2024-05-16 13:41 | Discharge Summary ---
Date of Service May 16, 2024 Admission HPI Per Admitting Provider 79-year-old male with past medical history significant for dyslipidemia, cystic mass of pancreas, nocturnal hypoxemia use 2 L while sleeping, history of pneumonia, history of renal artery stenosis, history of abdominal aortic aneurysm, history of atherosclerosis of leg with intermittent claudication, peripheral vascular disease, hypertension, history of CAD s/p stent, CKD stage III, BPH, restless leg syndrome, idiopathic peripheral autonomic neuropathy, iron deficiency anemia, history of memory loss, who lives at home is brought in because of some confusion and poor appetite and found to have COVID. As per wi fe since last night patient seemed somewhat confused. He could not remember the bathroom. He could not dress himself. And had low-grade temperatures. Having lot of cough. And poor appetite. No nausea or vomiting. No chest pain. No abdominal pain. No back pain. No headache. No body aches. Has some runny nose. Some sore throat. Has some blurred vision. No difficulty swallowing. Normal bowel and bladder movements. And today was also shaky and was having unsteady gait. thought he might be having UTI as he had similar symptoms when he had UTI in the past and brought him to the ER .Currently in the ER he was saturating 88 to 90% on room air,and was placed on oxygen. Seems comfortable. in the room. As per patient had COVID booster in early April. Past medical history. As mentioned above. Past surgical history. Colonoscopy. EGD. Cardiac stents placed. Inguinal hernia repair. Social history. . Quit smoking 2003. Smoked 1 pack a day for 30 years. Currently no alcohol use. No drug use. Family history. Father had brain cancer. Mother had heart valve replacement. Uncle had WI. Admission Exam Per Admitting Provider General-Not in distress Head- atraumatic Eyes- PERRL. ENT- oropharynx clear Neck- supple, no JVD. Lungs- clear to auscultation and percussion Heart- regular rhythm; no murmur, no gallop, no rub appreciated Abdomen- normal bowel sounds, soft, nontender, no distension Extremities- no pretibial edema, no erythema Neuro- alert, oriented PERRL, no facial palsy; no dysarthria; moves extremities Skin- warm & dry Principal Diagnosis COVID-19 infection Metabolic encephalopathy due to COVID-19 infection Discharge Exam General-Not in distress Lungs- clear to auscultation and percussion Heart- regular rhythm; no murmur, no gallop, no rub appreciated Abdomen- normal bowel sounds, soft, nontender, no distension Extremities- no pretibial edema, no erythema Neuro- alert, oriented PERRL, no facial palsy; no dysarthria; moves extremities Skin- warm & dry Discharge Data Allergies Allergy/AdvReac Type Severity Reaction Status Date / Time amoxicillin Allergy Severe Rash Verified 05/14/24 20:38 Sulfa (Sulfonamide AdvReac Intermediate Hives Verified 05/14/24 20:38 Antibiotics) linezolid AdvReac Unknown DIZZINESS, Verified 05/14/24 20:38 CHEST PAIN AFTER 4TH DOSE.pt not sure. monoferric Allergy Severe syncope, Uncoded 05/14/24 20:38 vomiting Consultations 05/14/24 20:05 ED Decision to Admit Stat Ordered Studies 05/14/24 17:07 CT head/brain wo con Stat 05/14/24 18:04 CT abd pelvis wo con Stat Hospital Course (1) Acute confusion: 79-year-old male with past medical history significant for dyslipidemia, cystic mass of pancreas, nocturnal hypoxemia use 2 L while sleeping, history of pneumonia, history of renal artery stenosis, history of abdominal aortic aneurysm, history of atherosclerosis of leg with intermittent claudication, peripheral vascular disease, hypertension, history of CAD s/p stent, CKD stage III, BPH, restless leg syndrome, idiopathic peripheral autonomic neuropathy, ir on deficiency anemia, history of memory loss, who lives at home is brought in because of some confusion and poor appetite and found to have COVID. Chest x-ray was done on admission which did not show infiltrates. Urinalysis did not suggest infection Patient was admitted to medical floor for close monitoring. Patient initially required oxygen which was gradually weaned off and he was saturating well on room air at the time of the discharge. Patient also became delirious at times requiring IM Zyprexa. At the time of the discharge, he was alert, oriented to self, place and person. Discussion was done with the patient's at bedside; decision was made to discharge him home after physical therapy evaluation. Patient had physical therapy evaluation; recommended 24-hour supervision which was discussed with patient's by the physical therapy. Physical therapy referral was give to CM at the time of discharge. Please note the above document was generated using voice recognition software. It may contain grammatical, syntax or spelling errors. Any formal questions or concerns about the content, text or information contained within the body of this dictation should be directly addressed to the provider for clarification Total Time Total Time Spent Total Time Spent (In Minutes): 34 Total Time Includes: Examination of the Patient, Discharge Planning, Medication Reconciliation, Communication With Other Providers and Other Discharge Plan Discharge Items Patient Disposition: Home - Home Health Services Reason For Visit: COVID, HYPOXIA Discharge Diagnosis: COVID-19 infection Activity: Resume your previous activity Non-emergency contact: Primary Care Provider Call non-emergency contact if: you have any medication questions and your symptoms worsen Follow-up/Referrals: Jelani Wallace DO [Primary Care Provider] - (Date & Time 05/21/2024 9:00 AM Provider Jelani Wallace DO Department Family [facility] ) Diet: Regular Pending Studies at Discharge: No Stand-Alone Forms: My [facility], Smoking Cessation Medications and DC Order Prescriptions: Continued atenolol 25 mg Tablet 25 mg PO QAM rosuvastatin 20 mg Tablet 20 mg PO QAM omega 0-wej-bps-fish oil [Fish Oil] 1,200 (144-216) mg Capsule 1 cap PO QAM multivitamin Tablet 0.5 tab PO BID amlodipine 2.5 mg tablet 2.5 mg PO BID omeprazole 20 mg capsule,delayed release(DR/EC) 40 mg PO QAM clopidogrel 75 mg tablet 75 mg PO QAM finasteride 5 mg tablet 5 mg PO QAM memantine 5 mg Tablet 5 mg PO BID fluorouracil 5 % cream 1 applic TOPICAL BID PRN (Reason: FLARE) nitroglycerin 0.4 mg tablet, sublingual 0.4 mg sublingual DAILY PRN (Reason: Chest Pain) Discharge Orders: Discharge Order (Routine); Ordered 05/16/24 Ordered By: Chip Ruiz Admission Data Admit Date/Time: 05/14/24 20:58 Attending Provider: Chip Ruiz Admit Provider: Tiburcio Garcia Primary Care Provider: Jelani Wallace Other Providers: Tiburcio Garcia
[2024-05-16 13:56] VITALS: PULSE 65
== END 2024-05-16 14:57 | disposition home or self-care (01) | DRG 177 ==
LOC: ED 16:54 → 2W 20:58
DX: I73.9 Peripheral vascular disease, unspecified; Z79.01 Long term (current) use of anticoagulants; Z99.81 Dependence on supplemental oxygen; Z79.82 Long term (current) use of aspirin; E78.5 Hyperlipidemia, unspecified; G25.81 Restless legs syndrome; G93.41 Metabolic encephalopathy; Z79.4 Long term (current) use of insulin; Z95.5 Presence of coronary angioplasty implant and graft; K21.9 Gastro-esophageal reflux disease without esophagitis; Z87.440 Personal history of urinary (tract) infections; Z11.52 Encounter for screening for COVID-19; I25.10 Atherosclerotic heart disease of native coronary artery without angina pectoris; Z88.1 Allergy status to other antibiotic agents; Z79.899 Other long term (current) drug therapy; U07.1 COVID-19; Z88.0 Allergy status to penicillin; Z87.891 Personal history of nicotine dependence; Z82.49 Family history of ischemic heart disease and other diseases of the circulatory system; F03.90 Unspecified dementia, unspecified severity, without behavioral disturbance, psychotic disturbance, mood disturbance, and anxiety; N18.32 Chronic kidney disease, stage 3b; N40.0 Benign prostatic hyperplasia without lower urinary tract symptoms; R09.02 Hypoxemia; I12.9 Hypertensive chronic kidney disease with stage 1 through stage 4 chronic kidney disease, or unspecified chronic kidney disease; Z88.2 Allergy status to sulfonamides; D69.6 Thrombocytopenia, unspecified; Z79.02 Long term (current) use of antithrombotics/antiplatelets; Z87.01 Personal history of pneumonia (recurrent); Z86.79 Personal history of other diseases of the circulatory system